=== PATIENT | female | born 1940 | race Caucasian/White ===

== ENCOUNTER 2019-02-26 11:08 | Inpatient (IN) | payer MEDICARE, OTHER ==
[~2019-02-26] VITALS: Ht 157.5 cm; Wt 94.1 kg
[2019-02-26] MEDS ORDERED: NS IV 1000 ML 1,000 ML IV SCH (11:16)
[2019-02-26] MEDS ORDERED: ACETAMINOPHEN 500 MG TAB (TYLENOL) PO PRN (11:30)
[2019-02-26] MEDS ORDERED: BISACODYL 10 MG SUPP (DULCOLAX) PR PRN (11:30)
[2019-02-26] MEDS ORDERED: CALCIUM CARBONATE 500 MG (TUMS) TAB.CHEW PO PRN (11:30)
[2019-02-26] MEDS ORDERED: ONDANSETRON 4 MG/2 ML (SDV) Z0FRAN IVP PRN (11:30)
[2019-02-26] MEDS ORDERED: DOCUSATE SODIUM 100 MG (COLACE) CAP PO PRN (11:30)
[2019-02-26] MEDS ORDERED: LOPERAMIDE 2 MG (IMODIUM) TABLET PO PRN (11:30)
[2019-02-26] MEDS ORDERED: diphenhydrAMINE 25 MG TAB (BENADRYL) PO PRN (11:30)
[2019-02-26] MEDS ORDERED: MELATONIN 3 MG TABLET PO PRN (11:30)
[2019-02-26 13:20] VITALS: BP 136/76
[2019-02-26 13:53] LABS: BILIRUBIN,URINE NEGATIVE (NEGATIVE); CLARITY,URINE CLEAR; COLOR,URINE YELLOW; GLUCOSE, URINE (UA) NEGATIVE (NEGATIVE); KETONES,URINE NEGATIVE (NEGATIVE); LEUKOCYTE ESTERASE ,URINE NEGATIVE (NEGATIVE); NITRITE,URINE NEGATIVE (NEGATIVE); PH,URINE 5.5 (5-9); PROTEIN,URINE NEGATIVE (NEGATIVE)
[2019-02-26] MEDS ORDERED: TRIA1TAB3 PO (13:53)
[2019-02-26] MEDS ORDERED: LOSA100T57 PO (13:53)
[2019-02-26] MEDS ORDERED: CLOP75TA28 PO (13:53)
[2019-02-26 13:54] VITALS: BP 136/76
[2019-02-26] MEDS ORDERED: RT-ALBUTEROL SULF 2.5 MG/3 ML PRE-MIX VIAL INH PRN (14:00)
[2019-02-26 14:03] LABS: ABG BASE EXCESS 0.5 MMOL/L (-2.5-2.5); ABG OXYGEN SATURATION 98 % (94-100); ABG PCO2 35 MMHG (35-45); ABG PH 7.45 (7.37-7.43); ABG PO2 82 MMHG (79-93); ABG TCO2 25.2 MMOL/L (21.0-31.0)
[2019-02-26 14:04] LABS: AMORPHOUS SEDIMENT,UR RARE AMOR URATES /LPF; BACTERIA,URINE NEGATIVE /HPF; SQUAMOUS EPITHELIAL CELL,UR RARE /HPF
[2019-02-26 14:04] LABS: ALLENS TEST YES-POS; INSPIRED O2 RA; PATIENT TEMP 36.7; VENTILATOR NO
[2019-02-26] MEDS ORDERED: AMLO5TAB9 PO (14:17)
[2019-02-26] MEDS ORDERED: FLEC150T15 PO (14:17)
[2019-02-26 14:20] LABS: BASOPHILS % (AUTO) 0 % (0-10); EOSINOPHILS % (AUTO) 0 % (0-10); HEMATOCRIT 23 % (35-52); HEMOGLOBIN 7.9 G/DL (11.5-16.0); LYMPHOCYTES # (AUTO) 0.9 X 10^3 (1.0-4.0); LYMPHOCYTES % (AUTO) 9 % (12-44); MEAN CORPUSCULAR HEMOGLOBIN 30 PG (25-34); MEAN CORPUSCULAR HGB CONC 34 G/DL (32-36); MEAN CORPUSCULAR VOLUME 89 FL (80-99); MEAN PLATELET VOLUME 10.1 FL (7.4-10.4); MONOCYTES # (AUTO) 0.9 X 10^3 (0.0-1.0); MONOCYTES % (AUTO) 9 % (0-12); NEUTROPHILS # (AUTO) 8.3 X 10^3 (1.8-7.8); NEUTROPHILS % (AUTO) 81 % (42-75); PLATELET COUNT 202 10^3/uL (130-400); RED CELL DISTRIBUTION WIDTH 14.1 % (10.0-14.5); WHITE BLOOD COUNT 10.2 10^3/uL (4.3-11.0)
[2019-02-26] MEDS ORDERED: BIOT50002 SL (14:31)
[2019-02-26] MEDS ORDERED: MULT1TAB69 PO (14:31)
[2019-02-26] MEDS ORDERED: CHOL200025 PO (14:31)
[2019-02-26] MEDS ORDERED: ALLO100T PO (14:32)
[2019-02-26] MEDS ORDERED: HYDR-3812 PO (14:33)
[2019-02-26] MEDS ORDERED: ALPR0.254 PO (14:33)
[2019-02-26 14:45] LABS: ALANINE AMINOTRANSFERASE 7 U/L (0-55); ALBUMIN 3.1 GM/DL (3.2-4.5); ALKALINE PHOSPHATASE 66 U/L (40-136); BILIRUBIN,TOTAL 0.3 MG/DL (0.1-1.0); BUN/CREATININE RATIO 18; CARBON DIOXIDE 23 MMOL/L (21-32); CHLORIDE 97 MMOL/L (98-107); GFR ESTIMATED 33; GLUCOSE 109 MG/DL (70-105); POTASSIUM 4.5 MMOL/L (3.6-5.0); SODIUM 128 MMOL/L (135-145); TOTAL PROTEIN 5.7 GM/DL (6.4-8.2)
[2019-02-26 14:47] LABS: INR 1.1 (0.8-1.4); PROTHROMBIN TIME PATIENT 14.2 SEC (12.2-14.7)
--- NOTE | 2019-02-26 14:48 | Diagnostic Imaging Report ---
INDICATION: Syncope. TIME OF EXAM: 02:35 p.m. COMPARISON: No prior studies are available for comparison. FINDINGS: The heart size is normal. The pulmonary vascularity is unremarkable. The lungs are clear. No infiltrate, effusion or pneumothorax is detected. IMPRESSION: No acute cardiopulmonary process is detected. Dictated by: Dictated on workstation # [id number]
--- NOTE | 2019-02-26 15:09 | Diagnostic Imaging Report ---
PROCEDURE: CT head without contrast. TECHNIQUE: Multiple contiguous axial images were obtained through the brain without the use of intravenous contrast. Auto Exposure Controls were utilized during the CT exam to meet ALARA standards for radiation dose reduction. INDICATION: Syncope. COMPARISON: No prior studies are available for comparison. FINDINGS: Ventricles and sulci are consistent with the patient's age. Moderate periventricular hypodensity is noted, consistent with senescent change. No sulcal effacement or midline shift is identified. No acute intra-axial or extra-axial hemorrhage is detected. Cisterns are patent. Visualized paranasal sinuses are clear. IMPRESSION: Senescent changes. No acute intracranial process is detected. Dictated by: Dictated on workstation # [id number]
[2019-02-26] MEDS: ALPRAZolam 0.25 MG (XANAX) TAB PO PRN ×2 (15:54→20:10)
[2019-02-26 16:00] VITALS: BP 169/87
--- NOTE | 2019-02-26 16:02 | Consultation-Cardiology ---
HPI-Cardiology Cardiology Consultation: Date of Consultation 02/26/19 Date of Admission Attending Physician Sharon Chaves DO Admitting Physician La,Local Physician Consulting Physician Ludy LYNN MD HPI: Time Seen by a Provider: 13:00 Chief Complaint: Syncope, atrial fibrillation This is a 79-year-old lady who follows with [facility] cardiology. She has history of atrial fibrillation. She has recent back surgery. However has had episodes of fainting, anemia. She denies any chest pain, shortness of breath, palpitations or lower extremity swelling. Review of Systems-Cardiology Review of Systems Constitutional: As described under HPI; No As described under HPI, No no symptoms reported, No chills, No fever, No lightheadedness Eyes: No As described under HPI, No no symptoms reported, No blindness, No blurred vision, No contact lenses, No drainage, No decreased acuity, No foreign body sensation, No pain, No vision change Ears/Nose/Throat: No As described under HPI, No no symptoms reported, No chronic hearing loss, No ear discharge, No ear pain, No nasal drainage, No ulcerations Respiratory: No no symptoms reported; As described under HPI; No As described under HPI, No cough, No orthopnea, No shortness of breath, No SOB with excertion Cardiovascular: No no symptoms reported; As described under HPI; No As de scribed under HPI, No chest pain, No edema, No irregular heart rate, No lightheadedness, No palpitations; syncope Gastrointestinal: No no symptoms reported, No As described under HPI, No abdomen distended, No abdominal pain, No blood streaked bowels, No constipation, No diarrhea, No nausea, No vomiting, No stool coloration changes Genitourinary: No As described under HPI, No burning, No dysuria, No discharge, No frequency, No flank pain, No hematuria, No urgency : Yes : No Skin: No rash, No skin related problems, No ulcerations Psychiatric/Neurological: No anxiety, No depression, No seizure, No focal weakness, No syncope Hematologic: No bleeding abnormalities VRW-Mzfvdi-Lwmyoy Hx Patient Social History Alcohol Use: Denies Use Recreational Drug Use: No Smoking Status: Former Smoker Type Used: Cigarettes Recent Foreign Travel: No Recent Infectious Disease Expo: No Hospitalization with Isolation: Unknown Physical Abuse Screen: No Sexual Abuse: No Immunizations Up To Date Date of Influenza Vaccine: Jan 02, 2019 Past Medical History PMH As described under Assessment. Family Medical History Family History: Patient reports no known family medical history. Allergies and Home Medications Allergies Coded Allergies: oxycodone (Verified Allergy, Unknown, Vomiting, 02/26/19) Home Medications Allopurinol 100 Mg Tablet, 100 MG PO DAILY, (Reported) LAST FILLED #90 11-05-18 Alprazolam 0.25 Mg Tablet, 0.125-0.25 MG PO DAILY PRN for ANXIETY, (Reported) TAKES 1/2 TO 1 (0.25MG) TABLET Amlodipine Besylate 5 Mg Tablet, 5 MG PO HS, (Reported) Flecainide Acetate 150 Mg Tablet, 150 MG PO BID, (Reported) Hydrocodone/Acetaminophen 1 Each Tablet, 1 TAB PO Q4H PRN for PAIN-MODERATE (5- 7), (Reported) Patient Home Medication List Home Medication List Reviewed: Yes Physical Exam-Cardiology Physical Exam Vital Signs/I&O 02/27/19 02/27/19 02/27/19 02/27/19 06:40 08:00 08:15 11:20 Temp 36.9 36.6 Pulse 74 79 71 Resp 20 18 B/P (MAP) 117/50 (72) 119/68 Pulse Ox 96 98 O2 Delivery Room Air Room Air Room Air 02/27/19 02/27/19 02/27/19 02/27/19 11:30 12:00 12:15 12:37 Temp 36.6 36.6 Pulse 67 66 65 Resp 18 22 B/P (MAP) 130/71 139/79 (99) Pulse Ox 98 99 O2 Delivery Room Air Room Air Room Air 02/27/19 02/27/19 14:35 16:00 Temp 36.6 36.5 Pulse 74 71 Resp 19 B/P (MAP) 150/76 138/69 (92) Pulse Ox 98 O2 Delivery Room Air 02/27/19 00:00 Intake Total 1050 ml Output Total 550 ml Balance 500 ml Capillary Refill : Constitutional: appears stated age; No apparent distress; well-developed, well- nourished HEENT: PERRL; No discharge; hearing is well preserved, oral hygience is good; No ulceration, No xanthelasmas are seen Neck: No carotid bruit; carotid pulses are 2 + bilaterally Respiratory: chest is bilaterally symmetric, lungs clear to auscultation Cardiovascular: regular rate-rhythm, S1 and S2 Gastrointestinal: soft, audible bowel sounds; No spleenomegaly Rectal: deferred Extremities: normal range of motion; No clubbing, No cyanosis; no lower extremity edema bilateral; No significant edema Neurologic/Psychiatric: no motor/sensory deficits, alert, normal mood/affect, oriented x 3, power is 5/5 both on sides Skin: normal color; No rash, No ulcerations Data Review Labs Laboratory Tests 02/27/19 03:20: White Blood Count 8.1, Red Blood Count 2.39L, Hemoglobin 7.1L, Hematocrit 21L, Mean Corpuscular Volume 90, Mean Corpuscular Hemoglobin 30, Mean Corpuscular Hemoglobin Concent 33, Red Cell Distribution Width 14.2, Platelet Count 200, Mean Platelet Volume 10.2, Neutrophils (%) (Auto) 63, Lymphocytes (%) (Auto) 24, Monocytes (%) (Auto) 10, Eosinophils (%) (Auto) 3, Basophils (%) (Auto) 0, Neutrophils # (Auto) 5.1, Lymphocytes # (Auto) 1.9, Monocytes # (Auto) 0.8, Eosinophils # (Auto) 0.2, Basophils # (Auto) 0.0, Sodium Level 130L, Potassium Level 3.9, Chloride Level 99, Carbon Dioxide Level 21, Anion Gap 10, Blood Urea Nitrogen 26H, Creatinine 1.32H, Estimat Glomerular Filtration Rate 39, BUN/Creatinine Ratio 20, Glucose Level 83, Calcium Level 8.7, Corrected Calcium 9.6, Total Bilirubin 0.4, Aspartate Amino Transf (AST/SGOT) 34, Alanine Aminotransferase (ALT/SGPT) 7, Alkaline Phosphatase 65, Total Protein 5.1L, Albumin 2.9L Microbiology 02/26/19 Blood Culture - Preliminary, Resulted No growth 02/26/19 Urine Culture - Final, Complete NO GROWTH 02/26/19 Influenza Types A,B Antigen (ANTHONY) - Final, Complete A/P-Cardiology Assessment/Admission Diagnosis Recent spine surgery, Paroxysmal atrial fibrillation, Chronic kidney disease, Anemia, Hyponatremia, Syncope. Plan Recent spine surgery, DVT prophylaxis. Paroxysmal atrial fibrillation, not on oral anticoagulation due to recent spine surgery. Flecainide as an outpatient. Chronic kidney disease, defer to the primary team. Anemia, transfusion. Hyponatremia, unclear etiology. Syncope. Telemetry, echocardiogram. Thank you for your consultation. Please call me if you have any questions. Malcom Lynn MD, FACP, FACC, [facility] [place], FHRS, CCDS Interventional Cardiology Cardiac Electrophysiology Vascular Medicine and Endovascular Interventions Clinical Quality Measures DVT/VTE Risk/Contraindication: Risk Factor Score Per Nursin RFS Level Per Nursing on Admit: 4+=Very High Contraindications-Pharm: Other *list below* Other: Recent spine surgery high risk for spinal hematoma and paralysis Ludy LYNN MD Feb 26, 2019 16:02
[2019-02-26] MEDS ORDERED: IRON SUCROSE 200 MG/10 ML (VENOFER) VIAL IV NR (17:00)
--- NOTE | 2019-02-26 17:09 | History & Physical ---
History of Present Illness HPI/Chief Complaint CC: Syncope HPI: This is a 79yoWF clinic patient of Dr Peraza in [place] and Dr Giovanny Cavazos Cardiology who has a h/o AF, gout and CRI with HTN who presents from [facility] to cardiac step down taking a detour from the planned IRF admit due to syncope at [facility] and decline of status. She has orthostasis episodes in the past but she had several episodes after she underwent spine surgery on Saturday by Dr Delong and require 1 unit of blood and BP remained labile limiting her PT and resulted in slow recovery. Bowels were very loose last night and had a significant episode of syncope prior to transferring to [facility] so she was instead admitted to acute care and Cardiology was consulted and underwent a sepsis w/u which was negative and placed on supportive care in the meantime. All results looked reassuring. Source: patient, family, RN/MD, old records Exam Limitations: no limitations Date Seen 02/26/19 Time Seen by a Provider: 17:00 Attending Physician Sharon James DO PCP No,Local Physician Referring Physician Date of Admission Feb 26, 2019 at 13:25 Home Medications & Allergies Home Medications Reviewed patient Home Medication Reconciliation performed by pharmacy medication reconciliations crime scene evidence technician and/or nursing. Patients Allergies have been reviewed. Allergies Allergies Coded Allergies oxycodone (Verified Allergy, Unknown, Vomiting, 02/26/19) Past Xpelnwa-Tsupxh-Ptnset Hx Past Med/Social Hx: Reviewed Nursing Past Med/Soc Hx, Reviewed and Corrections made Patient Social History Marrital Status: single Employed/Student: retired Alcohol Use: Denies Use Recreational Drug Use: No Smoking Status: Former Smoker Former Smoker, Quit: Mar 04, 1986 Type Used: Cigarettes Physical Abuse Screen: No Sexual Abuse: No Recent Foreign Travel: No Contact w/other who traveled: No Recent Hopitalizations: Yes Recent Infectious Disease Expo: No Immunizations Up To Date Date of Influenza Vaccine: Jan 02, 2019 Seasonal Allergies Seasonal Allergies: Yes Past Medical History Cardiac: Atrial Fibrillation, High Cholesterol, Hypertension Musculoskeletal: Osteoporosis, Arthritis, Chronic Back Pain, Gout Psychosocial: Anxiety History of Blood Disorders: No Family History Patient reports no known family medical history. Review of Systems Constitutional: see HPI, dizziness, malaise, weakness Gastrointestinal: diarrhea Musculoskeletal: back pain, joint pain Psychiatric/Neurological: Anxiety, Depressed All Other Systems Reviewed Negative Unless Noted: Yes Physical Exam Physical Exam Vital Signs Vital Signs - First Documented 02/26/19 02/26/19 02/26/19 13:05 13:20 13:54 Temp 36.7 Pulse 68 Resp 16 B/P (MAP) 136/76 (96) Pulse Ox 95 O2 Delivery Room Air FiO2 21 Capillary Refill : Height, Weight, BMI Height: '" Weight: lbs. oz. kg; 40.23 BMI Method: General Appearance: No Apparent Distress, WD/WN, Chronically ill, Obese Eyes: Bilateral Eye Normal Inspection, Bilateral Eye PERRL HEENT: PERRL/EOMI, Normal ENT Inspection, Pharynx Normal Neck: Full Range of Motion, Normal Inspection, Non Tender, Supple, Carotid Bruit Respiratory: Chest Non Tender, Lungs Clear, Normal Breath Sounds, No Accessory Muscle Use, No Respiratory Distress Cardiovascular: Regular Rate, Rhythm, No Edema, No Gallop, No JVD, No Murmur, Normal Peripheral Pulses Gastrointestinal: Normal Bowel Sounds, No Organomegaly, No Pulsatile Mass, Non Tender, Soft Back: Decreased Range of Motion, Muscle Spasm, Vertebral Tenderness Extremity: Normal Capillary Refill, Normal Inspection, Normal Range of Motion, Non Tender, No Calf Tenderness, No Pedal Edema Neurologic/Psychiatric: Alert, Oriented x3, rigging engineer II-XII Norm as Tested, Depressed Affect, Motor Weakness (generalized all extremities 4/5, fall risk) Skin: Normal Color, Warm/Dry Lymphatic: No Adenopathy Results Results/Procedures Labs Laboratory Tests 02/26/19 14:05 Patient resulted labs reviewed. Assessment/Plan Admission Diagnosis Assessment: Syncope Orthostasis episodes in the past HTN labile levels Renal insufficiency Hyponatremia Anemia s/p 1 unit of blood at [facility] Dehydration Chronic AF Plan: Home meds except Plavix due to recent spine surgery SCD's Cardiology evaluation Fluid restriction NS IVF 90cc/hr Venofer Admission Status: Inpatient Order (span 2 midnights) Reason for Inpatient Admission: Sycope with severe anemia following spine surgery Diagnosis/Problems Diagnosis/Problems (1) Syncope (2) Orthostasis (3) Hypertension (4) Status post lumbar spine surgery for decompression of spinal cord (5) Hyponatremia (6) Anemia (7) Iron deficiency (8) Renal insufficiency (9) Anxiety Clinical Quality Measures DVT/VTE Risk/Contraindication: Risk Factor Score Per Nursin RFS Level Per Nursing on Admit: 4+=Very High Contraindications-Pharm: Other *list below* Other: Recent spine surgery high risk for spinal hematoma and paralysis SHARON JAMES DO Feb 26, 2019 17:09
[2019-02-26] MEDS: NS IV 1000 ML 1,000 ML IV SCH (17:18)
[2019-02-26 20:00] VITALS: BP 124/67
[2019-02-26] MEDS: SENNA W/DOCUSATE (SENOKOT S) TABLET PO SCH (20:10)
[2019-02-26] MEDS: FLECAINIDE 100 MG (TAMBOCOR) TAB PO SCH (20:10)
[2019-02-26] MEDS: amLODIPine 5 MG (NORVASC) TAB PO SCH (20:10)
[2019-02-26] MEDS ORDERED: FLECAINIDE ACETATE 150 MG PO SCH (21:00)
[2019-02-26] MEDS: ACETAMINOPHEN 500 MG TAB (TYLENOL) PO PRN (22:25)
[2019-02-26] MEDS: HYDROcodone/APAP 5 MG/325 MG (LORTAB) TAB PO PRN (23:13)
[2019-02-27] VITALS (9 sets, daily range): BP systolic 117–160; BP diastolic 50–79
[2019-02-27] MEDS: NS IV 1000 ML 1,000 ML IV SCH (00:59)
[2019-02-27] MEDS: HYDROcodone/APAP 5 MG/325 MG (LORTAB) TAB PO PRN ×3 (03:24→13:28)
[2019-02-27 04:12] LABS: BASOPHILS % (AUTO) 0 % (0-10); EOSINOPHILS # (AUTO) 0.2 10^3/uL (0.0-0.3); EOSINOPHILS % (AUTO) 3 % (0-10); HEMATOCRIT 21 % (35-52); HEMOGLOBIN 7.1 G/DL (11.5-16.0); LYMPHOCYTES # (AUTO) 1.9 X 10^3 (1.0-4.0); LYMPHOCYTES % (AUTO) 24 % (12-44); MEAN CORPUSCULAR HEMOGLOBIN 30 PG (25-34); MEAN CORPUSCULAR HGB CONC 33 G/DL (32-36); MEAN CORPUSCULAR VOLUME 90 FL (80-99); MEAN PLATELET VOLUME 10.2 FL (7.4-10.4); MONOCYTES # (AUTO) 0.8 X 10^3 (0.0-1.0); MONOCYTES % (AUTO) 10 % (0-12); NEUTROPHILS # (AUTO) 5.1 X 10^3 (1.8-7.8); NEUTROPHILS % (AUTO) 63 % (42-75); PLATELET COUNT 200 10^3/uL (130-400); RED CELL DISTRIBUTION WIDTH 14.2 % (10.0-14.5); WHITE BLOOD COUNT 8.1 10^3/uL (4.3-11.0)
[2019-02-27] MEDS: fentaNYL INJECTION 100 MCG/2 ML AMP IVP PRN ×4 (04:36→21:41)
[2019-02-27 04:52] LABS: ALBUMIN 2.9 GM/DL (3.2-4.5); BILIRUBIN,TOTAL 0.4 MG/DL (0.1-1.0); CALCIUM 8.7 MG/DL (8.5-10.1); CREATININE SERUM 1.32 MG/DL (0.60-1.30); POTASSIUM 3.9 MMOL/L (3.6-5.0); TOTAL PROTEIN 5.1 GM/DL (6.4-8.2)
[2019-02-27] MEDS: FLECAINIDE 100 MG (TAMBOCOR) TAB PO SCH ×2 (08:19→20:25)
[2019-02-27] MEDS: ALLOPURINOL 100 MG (ZYLOPRIM) TAB PO SCH (08:20)
[2019-02-27] MEDS: SENNA W/DOCUSATE (SENOKOT S) TABLET PO SCH ×2 (08:20→20:27)
--- NOTE | 2019-02-27 08:38 | Occupational Therapy Eval ---
OT Evaluation-General/PLF Medical Diagnosis Admission Date Feb 26, 2019 at 13:25 Medical Diagnosis: syncope/weakness Onset Date: Feb 26, 2019 Therapy Diagnosis Therapy Diagnosis: impaired ADLs and functional mobility Precautions Precautions/Isolations: Fall Prevention, Standard Precautions, Pressure Ulcer Safety Interventions: None Referral Physician: Andie Referral Reason: Activity Tolerance, Self Care, Evaluation/Treatment, Strengthening/ROM Medical History Pertinent Medical History: Atrial Fib, Arthritis, HTN Additional Medical History Spinal surgery on Saturday02/23/19. Hx of AFib, gout, CRI with HTN, high cholesterol, osteoporosis, arthritis, chronic back pain, anxiety Current History Per H&P: "This is a 79yoWF clinic patient of Dr Peraza in [place] and Dr Giovanny Cavazos Cardiology who has a h/o AF, gout and CRI with HTN who presents from [facility] to cardiac step down taking a detour from the planned IRF admit due to syncope at [facility] and decline of status. She has orthostasis episodes in the past but she had several episodes after she underwent spine surgery on Saturday by Dr Delong and require 1 unit of blood and BP remained labile limiting her PT and resulted in slow recovery. Bowels were very loose last night and had a significant episode of syncope prior to transferring to [facility] IR[facility] so she was instead admitted to acute care and Cardiology was consulted and underwent a sepsis w/u which was negative and placed on supportive care in the meantime. All results looked reassuring." Reviewed History: Yes Social History Home: Single Level Current Living Status: Alone Entry Into Home: Stairs With Railing Steps Into Home: 2 (in garage) ADL-Prior Level of Function SCALE: Activities may be completed with or without assistive devices. 6-Wtcbjlgfrz-mmfhkez completes the activity by him/herself with no assistance from a helper. 5-Set-up or Clean-up Assistance-helper sets up or cleans up; patient completes activity. [place] assists only prior to or following the activity. 4-Supervision or Touching Assistance-helper provides verbal cues and/or touching/steadying and/or contact guard assistance as patient completes activity. Assistance may be provided throughout the activity or intermittently. 3-Partial/Moderate Assistance-helper does LESS THAN HALF the effort. Montgomery lifts, holds or supports trunk or limbs, but provides less than half the effort. 2-Substantial/Maximal Assistance-helper does MORE THAN HALF the effort. Montgomery lifts or holds trunk or limbs and provides more than half the effort. 2-Ukvkwvnbe-jzdwdr does ALL the effort. Patient does none of the effort to complete the activity. Or, the assistance of 2 or more helpers is required for the patient to complete the activity. If activity was not attempted, code reason: 7-Patient Refused. 9-Not Applicable-not attempted and the patient did not perform the activity before the current illness, exacerbation or injury. 10-Not Attempted due to Environmental Limitations-(lack of equipment, weather restraints, etc.). 88-Not Attempted due to Medical Conditions or Safety Concerns. ADL PLOF Comments Pt reports being independent with all ADLs prior to hospitalization/spinal surgery. She denies needing any assistance with ADL tasks. Self Care: Independent Functional Cognition: Independent DME/Equipment: Bath Chair, Shower (walk in shower with small step) DME/Equipment Comments Pt has a cane and walker at home that she had used prior to hospitalization. She uses the walker when she knows she is going to be on her feet a lot during the day. OT Current Status Subjective Pt seated EOB with daughter present. Agreeable to OT evaluation at this time. Pt reports pain of "10+/10". Nursing present to give pt pain meds during session. Pain Numeric Pain Scale: 10-Worst Possible Pain Mental Status/Objective Patient Orientation: Person, Place, Time, Situation Attachments: IV Current Glasses/Contacts: Yes Hearing Aids: No Dentures/Partials: No Hand Dominance: Right Upper Extremity ROM decreased, BUE shoulder flexion to approximately 90 degrees reporting increased pain with movement. Pt is able to bend arms and touch the back of her head. Upper Extremity Coordination WFL Upper Extremity Sensation Pt denies tingling/numbness in BUEs Upper Extremity Strength grossly 3/5 MMT ADL-Treatment Eating (QC): 6 (Per pt and daughter report, pt was able to eat breakfast this AM without assistance.) Other Treatments Pt seated EOB throughout session with arms resting on walker in front of her. No LOB noted during tx. Pt provided information about PLOF and home set up and she participated in ROM screening reporting increased pain with movements. Nurse present to give pt meds, she was able to bring pills and water to her mouth in order to swallow pills. Pt declines further ADLs at this time due to high pain level. Post OT session, pt seated EOB with daughter and nurse present, call light in reach and all needs met. Education OT Patient Education: Correct positioning, Energy conservation, Modified ADL techniques, Progress toward Goal/Update tx plan, Purpose of tx/functional activities Teaching Recipient: Patient, Family Teaching Methods: Discussion Response to Teaching: Verbalize Understanding OT Distribution Superintendent Goals Care Home Goals Time Frame: Mar 13, 2019 Oral Hygiene (QC): 6 Toileting Hygiene (QC): 4 Shower/Bathe Self (QC): 4 Upper Body Dressing (QC): 4 Lower Body Dressing (QC): 3 On/Off Footwear (QC): 3 Additional Goals: 1-Demonstrate ADL Tasks, 2-Verbalize Understanding, 3- ImproveStrength/Dirk 1=Demonstrate adherence to instructed precautions during ADL tasks. 2=Patient will verbalize/demonstrate understanding of assistive devic es/modifications for ADL. 3=Patient will improve strength/tolerance for activity to enable patient to perform ADL's. OT Education/Plan Problem List/Assessment Assessment: Decreased Activ Tolerance, Decreased UE Strength, Impaired I ADL's, Impaired Self-Care Skills Discharge Recommendations Plan/Recommendations: Continue POC Barriers to Progress pain Treatment Plan/Plan of Care Treatment,Training & Education: Yes Patient would benefit from OT for education, treatment and training to promote independence in ADL's, mobility, safety and/or upper extremity function for ADL's. Plan of Care: ADL Retraining, Functional Mobility, UE Funct Exercise/Act Treatment Duration: Mar 13, 2019 Frequency: 5 times per week Estimated Hrs Per Day: .25 hour per day Agreement: Yes Rehab Potential: Fair Time/GCodes Start Time: 08:15 Stop Time: 08:24 Total Time Billed (hr/min): 9 Billed Treatment Time 1, NELSON CAST OT Feb 27, 2019 08:38
[2019-02-27] MEDS ORDERED: NS IV 500 ML 500 ML IV SCH (09:35)
[2019-02-27] MEDS ORDERED: FUROSEMIDE 40 MG/4 ML INJ (LASIX) IVP NR (09:45)
--- NOTE | 2019-02-27 10:43 | Physical Therapy Evaluation ---
PT Evaluation-General Medical Diagnosis Admission Date Feb 26, 2019 at 13:25 Medical Diagnosis: syncope/weakness Onset Date: Feb 26, 2019 Therapy Diagnosis Therapy Diagnosis: impairment of gait Precautions Precautions/Isolations: Fall Prevention, Standard Precautions back brace on when out of bed Weight Bear Status Full Weight Bearing Full Weight Bearing Referral Physician: Andie Reason for Referral: Evaluation/Treatment Medical History Pertinent Medical History: Atrial Fib, Arthritis, HTN Additional Medical History chronic LBP, gout, osteoporosis, (B) knee replacements in 2002 Current History Pt has chronic low back pain. Surgery 12 yrs ago for spinal fusion. Over past month has had progressive back pain with radicular symptoms. Underwent spinal surgery 02/22/19 to remove old hardware and do new fusion L2-4. Pt admitted to this facility due to pain and syncopal episodes post surgery. Reviewed History: Yes Social History Home: Single Level Current Living Status: Alone Entry Into Home: Stairs With Railing PT Steps Into Home: 2 (in garage) Was out in the community including driving prior to February at which time back pain became too severe. Prior Prior Level of Function SCALE: Activities may be completed with or without assistive devices. 5-Qtnxshmsjw-zbiemep completes the activity by him/herself with no assistance from a helper. 5-Set-up or Clean-up Assistance-helper sets up or cleans up; patient completes activity. [place] assists only prior to or following the activity. 4-Supervision or Touching Assistance-helper provides verbal cues and/or touching/steadying and/or contact guard assistance as patient completes activity. Assistance may be provided throughout the activity or intermittently. 3-Partial/Moderate Assistance-helper does LESS THAN HALF the effort. [place] lifts, holds or supports trunk or limbs, but provides less than half the effort. 2-Substantial/Maximal Assistance-helper does MORE THAN HALF the effort. [place] lifts or holds trunk or limbs and provides more than half the effort. 5-Edegbfxqa-shpfsk does ALL the effort. Patient does none of the effort to complete the activity. Or, the assistance of 2 or more helpers is required for the patient to complete the activity. If activity was not attempted, code reason: 7-Patient Refused. 9-Not Applicable-not attempted and the patient did not perform the activity before the current illness, exacerbation or injury. 10-Not Attempted due to Environmental Limitations-(lack of equipment, weather restraints, etc.). 88-Not Attempted due to Medical Conditions or Safety Concerns. Bed Mobility: 6 Transfers (B,C,W/C): 6 Gait: 6 Stairs: 6 Wheelchair Mobility: 9 Indoor Mobility (Ambulation): Independent Stairs: Independent Prior Devices Use: Walker Prior Device Use: cane PT Evaluation-Current Subjective Pt reports she is currently limited by pain. Has a history of syncopal episodes due to blood pressure but has not had falls. She feels them coming on and sits down. Currently wants to begin therapy with goal of returning home. Objective Patient Orientation: Normal For Age Attachments: Barcenas Catheter, IV ROM/Strength ROM Lower Extremities hip flexion 90 degrees due to low back pain. Knees WFL (B) Ankles WFL (B) Strength Lower Extremities hip flex (L) 3/5 hip flex (R) 2/5 (B) knee flex/ext 4/5 (B) ankle DF 4+/5 Trunk 2/5 Sensory Vision: Functional Hand Dominance: Right Sensation Right Upper Extremit: Intact Sensation Left Upper Extremity: Intact Sensation Right Lower Extremit: Intact Sensation Left Lower Extremity: Intact Transfers Roll Left to Right (QC): 2 Sit to Lying (QC): 2 Lying to Sitting/Side of Bed(Q: 2 Sit to Stand (QC): 3 Chair/Mea-qh-Vbffx Xfer(QC): 3 Toilet Transfer: 3 Car Transfer (QC): 88 Gait Does the Patient Walk?: Yes Mode of Locomotion: Walk Anticipated Mode of Locomotion: Walk Walk 10 feet (QC): 3 Walk 50 ft with 2 Turns(QC): 88 Walk 150 ft (QC): 88 Walking 10ft/uneven surface-QC: 88 Distance: 25 Gait Assistive Device: FWW Wheelchair Training Does the Pt Use a Wheelchair?: No Stairs #of Steps: 88 1 Step (curb) (QC): 88 4 Steps (QC): 88 12 Steps (QC): 88 Balance Sitting Static: Poor Sitting Dynamic: Poor Standing Static: Poor Standing Dynamic: Poor Picking up an Object (QC): 88 Assessment/Needs Pt motivated and put forth good effort with rehab. She is a bit groggy from meds and pain. Pt has weakness in (B) LEs, unsteady balance, impaired bed mobility, and impaired gait. She will benefit from skilled therapy to improve m obility and promote return to home. Rehab Potential: Good Post Rehab Potential-Barriers: chronic back pain PT Vb Net Developer Goals Usp Goals PT Usp Goals Time Frame: Mar 02, 2019 Roll Left & Right (QC): 3 Sit to Lying (QC): 3 Lying-Sitting on Side/Bed(QC): 3 Sit to Stand (QC): 4 Chair/Xbn-qt-Wpepf Xfer(QC): 4 Toilet Transfer (QC): 4 Car Transfer (QC): 4 Does the Patient Walk: Yes Walk 10 feet (QC): 4 Walk 50ft with 2 Turns (QC): 4 Walk 150 ft (QC): 88 Walking 10ft on Uneven Surface: 88 1 Step (curb) (QC): 88 4 Steps (QC): 88 12 Steps (QC): 88 Picking up an Object (QC): 88 Does the Pt use WC or Scooter?: No Type: Manual Type: Manual PT Plan Problem List Problem List: Activity Tolerance, Functional Strength, Safety, Balance, Gait, Transfer, Bed Mobility, ROM Treatment/Plan Treatment Plan: Continue Plan of Care Treatment Plan: Bed Mobility, Functional Strength, Gait, Therapeutic Exercise, Transfers Treatment Duration: Mar 01, 2019 Frequency: 11 times per week Estimated Hrs Per Day: .25 hour per day Patient and/or Family Agrees t: Yes Pt will benefit from continued therapy. ARU candidate from a mobility standpoint when pain under control and medically stable Discharge Recommendations Target Placement ARU then home Time/GCodes Time In: 935 Time Out: 1010 Total Billed Treatment Time: 35 Total Billed Treatment visit, evaluation high complexity 35 min DAMON LARSEN PT Feb 27, 2019 10:43
[2019-02-27] MEDS ORDERED: POLYETHYLENE GLYCOL 17 GM (MIRALAX) PACK PO NR (10:45)
--- NOTE | 2019-02-27 10:45 | Progress Note ---
Subjective Date Seen by a Provider: Feb 27, 2019 Time Seen by a Provider: 10:20 Subjective/Events-last exam Patient had a rough night with pain so changed the plan given to me from the family and restarted hydrocodone 5/325 started a little bit of fentanyl 12.5 mcg and that seems to be doing very well No confusion from the pain medication noted Bowels haven't moved since 2 days ago loose incident with an accident but she is prone to constipation so we'll start meds Will receive 1 unit of blood since hemoglobin 7.1 and she does have cardiac risk factors and this will also help with her recovery Patient up in a chair and actually doing very well today Mat or other 2 daughters Receiving iron infusions first dose was last night Barcenas catheter will be removed after Lasix completed tonight Creatinine 1.3 still needs to see nephrology and we did discuss that Orthostasis is an issue and is a chronic issue Appreciate cardiology reviewing everything SCDs only since her coagulation contraindicated due to recent spinal surgery and high risk for spinal hematoma Checked meds and labs Conferred with senior software engineer analytics therapy notes Will go to inpatient rehabilitation tomorrow Saturday Review of Systems General: Fatigue Gastrointestinal: Constipation Musculoskeletal: back pain, leg pain Neurological: Weakness, Numbness, Incoordination Focused Exam Lactate Level 02/26/19 14:05: Lactic Acid Level 0.87 Objective Exam Last Set of Vital Signs Vital Signs Date Time Temp Pulse Resp B/P (MAP) Pulse Ox O2 Delivery O2 Flow Rate FiO2 02/27/19 08:15 Room Air 02/27/19 08:00 36.9 79 20 117/50 (72) 96 02/26/19 13:54 21 Capillary Refill : Less Than 3 Seconds I&O Intake and Output 02/27/19 00:00 Intake Total 1050 ml Output Total 550 ml Balance 500 ml Intake Oral 450 ml IV Total 600 ml Output Urine Total 550 ml Daily Weight Change No General: Alert, Oriented X3, Cooperative, No Acute Distress, Other (much improved today) Lungs: Clear to Auscultation, Normal Air Movement Heart: Regular Rate Neuro: Normal Speech, Strength at 5/5 X4 Ext, Other (slow ambulation with walker and therapy) Psych/Mental Status: Mental Status NL, Mood NL Results Lab Laboratory Tests 02/26/19 13:40: Urine Color YELLOW, Urine Clarity CLEAR, Urine pH 5.5, Urine Specific [place] 1.020, Urine Protein NEGATIVE, Urine Glucose (UA) NEGATIVE, Urine Ketones NEGATIVE, Urine Nitrite NEGATIVE, Urine Bilirubin NEGATIVE, Urine Urobilinogen 0.2, Urine Leukocyte Esterase NEGATIVE, Urine RBC (Auto) NEGATIVE, Urine RBC NONE, Urine WBC NONE, Urine Squamous Epithelial Cells RARE, Urine Crystals PRESENTH, Urine Amorphous Sediment RARE TYSON URATESH, Urine Bacteria NEGATIVE, Urine Casts NONE, Urine Mucus SMALLH, Urine Culture Indicated NO 02/26/19 13:50: Blood Gas Puncture Site RR, Blood Gas Patient Temperature 36.7, Arterial Blood pH 7.45H, Arterial Blood Partial Pressure CO2 35, Arterial Blood Partial Pressure O2 82, Arterial Blood HCO3 24, Arterial Blood Total CO2 25.2, Arterial Blood Oxygen Saturation 98, Arterial Blood Base Excess 0.5, [place] Test YES-POS, Blood Gas Ventilator Setting NO, Blood Gas Inspired Oxygen RA 02/26/19 14:05: White Blood Count 10.2, Red Blood Count 2.62L, Hemoglobin 7.9L, Hematocrit 23L, Mean Corpuscular Volume 89, Mean Corpuscular Hemoglobin 30, Mean Corpuscular Hem oglobin Concent 34, Red Cell Distribution Width 14.1, Platelet Count 202, Mean Platelet Volume 10.1, Neutrophils (%) (Auto) 81H, Lymphocytes (%) (Auto) 9L, Monocytes (%) (Auto) 9, Eosinophils (%) (Auto) 0, Basophils (%) (Auto) 0, Neutrophils # (Auto) 8.3H, Lymphocytes # (Auto) 0.9L, Monocytes # (Auto) 0.9, Eosinophils # (Auto) 0.0, Basophils # (Auto) 0.0, Prothrombin Time 14.2, INR Comment 1.1, Activated Partial Thromboplast Time 105H, Sodium Level 128L, Potassium Level 4.5, Chloride Level 97L, Carbon Dioxide Level 23, Anion Gap 8, Blood Urea Nitrogen 27H, Creatinine 1.50H, Estimat Glomerular Filtration Rate 33, BUN/Creatinine Ratio 18, Glucose Level 109H, Lactic Acid Level 0.87, Calcium Level 9.0, Corrected Calcium 9.7, Iron Level 13L, Total Bilirubin 0.3, Aspartate Amino Transf (AST/SGOT) 42H, Alanine Aminotransferase (ALT/SGPT) 7, Alkaline Phosphatase 66, Troponin I < 0.028, B-Type Natriuretic Peptide 134.6H, Total Protein 5.7L, Albumin 3.1L 02/27/19 03:20: White Blood Count 8.1, Red Blood Count 2.39L, Hemoglobin 7.1L, Hematocrit 21L, Mean Corpuscular Volume 90, Mean Corpuscular Hemoglobin 30, Mean Corpuscular Hemoglobin Concent 33, Red Cell Distribution Width 14.2, Platelet Count 200, Mean Platelet Volume 10.2, Neutrophils (%) (Auto) 63, Lymphocytes (%) (Auto) 24, Monocytes (%) (Auto) 10, Eosinophils (%) (Auto) 3, Basophils (%) (Auto) 0, Neutrophils # (Auto) 5.1, Lymphocytes # (Auto) 1.9, Monocytes # (Auto) 0.8, Eosinophils # (Auto) 0.2, Basophils # (Auto) 0.0, Sodium Level 130L, Potassium L evel 3.9, Chloride Level 99, Carbon Dioxide Level 21, Anion Gap 10, Blood Urea Nitrogen 26H, Creatinine 1.32H, Estimat Glomerular Filtration Rate 39, BUN/Creatinine Ratio 20, Glucose Level 83, Calcium Level 8.7, Corrected Calcium 9.6, Total Bilirubin 0.4, Aspartate Amino Transf (AST/SGOT) 34, Alanine Aminotransferase (ALT/SGPT) 7, Alkaline Phosphatase 65, Total Protein 5.1L, Albumin 2.9L Microbiology 02/26/19 Urine Culture - Final, Complete NO GROWTH 02/26/19 Influenza Types A,B Antigen (ANTHONY) - Final, Complete Assessment/Plan Assessment/Plan Assess & Plan/Chief Complaint Assessment: Syncope Orthostasis episodes in the past HTN labile levels Renal insufficiency improved 1.3 today after fluids Hyponatremia improved with fluid restriction and normal saline IV fluids 130 today Anemia s/p 1 unit of blood at [facility] and will receive 1 unit today since hemo globin 7.1 and has cardiac risk factors Dehydration resolved with IV fluids we'll Hep-Lock fluids now Chronic AF Plan: Home meds except Plavix due to recent spine surgery SCD's Cardiology evaluation Fluid restriction NS IVF 90cc/hr will be hep-locked Venofer 1 unit of blood today with Lasix afterwards Inpatient rehabilitation tomorrow to continue recovery Diagnosis/Problems Diagnosis/Problems (1) Syncope (2) Orthostasis (3) Hypertension (4) Status post lumbar spine surgery for decompression of spinal cord (5) Hyponatremia (6) Anemia (7) Iron deficiency (8) Renal insufficiency (9) Anxiety (10) Transfusion of blood during current hospitalisation (11) Constipation Clinical Quality Measures DVT/VTE Risk/Contraindication: Risk Factor Score Per Nursin RFS Level Per Nursing on Admit: 4+=Very High Contraindications-Pharm: Other *list below* Other: Recent spine surgery high risk for spinal hematoma and paralysis PIERCE JAMES DO Feb 27, 2019 10:45
[2019-02-27] MEDS: ACETAMINOPHEN 500 MG TAB (TYLENOL) PO PRN (10:56)
[2019-02-27] MEDS: DOCUSATE SODIUM 100 MG (COLACE) CAP PO SCH ×2 (11:26→21:00)
[2019-02-27] MEDS: DICLOFENAC 1% GEL 100 GM (VOLTAREN) TUBE TOP SCH ×3 (13:25→21:00)
[2019-02-27] MEDS ORDERED: FUROSEMIDE 40 MG/4 ML INJ (LASIX) ONE (14:21)
--- NOTE | 2019-02-27 15:11 | Physical Therapy Daily Note ---
PT Daily Note-Current Subjective Pt just finished receiving blood. She feels stronger this pm. Mental Status Patient Orientation: Normal For Age Transfers SCALE: Activities may be completed with or without assistive devices. 3-Zmdnjsnnjd-hgthvhr completes the activity by him/herself with no assistance from a helper. 5-Set-up or Clean-up Assistance-helper sets up or cleans up; patient completes activity. [place] assists only prior to or following the activity. 4-Supervision or Touching Assistance-helper provides verbal cues and/or touching/steadying and/or contact guard assistance as patient completes activity. Assistance may be provided throughout the activity or intermittently. 3-Partial/Moderate Assistance-helper does LESS THAN HALF the effort. [place] lifts, holds or supports trunk or limbs, but provides less than half the effort. 2-Substantial/Maximal Assistance-helper does MORE THAN HALF the effort. [place] lifts or holds trunk or limbs and provides more than half the effort. 4-Vjghkzgjr-ydhmbp does ALL the effort. Patient does none of the effort to complete the activity. Or, the assistance of 2 or more helpers is required for the patient to complete the activity. If activity was not attempted, code reason: 7-Patient Refused. 9-Not Applicable-not attempted and the patient did not perform the activity before the current illness, exacerbation or injury. 10-Not Attempted due to Environmental Limitations-(lack of equipment, weather restraints, etc.). 88-Not Attempted due to Medical Conditions or Safety Concerns. Patient transferred supine to sit at EOB with Moderate assist. Slow with intermittent assist between LEs and trunk. Sit to stand at walker with Min A. Weight Bearing Full Weight Bearing Full Weight Bearing Gait Training Ambulate 100 ft with FWW and Min A. Family nearby to provide chair if needed. Educated to stay close to walker and stand upright. Pt wears lumbar brace when out of bed. Up to bedside chair post treatment. PT Alf Goals Overlocker Goals PT Overlocker Goals Time Frame: Mar 02, 2019 Roll Left & Right (QC): 3 Sit to Lying (QC): 3 Lying-Sitting on Side/Bed(QC): 3 Sit to Stand (QC): 4 Chair/Adi-ql-Xoixt Xfer(QC): 4 Toilet Transfer (QC): 4 Car Transfer (QC): 4 Does the Patient Walk: Yes Walk 10 feet (QC): 4 Walk 50ft with 2 Turns (QC): 4 Walk 150 ft (QC): 88 Walking 10ft on Uneven Surface: 88 1 Step (curb) (QC): 88 4 Steps (QC): 88 12 Steps (QC): 88 Picking up an Object (QC): 88 Does the Pt use WC or Scooter?: No Type: Manual Type: Manual PT Plan Treatment/Plan Treatment Plan: Continue Plan of Care Treatment Plan: Bed Mobility, Functional Strength, Gait, Therapeutic Exercise, Transfers Treatment Duration: Mar 01, 2019 Frequency: 11 times per week Estimated Hrs Per Day: .25 hour per day Patient and/or Family Agrees t: Yes Time/GCodes Time In: 1450 Time Out: 1510 Total Billed Treatment Time: 20 Total Billed Treatment visit, gait 15min, FA 5 min DAMON LARSEN PT Feb 27, 2019 15:11
--- NOTE | 2019-02-27 16:46 | Cardiology Progress Note ---
Cardiology SOAP Progress Note Subjective: No cardiac complaints. Objective: I&O/Vital Signs 02/27/19 02/27/19 02/27/19 02/27/19 06:40 08:00 08:15 11:20 Temp 36.9 36.6 Pulse 74 79 71 Resp 20 18 B/P (MAP) 117/50 (72) 119/68 Pulse Ox 96 98 O2 Delivery Room Air Room Air Room Air 02/27/19 02/27/19 02/27/19 02/27/19 11:30 12:00 12:15 12:37 Temp 36.6 36.6 Pulse 67 66 65 Resp 18 22 B/P (MAP) 130/71 139/79 (99) Pulse Ox 98 99 O2 Delivery Room Air Room Air Room Air 02/27/19 02/27/19 14:35 16:00 Temp 36.6 36.5 Pulse 74 71 Resp 19 B/P (MAP) 150/76 138/69 (92) Pulse Ox 98 O2 Delivery Room Air 02/27/19 00:00 Intake Total 1050 ml Output Total 550 ml Balance 500 ml Constitutional: appears stated age; No apparent distress; well-developed, well- nourished Respiratory: chest is bilaterally symmetric, lungs clear to auscultation Cardiovascular: regular rate-rhythm, S1 and S2 Gastrointestional: soft, audible bowel sounds; No spleenomegaly Extremities: normal range of motion; No clubbing, No cyanosis; no lower extremity edema bilateral; No significant edema Neurologic/Psychiatric: no motor/sensory deficits, alert, normal mood/affect, oriented x 3, power is 5/5 both on sides Skin: normal color; No rash, No ulcerations Results/Procedures: Labs Laboratory Tests 02/27/19 03:20: White Blood Count 8.1, Red Blood Count 2.39L, Hemoglobin 7.1L, Hematocrit 21L, Mean Corpuscular Volume 90, Mean Corpuscular Hemoglobin 30, Mean Corpuscular Hemoglobin Concent 33, Red Cell Distribution Width 14.2, Platelet Count 200, Mean Platelet Volume 10.2, Neutrophils (%) (Auto) 63, Lymphocytes (%) (Auto) 24, Monocytes (%) (Auto) 10, Eosinophils (%) (Auto) 3, Basophils (%) (Auto) 0, Neutrophils # (Auto) 5.1, Lymphocytes # (Auto) 1.9, Monocytes # (Auto) 0.8, Eosi nophils # (Auto) 0.2, Basophils # (Auto) 0.0, Sodium Level 130L, Potassium Level 3.9, Chloride Level 99, Carbon Dioxide Level 21, Anion Gap 10, Blood Urea Nitrogen 26H, Creatinine 1.32H, Estimat Glomerular Filtration Rate 39, BUN/Creatinine Ratio 20, Glucose Level 83, Calcium Level 8.7, Corrected Calcium 9.6, Total Bilirubin 0.4, Aspartate Amino Transf (AST/SGOT) 34, Alanine Aminotransferase (ALT/SGPT) 7, Alkaline Phosphatase 65, Total Protein 5.1L, Albumin 2.9L Microbiology 02/26/19 Blood Culture - Preliminary, Resulted No growth 02/26/19 Urine Culture - Final, Complete NO GROWTH 02/26/19 Influenza Types A,B Antigen (ANTHONY) - Final, Complete A/P: Assessment/Dx: Recent spine surgery, Paroxysmal atrial fibrillation, Chronic kidney disease, Anemia, Hyponatremia, Syncope. Plan: Recent spine surgery, DVT prophylaxis. Paroxysmal atrial fibrillation, not on oral anticoagulation due to recent spine surgery. Flecainide as an outpatient. Chronic kidney disease, defer to the primary team. Anemia, transfusion. Hyponatremia, unclear etiology. Syncope. Telemetry, echocardiogram. Telemetry shows no arrhythmias. Echocardiogram done 02/26/2019 shows hyperdynamic LV function with moderate diastolic dysfunction. Dehydration is likely. Generous IV fluid is recommended. Follow-up with Dr. Baltazar for cardiology after discharge. Thank you for your consultation. Please call me if you have any questions. Malcom Lynn MD, FACP, FACC, FSCAI, FHRS, CCDS Interventional Cardiology Cardiac Electrophysiology Vascular Medicine and Endovascular Interventions Focused Exam Lactate Level 02/26/19 14:05: Lactic Acid Level 0.87 Ludy LYNN MD Feb 27, 2019 16:46
[2019-02-27] MEDS: amLODIPine 5 MG (NORVASC) TAB PO SCH (20:25)
[2019-02-27] MEDS ORDERED: POLYETHYLENE GLYCOL 17 GM (MIRALAX) PACK PO SCH (21:00)
[2019-02-27] MEDS: ALPRAZolam 0.25 MG (XANAX) TAB PO PRN (22:42)
[2019-02-28] VITALS: BP 173/76
[2019-02-28] MEDS: HYDROcodone/APAP 5 MG/325 MG (LORTAB) TAB PO PRN ×3 (00:04→08:16)
[2019-02-28 04:00] VITALS: BP 190/78
[2019-02-28 04:09] LABS: BASOPHILS % (AUTO) 1 % (0-10); EOSINOPHILS # (AUTO) 0.3 10^3/uL (0.0-0.3); EOSINOPHILS % (AUTO) 4 % (0-10); HEMATOCRIT 28 % (35-52); HEMOGLOBIN 9.3 G/DL (11.5-16.0); LYMPHOCYTES # (AUTO) 1.7 X 10^3 (1.0-4.0); LYMPHOCYTES % (AUTO) 20 % (12-44); MEAN CORPUSCULAR HEMOGLOBIN 30 PG (25-34); MEAN CORPUSCULAR HGB CONC 34 G/DL (32-36); MEAN CORPUSCULAR VOLUME 89 FL (80-99); MEAN PLATELET VOLUME 9.4 FL (7.4-10.4); MONOCYTES % (AUTO) 11 % (0-12); NEUTROPHILS # (AUTO) 5.6 X 10^3 (1.8-7.8); NEUTROPHILS % (AUTO) 65 % (42-75); PLATELET COUNT 263 10^3/uL (130-400); RED CELL DISTRIBUTION WIDTH 14.2 % (10.0-14.5); WHITE BLOOD COUNT 8.6 10^3/uL (4.3-11.0)
[2019-02-28 04:32] LABS: ALBUMIN 3.3 GM/DL (3.2-4.5); BILIRUBIN,TOTAL 0.5 MG/DL (0.1-1.0); CALCIUM 9.6 MG/DL (8.5-10.1); CREATININE SERUM 1.26 MG/DL (0.60-1.30)
[2019-02-28 05:30] VITALS: BP 142/85
[2019-02-28 08:00] VITALS: BP 165/70
[2019-02-28] MEDS: SENNA W/DOCUSATE (SENOKOT S) TABLET PO SCH (08:07)
[2019-02-28] MEDS: ALLOPURINOL 100 MG (ZYLOPRIM) TAB PO SCH (08:16)
[2019-02-28] MEDS: DOCUSATE SODIUM 100 MG (COLACE) CAP PO SCH (08:17)
[2019-02-28] MEDS: FLECAINIDE 100 MG (TAMBOCOR) TAB PO SCH (08:17)
[2019-02-28] MEDS ORDERED: IRON SUCROSE 200 MG/10 ML (VENOFER) VIAL IV SCH (09:00)
--- NOTE | 2019-02-28 12:43 | Discharge Summary ---
Diagnosis/Chief Complaint Date of Admission Feb 26, 2019 at 13:25 Date of Discharge Feb 28, 2019 at 09:15 Discharge Date: Feb 28, 2019 Discharge Diagnosis Assessment: Syncope Orthostasis episodes in the past HTN labile levels Renal insufficiency improved 1.3 today after fluids Hyponatremia improved with fluid restriction and normal saline IV fluids 130 today Anemia s/p 1 unit of blood at [facility] and will receive 1 unit today since hemoglobin 7.1 and has cardiac risk factors Dehydration resolved with IV fluids we'll Hep-Lock fluids now Chronic AF Plan: Home meds except Plavix due to recent spine surgery SCD's Cardiology evaluation Fluid restriction NS IVF 90cc/hr will be hep-locked Venofer 1 unit of blood today with Lasix afterwards Inpatient rehabilitation tomorrow to continue recovery Discharge Summary Discharge Physical Examination Allergies: Coded Allergies: oxycodone (Verified Allergy, Unknown, Vomiting, 02/26/19) Vitals & I&Os Vital Signs Date Time Temp Pulse Resp B/P (MAP) Pulse Ox O2 Delivery O2 Flow Rate FiO2 02/28/19 08:00 Room Air 97 02/28/19 08:00 36.4 85 18 165/70 (101) 98 General Appearance: Alert, Oriented X3, Cooperative Respiratory: Clear to Auscultation, Normal Air Movement Neuro: Normal Gait, Normal Speech, Strength at 5/5 X4 Ext Psych/Mental Status: Mental Status NL, Mood NL Hospital Course Was the Problem List Reviewed?: Yes Hospital course: Patient had a brief hospital course she she was transferred to higher level care for cardiology evaluation to cardiac stepdown via [facility] from [facility] after an extensive lumbar spine surgery complicated with early ileus, syncopal episodes, severe acute blood loss anemia requiring transfusion, acute on chronic renal failure and overall decline status. She was given IV fluids echocardiogram was reviewed patient was given 1 unit of blood due to hemoglobin is 7.1 in addition to 1 dose of IV iron infusion and IV fluids helped the renal insufficiency to return back to near normal. Dyazide was held due to hyponatremia fluid restriction maintained for that and sodium level was 133 at time of discharge. Patient was deemed stable for inpatient rehabilitation transfer. Labs (last 24 hrs) Laboratory Tests 02/26/19 13:40: Urine Color YELLOW, Urine Clarity CLEAR, Urine pH 5.5, Urine Specific Crawford 1.020, Urine Protein NEGATIVE, Urine Glucose (UA) NEGATIVE, Urine Ketones NEGATIVE, Urine Nitrite NEGATIVE, Urine Bilirubin NEGATIVE, Urine Urobilinogen 0.2, Urine Leukocyte Esterase NEGATIVE, Urine RBC (Auto) NEGATIVE, Urine RBC NONE, Urine WBC NONE, Urine Squamous Epithelial Cells RARE, Urine Crystals PRESENTH, Urine Amorphous Sediment RARE TYSON URATESH, Urine Bacteria NEGATIVE, Urine Casts NONE, Urine Mucus SMALLH, Urine Culture Indicated NO 02/26/19 13:50: Blood Gas Puncture Site RR, Blood Gas Patient Temperature 36.7, Arterial Blood pH 7.45H, Arterial Blood Partial Pressure CO2 35, Arterial Blood Partial Pressure O2 82, Arterial Blood HCO3 24, Arterial Blood Total CO2 25.2, Arterial Blood Oxygen Saturation 98, Arterial Blood Base Excess 0.5, Eliceo Test YES-POS, Blood Gas Ventilator Setting NO, Blood Gas Inspired Oxygen RA 02/26/19 14:05: White Blood Count 10.2, Red Blood Count 2.62L, Hemoglobin 7.9L, Hematocrit 23L, Mean Corpuscular Volume 89, Mean Corpuscular Hemoglobin 30, Mean Corpuscular Hemoglobin Concent 34, Red Cell Distribution Width 14.1, Platelet Count 202, Mean Platelet Volume 10.1, Neutrophils (%) (Auto) 81H, Lymphocytes (%) (Auto) 9L , Monocytes (%) (Auto) 9, Eosinophils (%) (Auto) 0, Basophils (%) (Auto) 0, Neutrophils # (Auto) 8.3H, Lymphocytes # (Auto) 0.9L, Monocytes # (Auto) 0.9, Eosinophils # (Auto) 0.0, Basophils # (Auto) 0.0, Prothrombin Time 14.2, INR Comment 1.1, Activated Partial Thromboplast Time 105H, Sodium Level 128L, Potassium Level 4.5, Chloride Level 97L, Carbon Dioxide Level 23, Anion Gap 8, Blood Urea Nitrogen 27H, Creatinine 1.50H, Estimat Glomerular Filtration Rate 33, BUN/Creatinine Ratio 18, Glucose Level 109H, Lactic Acid Level 0.87, Calcium Level 9.0, Corrected Calcium 9.7, Iron Level 13L, Total Bilirubin 0.3, Aspartate Amino Transf (AST/SGOT) 42H, Alanine Aminotransferase (ALT/SGPT) 7, Alkaline Phosphatase 66, Troponin I < 0.028, B-Type Natriuretic Peptide 134.6H, Total Protein 5.7L, Albumin 3.1L 02/27/19 03:20: White Blood Count 8.1, Red Blood Count 2.39L, Hemoglobin 7.1L, Hematocrit 21L, Mean Corpuscular Volume 90, Mean Corpuscular Hemoglobin 30, Mean Corpuscular Hemoglobin Concent 33, Red Cell Distribution Width 14.2, Platelet Count 200, Mean Platelet Volume 10.2, Neutrophils (%) (Auto) 63, Lymphocytes (%) (Auto) 24, Monocytes (%) (Auto) 10, Eosinophils (%) (Auto) 3, Basophils (%) (Auto) 0, Neutrophils # (Auto) 5.1, Lymphocytes # (Auto) 1.9, Monocytes # (Auto) 0.8, Eosinophils # (Auto) 0.2, Basophils # (Auto) 0.0, Sodium Level 130L, Potassium Level 3.9, Chloride Level 99, Carbon Dioxide Level 21, Anion Gap 10, Blood Urea Nitrogen 26H, Creatinine 1.32H, Estimat Glomerular Filtration Rate 39, BUN/Creatinine Ratio 20, Glucose Level 83, Calcium Level 8.7, Corrected Calcium 9.6, Total Bilirubin 0.4, Aspartate Amino Transf (AST/SGOT) 34, Alanine Aminotransferase (ALT/SGPT) 7, Alkaline Phosphatase 65, Total Protein 5.1L, Albumin 2.9L 02/28/19 03:57: White Blood Count 8.6, Red Blood Count 3.11L, Hemoglobin 9.3#L, Hematocrit 28L, Mean Corpuscular Volume 89, Mean Corpuscular Hemoglobin 30, Mean Corpuscular Hemoglobin Concent 34, Red Cell Distribution Width 14.2, Platelet Count 263, Mean Platelet Volume 9.4, Neutrophils (%) (Auto) 65, Lymphocytes (%) (Auto) 20, Monocytes (%) (Auto) 11, Eosinophils (%) (Auto) 4, Basophils (%) (Auto) 1, Neutrophils # (Auto) 5.6, Lymphocytes # (Auto) 1.7, Monocytes # (Auto) 1.0, Eosinophils # (Auto) 0.3, Basophils # (Auto) 0.0, Sodium Level 133L, Potassium Level 4.0, Chloride Level 99, Carbon Dioxide Level 23, Anion Gap 11, Blood Urea Nitrogen 24H, Creatinine 1.26, Estimat Glomerular Filtration Rate 41, BUN/Creatinine Ratio 19, Glucose Level 94, Calcium Level 9.6, Corrected Calcium 10.2H, Total Bilirubin 0.5, Aspartate Amino Transf (AST/SGOT) 29, Alanine Aminotransferase (ALT/SGPT) 8, Alkaline Phosphatase 72, Total Protein 6.0L, Albumin 3.3 Microbiology 02/26/19 Blood Culture - Preliminary, Resulted No growth 02/26/19 Urine Culture - Final, Complete NO GROWTH 02/26/19 MRSA Screen - Final, Complete MRSA not isolated Pending Labs Microbiology Date/Time Source Procedure Growth Status 02/26/19 14:10 Peripheral Lt Hand Blood Culture - Preliminary No growth Resulted 02/26/19 14:05 Peripheral Lt Ac Blood Culture - Preliminary No growth Resulted 02/26/19 13:40 Urine Barcenas Cath Urine Culture - Final NO GROWTH Complete 02/26/19 13:40 Nasal MRSA Screen - Final MRSA not isolated Complete 02/26/19 13:40 Nasopharynx Influenza Types A,B Antigen (ANTHONY) - Final Complete Laboratory Tests 02/26/19 13:40: Urine Color YELLOW, Urine Clarity CLEAR, Urine pH 5.5, Urine Specific Crawford 1.020, Urine Protein NEGATIVE, Urine Glucose (UA) NEGATIVE, Urine Ketones NEGATIVE, Urine Nitrite NEGATIVE, Urine Bilirubin NEGATIVE, Urine Urobilinogen 0.2, Urine Leukocyte Esterase NEGATIVE, Urine RBC (Auto) NEGATIVE, Urine RBC NONE, Urine WBC NONE, Urine Squamous Epithelial Cells RARE, Urine Crystals PRESENT, Urine Amorphous Sediment RARE TYSON URATES, Urine Bacteria NEGATIVE, Urine Casts NONE, Urine Mucus SMALL, Urine Culture Indicated NO 02/26/19 13:50: Blood Gas Puncture Site RR, Blood Gas Patient Temperature 36.7, Arterial Blood pH 7.45, Arterial Blood Partial Pressure CO2 35, Arterial Blood Partial Pressure O2 82, Arterial Blood HCO3 24, Arterial Blood Total CO2 25.2, Arterial Blood Oxygen Saturation 98, Arterial Blood Base Excess 0.5, Eliceo Test YES-POS, Blood Gas Ventilator Setting NO, Blood Gas Inspired Oxygen RA 02/26/19 14:05: White Blood Count 10.2, Red Blood Count 2.62, Hemoglobin 7.9, Hematocrit 23, Mean Corpuscular Volume 89, Mean Corpuscular Hemoglobin 30, Mean Corpuscular Hemoglobin Concent 34, Red Cell Distribution Width 14.1, Platelet Count 202, Mean Platelet Volume 10.1, Neutrophils (%) (Auto) 81, Lymphocytes (%) (Auto) 9, Monocytes (%) (Auto) 9, Eosinophils (%) (Auto) 0, Basophils (%) (Auto) 0, Neutrophils # (Auto) 8.3, Lymphocytes # (Auto) 0.9, Monocytes # (Auto) 0.9, Eosinophils # (Auto) 0.0, Basophils # (Auto) 0.0, Prothrombin Time 14.2, INR Comment 1.1, Activated Partial Thromboplast Time 105, Sodium Level 128, Potassium Level 4.5, Chloride Level 97, Carbon Dioxide Level 23, Anion Gap 8, Blood Urea Nitrogen 27, Creatinine 1.50, Estimat Glomerular Filtration Rate 33, BUN/Creatinine Ratio 18, Glucose Level 109, Lactic Acid Level 0.87, Calcium Level 9.0, Corrected Calcium 9.7, Iron Level 13, Total Bilirubin 0.3, Aspartate Amino Transf (AST/SGOT) 42, Alanine Aminotransferase (ALT/SGPT) 7, Alkaline Phosphatase 66, Troponin I < 0.028, B-Type Natriuretic Peptide 134.6, Total Protein 5.7, Albumin 3.1 02/27/19 03:20: White Blood Count 8.1, Red Blood Count 2.39, Hemoglobin 7.1, Hematocrit 21, Mean Corpuscular Volume 90, Mean Corpuscular Hemoglobin 30, Mean Corpuscular Hemoglobin Concent 33, Red Cell Distribution Width 14.2, Platelet Count 200, Mean Platelet Volume 10.2, Neutrophils (%) (Auto) 63, Lymphocytes (%) (Auto) 24, Monocytes (%) (Auto) 10, Eosinophils (%) (Auto) 3, Basophils (%) (Auto) 0, Neutrophils # (Auto) 5.1, Lymphocytes # (Auto) 1.9, Monocytes # (Auto) 0.8, Eosinophils # (Auto) 0.2, Basophils # (Auto) 0.0, Sodium Level 130, Potassium Level 3.9, Chloride Level 99, Carbon Dioxide Level 21, Anion Gap 10, Blood Urea Nitrogen 26, Creatinine 1.32, Estimat Glomerular Filtration Rate 39, BUN/Creatinine Ratio 20, Glucose Level 83, Calcium Level 8.7, Corrected Calcium 9.6, Total Bilirubin 0.4, Aspartate Amino Transf (AST/SGOT) 34, Alanine Aminotransferase (ALT/SGPT) 7, Alkaline Phosphatase 65, Total Protein 5.1, Albumin 2.9 02/28/19 03:57: White Blood Count 8.6, Red Blood Count 3.11, Hemoglobin 9.3, Hematocrit 28, Mean Corpuscular Volume 89, Mean Corpuscular Hemoglobin 30, Mean Corpuscular Hemogl obin Concent 34, Red Cell Distribution Width 14.2, Platelet Count 263, Mean Platelet Volume 9.4, Neutrophils (%) (Auto) 65, Lymphocytes (%) (Auto) 20, Monocytes (%) (Auto) 11, Eosinophils (%) (Auto) 4, Basophils (%) (Auto) 1, Neutrophils # (Auto) 5.6, Lymphocytes # (Auto) 1.7, Monocytes # (Auto) 1.0, Eosinophils # (Auto) 0.3, Basophils # (Auto) 0.0, Sodium Level 133, Potassium Level 4.0, Chloride Level 99, Carbon Dioxide Level 23, Anion Gap 11, Blood Urea Nitrogen 24, Creatinine 1.26, Estimat Glomerular Filtration Rate 41, BUN/Creatinine Ratio 19, Glucose Level 94, Calcium Level 9.6, Corrected Calcium 10.2, Total Bilirubin 0.5, Aspartate Amino Transf (AST/SGOT) 29, Alanine Aminotransferase (ALT/SGPT) 8, Alkaline Phosphatase 72, Total Protein 6.0, Albumin 3.3 Discharge Home Medications: Active Scripts Active Reported Hydrocodone-Acetamin 5-325 mg (Hydrocodone/Acetaminophen) 1 Each Tablet 1 Tab PO Q4H PRN Alprazolam 0.25 Mg Tablet 0.125-0.25 Mg PO DAILY PRN TAKES 1/2 TO 1 (0.25MG) TABLET Allopurinol 100 Mg Tablet 100 Mg PO DAILY LAST FILLED #90 11-05-18 Amlodipine Besylate 5 Mg Tablet 5 Mg PO HS Flecainide Acetate 150 Mg Tablet 150 Mg PO BID Instructions to patient/family Please see electronic discharge instructions given to patient. Diagnosis/Problems Diagnosis/Problems (1) Syncope (2) Orthostasis (3) Hypertension (4) Status post lumbar spine surgery for decompression of spinal cord (5) Hyponatremia (6) Anemia (7) Iron deficiency (8) Renal insufficiency (9) Anxiety (10) Transfusion of blood during current hospitalisation (11) Constipation Clinical Quality Measures DVT/VTE Risk/Contraindication: Risk Factor Score Per Nursin RFS Level Per Nursing on Admit: 4+=Very High Contraindications-Pharm: Other *list below* Other: Recent spine surgery high risk for spinal hematoma and paralysis PIERCE JAMES DO Feb 28, 2019 12:43
--- NOTE | 2019-02-28 14:13 | Cardiology Progress Note ---
Cardiology SOAP Progress Note Subjective: Complains of back pain. Objective: I&O/Vital Signs 02/28/19 02/28/19 02/28/19 02/28/19 04:00 04:00 05:30 07:00 Temp 36.1 Pulse 88 88 Resp 18 B/P (MAP) 190/78 (115) 142/85 (104) Pulse Ox 94 O2 Delivery Room Air Room Air FiO2 97 02/28/19 02/28/19 08:00 08:00 Temp 36.4 Pulse 85 Resp 18 B/P (MAP) 165/70 (101) Pulse Ox 98 O2 Delivery Room Air Room Air FiO2 97 02/28/19 00:00 Intake Total 1250 ml Output Total 1350 ml Balance -100 ml Constitutional: appears stated age; No apparent distress; well-developed, well- nourished Respiratory: chest is bilaterally symmetric, lungs clear to auscultation Cardiovascular: regular rate-rhythm, S1 and S2 Gastrointestional: soft, audible bowel sounds; No spleenomegaly Extremities: normal range of motion; No clubbing, No cyanosis; no lower extremity edema bilateral; No significant edema Neurologic/Psychiatric: no motor/sensory deficits, alert, normal mood/affect, oriented x 3, power is 5/5 both on sides Skin: normal color; No rash, No ulcerations Results/Procedures: Labs Laboratory Tests 02/28/19 03:57: White Blood Count 8.6, Red Blood Count 3.11L, Hemoglobin 9.3#L, Hematocrit 28L, Mean Corpuscular Volume 89, Mean Corpuscular Hemoglobin 30, Mean Corpuscular He moglobin Concent 34, Red Cell Distribution Width 14.2, Platelet Count 263, Mean Platelet Volume 9.4, Neutrophils (%) (Auto) 65, Lymphocytes (%) (Auto) 20, Monocytes (%) (Auto) 11, Eosinophils (%) (Auto) 4, Basophils (%) (Auto) 1, Neutrophils # (Auto) 5.6, Lymphocytes # (Auto) 1.7, Monocytes # (Auto) 1.0, Eosinophils # (Auto) 0.3, Basophils # (Auto) 0.0, Sodium Level 133L, Potassium Level 4.0, Chloride Level 99, Carbon Dioxide Level 23, Anion Gap 11, Blood Urea Nitrogen 24H, Creatinine 1.26, Estimat Glomerular Filtration Rate 41, BUN/Creatinine Ratio 19, Glucose Level 94, Calcium Level 9.6, Corrected Calcium 10.2H, Total Bilirubin 0.5, Aspartate Amino Transf (AST/SGOT) 29, Alanine Aminotransferase (ALT/SGPT) 8, Alkaline Phosphatase 72, Total Protein 6.0L, Albumin 3.3 Microbiology 02/26/19 Blood Culture - Preliminary, Resulted No growth 02/26/19 Urine Culture - Final, Complete NO GROWTH 02/26/19 MRSA Screen - Final, Complete MRSA not isolated A/P: Assessment/Dx: Recent spine surgery, Paroxysmal atrial fibrillation, Chronic kidney disease, Anemia, Hyponatremia, Syncope. Plan: Recent spine surgery, DVT prophylaxis. Paroxysmal atrial fibrillation, not on oral anticoagulation due to recent spine surgery. Flecainide as an outpatient. Chronic kidney disease, defer to the primary team. Anemia, transfusion. Hyponatremia, unclear etiology. Syncope. Telemetry, echocardiogram. Telemetry shows no arrhythmias. Echocardiogram done 02/26/2019 shows hyperdynamic LV function with moderate diastolic dysfunction. Dehydration is likely. Generous IV fluid is recommended. Follow-up with Dr. Baltazar for cardiology after discharge. Thank you for your consultation. Please call me if you have any questions. Malcom Lynn MD, FACP, FACC, FSCAI, FHRS, CCDS Interventional Cardiology Cardiac Electrophysiology Vascular Medicine and Endovascular Interventions Focused Exam Lactate Level 02/26/19 14:05: Lactic Acid Level 0.87 Ludy LYNN MD Feb 28, 2019 14:13
== END 2019-02-28 09:15 | DRG 812 ==
LOC: CSD 13:25
PROVIDERS: ADMIT Internal Medicine; ATTEND Internal Medicine
DX: D64.9 Anemia, unspecified (principal); Z68.41 Body mass index [BMI] 40.0-44.9, adult; E87.1 Hypo-osmolality and hyponatremia; I48.20 Chronic atrial fibrillation, unspecified; N28.9 Disorder of kidney and ureter, unspecified; I48.0 Paroxysmal atrial fibrillation; M10.9 Gout, unspecified; I12.9 Hypertensive chronic kidney disease with stage 1 through stage 4 chronic kidney disease, or unspecified chronic kidney disease; N18.9 Chronic kidney disease, unspecified; E78.00 Pure hypercholesterolemia, unspecified; M81.0 Age-related osteoporosis without current pathological fracture; M19.90 Unspecified osteoarthritis, unspecified site; M54.9 Dorsalgia, unspecified; G89.29 Other chronic pain; F41.9 Anxiety disorder, unspecified; E66.9 Obesity, unspecified; E86.0 Dehydration; Z87.891 Personal history of nicotine dependence
CPT/HCPCS: 36415; 36600; 70450; 71045; 80053; 81000; 82805; 83540; 83605; 83880; 84484; 85025; 85610; 85730; 86850; 86900; 86901; 86920; 87040; 87081; 87088; 87804; 93306; 94760

== ENCOUNTER 2019-02-28 09:15 | Inpatient (IN) | payer MEDICARE, OTHER ==
[~2019-02-28] VITALS: Ht 157.5 cm; Wt 92.9 kg
[2019-02-28] MEDS: POLYETHYLENE GLYCOL 17 GM (MIRALAX) PACK PO SCH ×2 (09:00→20:44)
[2019-02-28] MEDS: DOCUSATE SODIUM 100 MG (COLACE) CAP PO SCH ×2 (09:00→20:38)
[2019-02-28] MEDS: SENNA W/DOCUSATE (SENOKOT S) TABLET PO SCH ×2 (09:00→20:44)
[2019-02-28 09:15] VITALS: BP 164/84
[~2019-02-28 09:15] MED LIST: ALLO100T PO; ALPR0.254 PO; AMLO5TAB9 PO; BIOT50002 SL; CALCIUM CARBONATE 500 MG (TUMS) TAB.CHEW PO PRN; CHOL200025 PO; CLOP75TA28 PO; DOCUSATE SODIUM 100 MG (COLACE) CAP PO PRN; FLEC150T15 PO; FLEET ENEMA ADULT 1 EA BTL PR PRN; HYDR-3812 PO; LACTULOSE SYRUP 10GM/15ML (ENULOSE) 30ML UDC PO PRN; LOPERAMIDE 2 MG (IMODIUM) TABLET PO PRN; LOSA100T57 PO; MELATONIN 3 MG TABLET PO PRN; MULT1TAB69 PO; ONDANSETRON 4 MG (ZOFRAN) ORAL DISSOLVE TAB PO PRN; ONDANSETRON 4 MG/2 ML (SDV) Z0FRAN IV PRN; TRIA1TAB3 PO; diphenhydrAMINE 25 MG TAB (BENADRYL) PO PRN; guaiFENesin/CODEINE (ROBITUSSIN AC) 10ML UDC PO PRN
--- NOTE | 2019-02-28 09:15 | NUR ---
f pt name] admitted to room 224-1, with an admitting diagnosis of LUMBAR SPINAL STENOSIS, on 02/28/19 from [facility] [place] [facility] via WHEELCHAIR, accompanied by DAUGHTER AND STAFF.ESMER FLETCHER introduced to surroundings, call light, bed controls, phone, TV, temperature control, lights, meal times, smoking policy, visitor policy, side rail policy, bathrooms and showers. Patient Rights given to patient in the handbook.ESMER FLETCHER verbalizes understanding that [facility] is not responsible for the loss or damage to any personal effects or valuables that are kept in the patients posession during their hospitalization. The following Patient Care Plans were discussed with the PT: Discharge Planning, IMPAIRED MOBILITY AND LAMINECTOMY. ESMER FLETCHER verbalizes understanding of Interdisciplinary Patient Education. Patient received Patient Rights Booklet, which includes Privacy Act Statement and Data Collection Information Summary. RATES BACK PAIN A "8" PRESENTLY, RECENTLY MEDICATED WITH HYDROCODONE. Addendum: 02/28/19 at 1532 by HEIDE PARKS RN ESMER FLETCHER ADMITTED TO ROOM 224.
--- NOTE | 2019-02-28 10:05 | Physical Therapy Evaluation ---
PT Evaluation-General Medical Diagnosis Admission Date Feb 28, 2019 at 09:15 Medical Diagnosis: syncope, weakness, s/p lumbar fusion Onset Date: Feb 26, 2019 Therapy Diagnosis Therapy Diagnosis: weakness, decreased functional mobility Precautions Precautions/Isolations: Fall Prevention, Standard Precautions Weight Bear Status Right Lower Extremity: Right Full Weight Bearing Left Lower Extremity: Left Full Weight Bearing Referral Physician: Andie Reason for Referral: Evaluation/Treatment Medical History Pertinent Medical History: Atrial Fib, Arthritis, HTN Additional Medical History chronic LBP, gout, osteoporosis, (B) TKR, spinal fusion (12 years ago) Current History Pt has long history of LBP with lumbar fusion 12 years ago. Steadily increasing pain, within the last month, significant increase in pain with additional radicular symptoms in (R) LE as well as (L). On 02/22/19 underwent surgery for hardware removal and fusion at L2-4. Admitted due to syncopal episode and severe pain post-op. Pt and daughter do report that Pt experienced syncopal episodes at PLOF, "Usually in the mornings but she can tell they are coming on and sit down" Reviewed History: Yes Social History Home: Single Level Current Living Status: Alone Entry Into Home: Stairs With Railing PT Steps Into Home: 2 Prior Prior Level of Function SCALE: Activities may be completed with or without assistive devices. 7-Kjotpodqei-eemajcz completes the activity by him/herself with no assistance from a helper. 5-Set-up or Clean-up Assistance-helper sets up or cleans up; patient completes activity. Harvey assists only prior to or following the activity. 4-Supervision or Touching Assistance-helper provides verbal cues and/or touching/steadying and/or contact guard assistance as patient completes activit y. Assistance may be provided throughout the activity or intermittently. 3-Partial/Moderate Assistance-helper does LESS THAN HALF the effort. Harvey lifts, holds or supports trunk or limbs, but provides less than half the effort. 2-Substantial/Maximal Assistance-helper does MORE THAN HALF the effort. Harvey lifts or holds trunk or limbs and provides more than half the effort. 5-Fbmbykboe-pasqjw does ALL the effort. Patient does none of the effort to complete the activity. Or, the assistance of 2 or more helpers is required for the patient to complete the activity. If activity was not attempted, code reason: 7-Patient Refused. 9-Not Applicable-not attempted and the patient did not perform the activity before the current illness, exacerbation or injury. 10-Not Attempted due to Environmental Limitations-(lack of equipment, weather restraints, etc.). 88-Not Attempted due to Medical Conditions or Safety Concerns. Bed Mobility: 6 Transfers (B,C,W/C): 6 Gait: 6 Stairs: 6 Wheelchair Mobility: 9 Indoor Mobility (Ambulation): Independent Stairs: Independent Prior Devices Use: Walker, Other-see list below Prior Device Use: Pt reports prior to the last month she was using SPC when outside. Over the last month, Pt has been performing very limited mobility with FWW. PT Evaluation-Current Subjective Pt agreeable, anxious to begin rehab to discharge home. Reports pain at 8/10 in (B) hips and anterior thighs to knees. Pain Numeric Pain Scale: 8 Location: Right, Left Location Body Site: Thigh Pain Description: Ache Pt/Family Goals Home to daughter's Objective Patient Orientation: Person, Place, Time, Situation Attachments: SCD's ROM/Strength ROM Upper Extremities See OT ROM Lower Extremities Grossly WFL for mobility Strength Upper Extremities See OT Strength Lower Extremities No resistance given due to recent surgery. (R) hip flexion grossly 2+/5, (R) knee extension: 3-/5, (R) ankle DF: grossly 3+/5 (L) hip flexion grossly 3/5, (L) knee extension: 3/5, (L) ankle DF: grossly 3+/5 Integumentary/Posture Integumentary See nurses' notes Posture Kyphotic Sensory Vision: Functional Hearing: Functional Transfers Roll Left to Right (QC): 3 Sit to Lying (QC): 3 Lying to Sitting/Side of Bed(Q: 3 Sit to Stand (QC): 4 Chair/Hwq-ce-Btswa Xfer(QC): 4 Toilet Transfer: 2 Car Transfer (QC): 2 Gait Does the Patient Walk?: Yes Mode of Locomotion: Walk Anticipated Mode of Locomotion: Walk Walk 10 feet (QC): 4 Walk 50 ft with 2 Turns(QC): 4 Walk 150 ft (QC): 4 Walking 10ft/uneven surface-QC: 3 Distance: 150 Gait Assistive Device: FWW Comments/Gait Description Slow but safe gait with FWW. Wheelchair Training Does the Pt Use a Wheelchair?: No Stairs #of Steps: 1 1 Step (curb) (QC): 3 4 Steps (QC): 88 12 Steps (QC): 88 Walking Assistive Device: Walker Pt agreeable to attempt curb step this date. Pt declined to attempt 4-12 steps due to 8/10 back and LE pain. Weakness (B) LE with curb step Balance Sitting Static: Good Sitting Dynamic: Good Standing Static: Good Standing Dynamic: Fair Picking up an Object (QC): 88 Treatment Eval. Transfer training with education on back precautions, log-rolling. In bed with all needs met. Assessment/Needs Pt would benefit from skilled PT to improve (I) with functional mobility to allow safe return home with family assist with decreased caregiver burden. Rehab Potential: Good PT Short Term Goals Short Term Goals Time Frame: Mar 07, 2019 Roll Left & Right: 6 Sit to lyin Lying to sitting on side of be: 6 Sit to stand: 6 PT Manager Biostatistics Goals Manager Biostatistics Goals PT Manager Biostatistics Goals Time Frame: Mar 14, 2019 Roll Left & Right (QC): 6 Sit to Lying (QC): 6 Lying-Sitting on Side/Bed(QC): 6 Sit to Stand (QC): 6 Chair/Zlq-al-Htuub Xfer(QC): 6 Toilet Transfer (QC): 6 Car Transfer (QC): 6 Does the Patient Walk: Yes Walk 10 feet (QC): 6 Walk 50ft with 2 Turns (QC): 6 Walk 150 ft (QC): 6 Walking 10ft on Uneven Surface: 6 1 Step (curb) (QC): 6 4 Steps (QC): 4 12 Steps (QC): 4 Picking up an Object (QC): 88 Does the Pt use WC or Scooter?: No Wheel 50 feet with 2 turns (QC: 9 Wheel 150 feet: 9 PT LTGs established to allow safe return home. PT Plan Problem List Problem List: Activity Tolerance, Functional Strength, Safety, Balance, Gait, Transfer, Bed Mobility Treatment/Plan Treatment Plan: Continue Plan of Care Treatment Plan: Bed Mobility, Education, Functional Activity Dirk, Functional Strength, Group Therapy, Gait, Safety, Therapeutic Exercise, Transfers Treatment Duration: Mar 14, 2019 Frequency: Modified Program (IRF) Estimated Hrs Per Day: 1.5 hours per day Patient and/or Family Agrees t: Yes Safety Risks/Education Patient Education: Transfer Techniques, Reviewed Precautions Teaching Recipient: Patient Teaching Methods: Demonstration, Discussion Response to Teaching: Verbalize Understanding, Reinforcement Needed Discharge Recommendations Therapy Discharge Recommendati: Home & Family Barriers to Progress Pain, syncopal episodes Time/GCodes Time In: 0915 Time Out: 1000 Total Billed Treatment Time: 45 Total Billed Treatment 1, EVMODC x 30', FA x 15' REBA ZAZUETA DPT Feb 28, 2019 10:05
--- NOTE | 2019-02-28 12:11 | Occupational Therapy Eval ---
OT Evaluation-General/PLF Medical Diagnosis Admission Date Feb 28, 2019 at 09:15 Medical Diagnosis: syncope, weakness, s/p lumbar fusion Onset Date: Feb 26, 2019 Therapy Diagnosis Therapy Diagnosis: Decreased ADL abilities Precautions Precautions/Isolations: Fall Prevention, Standard Precautions Weight Bear Status Weight Bearing Restriction: Weight Bearing/Tolerated back brace when up. spinal precautions. Referral Physician: Andie Referral Reason: Activity Tolerance, Self Care, Evaluation/Treatment, Strengthening/ROM Medical History Pertinent Medical History: Atrial Fib, Arthritis, HTN Additional Medical History a fib, arthritis, HRN, OA, BTKR spinal fusion, chronic LBP Current History syncope, weakness, s/p lumbar fusion Reviewed History: Yes Social History Home: Single Level Current Living Status: Alone Entry Into Home: Stairs With Railing Steps Into Home: 2 ADL-Prior Level of Function SCALE: Activities may be completed with or without assistive devices. 4-Nklmplmpzl-lguulrg completes the activity by him/herself with no assistance from a helper. 5-Set-up or Clean-up Assistance-helper sets up or cleans up; patient completes activity. [place] assists only prior to or following the activity. 4-Supervision or Touching Assistance-helper provides verbal cues and/or touching/steadying and/or contact guard assistance as patient completes activity. Assistance may be provided throughout the activity or intermittently. 3-Partial/Moderate Assistance-helper does LESS THAN HALF the effort. [place] lifts, holds or supports trunk or limbs, but provides less than half the effort. 2-Substantial/Maximal Assistance-helper does MORE THAN HALF the effort. [place] lifts or holds trunk or limbs and provides more than half the effort. 7-Dnbjnyylb-nplfnb does ALL the effort. Patient does none of the effort to complete the activity. Or, the assistance of 2 or more helpers is required for the patient to complete the activity. If activity was not attempted, code reason: 7-Patient Refused. 9-Not Applicable-not attempted and the patient did not perform the activity before the current illness, exacerbation or injury. 10-Not Attempted due to Environmental Limitations-(lack of equipment, weather restraints, etc.). 88-Not Attempted due to Medical Conditions or Safety Concerns. ADL PLOF Comments Pt was IND within ADLs with use of SPC and FWW Self Care: Independent Functional Cognition: Independent Occupation: retired Drive Self: Yes OT Current Status Subjective Pt seen in bed, supine. Pt states moderate pain in B hips, "nerve pain." Pt states pain hasn't gotten worse or better since surgery. Pt agreeable to OT eval/ treat. Mental Status/Objective Patient Orientation: Person, Place, Situation, Normal For Age Current Glasses/Contacts: Yes Hearing Aids: No Dentures/Partials: No Hand Dominance: Right Upper Extremity ROM WFL BUE Upper Extremity Coordination WFL BUE Upper Extremity Sensation WFL Upper Extremity Strength DNT per precautions ADL-Treatment Eating (QC): 6 Oral Hygiene (QC): 5 Shower/Bathe Self (QC): 3 (assist with back, bottom, LE's) Upper Body Dressing (QC): 3 (s/u shirtmax A back brace) Lower Body Dressing (QC): 3 (assist with threading BLE, education of AE) On/Off Footwear (QC): 1 Toileting Hygiene (QC): 3 Other Treatments Pt agreeable to OT eval. States 3 falls in past year due to medications decreasing leg sensation/ strength. Pt and daughter suggest cleaning up, bed mob with increased time and mod A to EOB. Completes oral hygiene in bed. Completes LB washing and states need for bathroom. Pt sit to stand with back brace. Commode placed on toilet, completes toilet transfer with CGA, toilet hygiene with mod A. Completes UB dress in chair. Education of all AE to be utilized next tx session. Pt left in chair with call light in reach, all needs met. Pt good historian and safety awareness. Education OT Patient Education: Correct positioning, Modified ADL techniques, Purpose of tx/functional activities, Rehab process, Safety issues, Transfer techniques, Use of adapted equipment Teaching Recipient: Patient Teaching Methods: Demonstration, Discussion Response to Teaching: Verbalize Understanding, Return Demonstration OT Half-Way Goals Half-Way Goals Time Frame: Mar 14, 2019 Eating (QC): 6 Oral Hygiene (QC): 6 Toileting Hygiene (QC): 6 Shower/Bathe Self (QC): 6 Upper Body Dressing (QC): 6 Lower Body Dressing (QC): 6 On/Off Footwear (QC): 6 Additional Goals: 1-Demonstrate ADL Tasks, 2-Verbalize Understanding, 3- ImproveStrength/Dirk 1=Demonstrate adherence to instructed precautions during ADL tasks. 2=Patient will verbalize/demonstrate understanding of assistive devices/modifications for ADL. 3=Patient will improve strength/tolerance for activity to enable patient to perform ADL's. OT Education/Plan Problem List/Assessment Assessment: Decreased Activ Tolerance, Decreased UE Strength, Dependent Trans fers, Impaired Bed Mobility, Impaired Funct Balance, Impaired I ADL's, Impaired Self-Care Skills Discharge Recommendations Plan/Recommendations: Continue POC Equpiment Recommendations-D/C: Rails on Tub/Shower, Hip Kit Treatment Plan/Plan of Care Treatment,Training & Education: Yes Patient would benefit from OT for education, treatment and training to promote independence in ADL's, mobility, safety and/or upper extremity function for ADL's. Plan of Care: ADL Retraining, Caregiver Training, Functional Mobility, Group Exercise/Act as Ind, UE Funct Exercise/Act Treatment Duration: Mar 14, 2019 Frequency: At least 5 of 7 days/Wk (IRF) Estimated Hrs Per Day: 1.5 hours per day Agreement: Yes Rehab Potential: Good Time/GCodes Start Time: 11:20 Stop Time: 11:55 Total Time Billed (hr/min): 35 Billed Treatment Time 1, EVM (10), ADL 2 (25) DEBBIE JONES OTR Feb 28, 2019 12:11
[2019-02-28] MEDS ORDERED: RT-ALBUTEROL SULF 2.5 MG/3 ML PRE-MIX VIAL INH PRN (12:30)
[2019-02-28] MEDS ORDERED: LOPERAMIDE 2 MG (IMODIUM) TABLET PO PRN (12:30)
[2019-02-28] MEDS ORDERED: diphenhydrAMINE 25 MG TAB (BENADRYL) PO PRN (12:30)
[2019-02-28] MEDS ORDERED: CALCIUM CARBONATE 500 MG (TUMS) TAB.CHEW PO PRN (12:30)
[2019-02-28] MEDS ORDERED: MELATONIN 3 MG TABLET PO PRN (12:30)
[2019-02-28] MEDS ORDERED: BISACODYL 10 MG SUPP (DULCOLAX) PR PRN (12:30)
[2019-02-28] MEDS ORDERED: ALPRAZolam 0.25 MG (XANAX) TAB PO PRN (12:30)
[2019-02-28] MEDS ORDERED: ACETAMINOPHEN 500 MG TAB (TYLENOL) PO PRN (12:30)
[2019-02-28] MEDS ORDERED: HYDROcodone/APAP 5 MG/325 MG (LORTAB) TAB PO ONE (12:30)
--- NOTE | 2019-02-28 12:47 | PM&R Post Admission Assessment ---
PM&R HP Date of Visit: Feb 28, 2019 Time of Visit: 13:00 History of Present Illness CC: Lumbar spine decompression with severe debility History of present illness: This is a 79-year-old white female patient of Dr. Peraza and Dr. 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 Delong on 02/23/19 complicated afterwards with severe hyponatremia, acute on chronic renal failure, severe anemia from acute blood loss anemia requiring 1 unit of blood given at [facility] and early ileus with orthostatic hypotension with syncopal episodes. She required a medical evaluation by cardiology at higher level of care so she was transferred overstated directly to inpatient rehabilitation which was originally planned. She is placed on telemetry and echocardiogram was obtained cardiology evaluated her to have had a syncopal episode due to dehydration and volume depletion patient was given IV fluids which resulted in an improvement in renal failure and overall status. She did require 1 unit of blood due to hemoglobin is 7.1 and considering cardiac risk factors she required the blood since it was less than 8.0 hemoglobin. Severe hyponatremia required fluid restriction of 1000 mL of normal saline IV fluids wh ich improved enough considering we discontinued the Dyazide which is helped a tremendous amount. Constipation will be addressed her last bowel movement was 02/24/19 and patient will be monitor closely while providing pain medication and try to regain enough ability to return home to live independently. 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) Alcohol Use: Denies Use Smoking Status: Never a Smoker Former Smoker, Quit: Mar 04, 1986 Type Used: Cigarettes Recent Foreign Travel: No Contact w/other who traveled: No Recent Hopitalizations: Yes Recent Infectious Disease Expo: No Immunizations Up To Date Date of Influenza Vaccine: Jan 02, 2019 Seasonal Allergies Seasonal Allergies: Yes Past Medical History Surgeries: Orthopedic Cardiac: Atrial Fibrillation, High Cholesterol, Hypertension, Hypotension Neurological: Vertigo Gastrointestinal: Chronic Constipation Musculoskeletal: Osteoporosis, Arthritis, Chronic Back Pain, Gout Psychosocial: Anxiety History of Blood Disorders: No Family History Patient reports no known family medical history. Prior Level of Function Bed Mobility: 6 Transfers: 6 Gait: 6 Stairs: 6 Wheelchair Mobility: 9 Indoor Mobility (Ambulation): Independent Stairs: Independent Prior Devices Use: Walker, Other-see list below Pt reports prior to the last month she was using SPC when outside. Self Care: Independent Functional Cognition: Independent Occupation: retired Drive Self: Yes Current Level of Fuctioning Roll Left to Right: 3 Sit to Lyin Lying to Sitting/Side of Bed: 3 Sit to Stand: 4 Chair/Omg-wj-Phxkz Xfer: 4 Car Transfer: 2 Does the Patient Walk: Yes Mode of Locomotion: Walk Anticipated Mode of Locomotion: Walk Walk 10 feet: 4 Walk 50 ft with 2 Turns: 4 Walk 150 ft: 4 Walking 10ft on uneven surface: 3 Gait Assistive Device: FWW Does the Pt Use a Wheelchair: No #of Steps: 1 1 Step (curb): 3 4 Steps: 88 Walking Assistive Device: Walker 12 Steps: 88 Picking up an Object: 88 Eatin Oral Hygiene: 5 Shower/Bathe Self: 3 (assist with back, bottom, LE's) Upper Body Dressin (s/u shirtmax A back brace) Lower Body Dressin (assist with threading BLE, education of AE) On/Off Footwear: 1 Toileting Hygiene: 3 PM&R Allergy/Meds/Data Review Allergies Coded Allergies: oxycodone (Verified Allergy, Unknown, Vomiting, 02/26/19) Home Medications Scheduled Allopurinol (Allopurinol), 100 MG PO DAILY, (Reported) Amlodipine Besylate (Amlodipine Besylate), 5 MG PO HS, (Reported) Flecainide Acetate (Flecainide Acetate), 150 MG PO BID, (Reported) Scheduled PRN Alprazolam (Alprazolam), 0.125-0.25 MG PO DAILY PRN for ANXIETY, (Reported) Hydrocodone/Acetaminophen (Hydrocodone-Acetamin 5-325 mg), 1 TAB PO Q4H PRN for PAIN-MODERATE (5-7), (Reported) Discontinued Medications Biotin (Biotin), 5,000 MCG SL HS, (Reported) Cholecalciferol (Vitamin D3) (Vitamin D3), 2,000 UNIT PO DAILY, (Reported) Clopidogrel Bisulfate (Clopidogrel), 75 MG PO DAILY, (Reported) Losartan Potassium (Losartan Potassium), 100 MG PO DAILY, (Reported) Multivitamin (Multivitamins), 1 TAB PO DAILY, (Reported) Triamterene/Hydrochlorothiazid (Triamterene-Hctz 37.5-25 mg Tb), 1 TAB PO DAILY, (Reported) Current Medications Current Medications Reviewed Review of Systems Constitutional: see HPI, dizziness, malaise, weakness EENTM: no symptoms reported Respiratory: no symptoms reported Cardiovascular: no symptoms reported Gastrointestinal: constipation Genitourinary: frequency Musculoskeletal: back pain, joint pain Skin: no symptoms reported Psychiatric/Neurological: Anxiety All Other Systems Reviewed Negative Unless Noted: Yes Physical Exam Physical Exam Vital Signs Vital Signs - First Documented 02/28/19 09:15 Temp 36.8 Pulse 80 Resp 20 B/P (MAP) 164/84 (110) Pulse Ox 97 O2 Delivery Room Air Capillary Refill : Height, Weight, BMI Height: '" Weight: lbs. oz. kg; 37.73 BMI Method: General Appearance: No Apparent Distress, WD/WN, Chronically ill, Obese Eyes: Bilateral Eye Normal Inspection, Bilateral Eye PERRL HEENT: PERRL/EOMI, Normal ENT Inspection, Pharynx Normal Neck: Full Range of Motion, Normal Inspection, Non Tender, Supple, Carotid Bruit Respiratory: Chest Non Tender, Lungs Clear, Normal Breath Sounds, No Accessory Muscle Use, No Respiratory Distress Cardiovascular: Regular Rate, Rhythm, No Edema, No Gallop, No JVD, No Murmur, Normal Peripheral Pulses Gastrointestinal: Normal Bowel Sounds, No Organomegaly, No Pulsatile Mass, Non Tender, Soft Back: Decreased Range of Motion Extremity: Normal Capillary Refill, Normal Inspection, Normal Range of Motion (limited from back pain), Non Tender, No Calf Tenderness, No Pedal Edema Neurologic/Psychiatric: Alert, Oriented x3, No Motor/Sensory Deficits, instructional material director II- XII Norm as Tested, Depressed Affect, Motor Weakness (motor weakness of lower legs from spinal surgery /) Skin: Normal Color, Warm/Dry Lymphatic: No Adenopathy PM&R Medical Assessment & Plan REHAB/MEDICAL ASSESSMENT AND PLAN: REHAB IMPAIRMENT GROUP: Lumbar spinal decompression ETIOLOGIC DIAGNOSIS: Lumbar spinal decompression The comorbidities that impact the patients function and/or functional outcome by: Severe hyponatremia, chronic orthostasis, acute on chronic renal failure, hypertension labile REHAB PLAN: The patient is being admitted to our comprehensive inpatient rehabilitation facility and can tolerate the intensity of service consisting of at least: 180 minutes of therapy a day, 5 out of 7 days a week Rehab treatment will consist of: PT and OT we'll focus on regaining enough ambulation in order to return home The patient/family has a good understanding of our discharge process and will benefit from an interdisciplinary inpatient rehabilitation program. The patient has potential to make improvement and is in need of at least two of the following multidisciplinary therapies including but not limited to physical, occupational, speech, and prosthetics and orthotics. Additionally the patient will need services from respiratory, nutritional services, wound care, psychology, etc. (Customize this to each patient). Given the patients complex condition and risk of further medical complications, rehabilitation services cannot be safely or effectively provided at a lower level of care such as a jail facility. BARRIERS TO DISCHARGE: Home alone with family involved ESTIMATED LOS: 10 days DISPOSITION: Home with home care RELEVANT CHANGES SINCE PREADMISSION SCREENING: I have compared the patients medical and functional status at the time of the preadmission screening and there are: no changes PROGNOSIS: Good REHABILITATION GOALS: 1. PT and OT we'll focus on regaining enough ambulatory skills and regaining enough and dependent ADLs in order to return home to live independently All the above goals were reviewed with the patient and he/she is in agreement. By signing this document, I acknowledge that I have personally performed a full physical examination on this patient within 24 hours of admission to this inpatient rehabilitation facility and have determined the patient to be able to tolerate the above course of treatment at an intensive level for a reasonable period of time. I will be completing a detailed individualized Plan of Care for this patient by day #4 of the patients stay based upon the Preadmission Screen, the Post-Admission Evaluation, and the therapy evaluations. Admission Dx/Comorbidities: (1) Status post lumbar spine surgery for decompression of spinal cord ICD Codes: Z98.890 - Other specified postprocedural states (2) Iron deficiency ICD Codes: E61.1 - Iron deficiency (3) Anemia ICD Codes: D64.9 - Anemia, unspecified (4) Anxiety ICD Codes: F41.9 - Anxiety disorder, unspecified (5) Hyponatremia ICD Codes: E87.1 - Hypo-osmolality and hyponatremia (6) Renal insufficiency ICD Codes: N28.9 - Disorder of kidney and ureter, unspecified (7) Syncope ICD Codes: R55 - Syncope and collapse (8) Hypertension ICD Codes: I10 - Essential (primary) hypertension (9) Orthostasis ICD Codes: I95.1 - Orthostatic hypotension (10) Constipation ICD Codes: K59.00 - Constipation, unspecified (11) Transfusion of blood during current hospitalisation Assessment/Plan Assessment and Plan Assess & Plan/Chief Complaint Assessment: Status post lumbar spine decompression surgery POD # [address] Delong at [facility] in [place] Syncope Orthostasis episodes in the past chronic HTN labile levels Renal insufficiency improved today after fluids Hyponatremia improved with fluid restriction and s/p normal saline IV fluids 133 today Anemia s/p 1 unit of blood at [place] and received 1 unit yesterday since hemoglobin 7.1 and has cardiac risk factors now 9.3 Dehydration resolved with IV fluids Chronic AF Plan: Home meds except Plavix due to recent spine surgery SCD's Cardiology evaluation Fluid restriction 1500 today increased from 1000 Venofer DC after 1 dose since IV infiltrated 1 unit of blood yesterday with Lasix afterwards Inpatient rehabilitation today to continue recovery PIERCE JAMES DO Feb 28, 2019 12:47
[2019-02-28 12:48] VITALS: BP 164/84
--- NOTE | 2019-02-28 13:00 | NUR ---
DAUGHTER STATES PATIENT ALWAYS RATES BACK PAIN AN "8-10" AND WILL START ON BACLOFEN. SODIUM LEVEL UP TO 133 AND FLUID RESTRICTION CHANGED TO 1500 CC/DAY. NO BM X 3 DAYS AND HAS HAD SOFTENERS AND PRUNE JUICE. AGREEABLE TO TRYING DULCOLAX SUPPOSITORY BUT WANTS TO WAIT UNTIL AFTER FAMILY LEAVES LATER.
[2019-02-28] MEDS: DICLOFENAC 1% GEL 100 GM (VOLTAREN) TUBE TOP SCH ×3 (13:10→20:42)
[2019-02-28] MEDS: BACLOFEN 10 MG (LIORESAL) TAB PO PRN ×2 (14:57→23:11)
[2019-02-28] MEDS: HYDROcodone/APAP 5 MG/325 MG (LORTAB) TAB PO PRN ×2 (16:51→20:38)
[2019-02-28] MEDS: BISACODYL 10 MG SUPP (DULCOLAX) PR PRN (16:51)
[2019-02-28 18:49] VITALS: BP 142/52
--- NOTE | 2019-02-28 19:25 | NUR ---
bedside report received from ADDIE BERG, assume care of pt
[2019-02-28 20:38] VITALS: BP 184/101
[2019-02-28] MEDS: amLODIPine 5 MG (NORVASC) TAB PO SCH (20:38)
[2019-02-28] MEDS: FLECAINIDE 100 MG (TAMBOCOR) TAB PO SCH (20:38)
--- NOTE | 2019-02-28 20:38 | NUR ---
pt refused miralax & Senokot, b/p 184/101, scheduled Norvasc given, c/o back pain level 10/10 on numeric scale, Lortab 5 1 tab given
[2019-02-28] MEDS ORDERED: DOCUSATE SODIUM 100 MG (COLACE) CAP PO SCH (21:00)
--- NOTE | 2019-02-28 21:25 | NUR ---
rates back pain at 7/10 on numeric scale
--- NOTE | 2019-02-28 21:45 | NUR ---
b/p 178/78
[2019-02-28 22:00] VITALS: BP 178/78
--- NOTE | 2019-02-28 22:00 | NUR ---
was going to give Apresoline for elevated b/p but pt states too sick to stomach, Zofran 4mg given
[2019-02-28 23:08] VITALS: BP 154/70
--- NOTE | 2019-02-28 23:08 | NUR ---
states stomach much better now, b/p 154/70,
--- NOTE | 2019-02-28 23:11 | NUR ---
Lioresal 5mg given for muscle cramping
[2019-03-01] MEDS: HYDROcodone/APAP 5 MG/325 MG (LORTAB) TAB PO PRN ×5 (00:09→20:38)
--- NOTE | 2019-03-01 00:09 | NUR ---
c/o back pain level 9/10 on numeric scale, lortab 5 1 tab given
--- NOTE | 2019-03-01 00:45 | NUR ---
resting quietly in bed, pain level 0/10 on flacc scale
--- NOTE | 2019-03-01 02:42 | NUR ---
c/o back pain level 8/10 on numeric scale, Ultram 50mg given
[2019-03-01] MEDS: ALPRAZolam 0.25 MG (XANAX) TAB PO PRN ×2 (02:59→20:46)
--- NOTE | 2019-03-01 02:59 | NUR ---
c/o anxiety xanax 0.25mg given
--- NOTE | 2019-03-01 03:15 | NUR ---
rates pain level 7/10 on numeric scale
--- NOTE | 2019-03-01 04:04 | NUR ---
c/o back pain level 10/10 on numeric scale, Lortab 5 1 tab given
--- NOTE | 2019-03-01 04:45 | NUR ---
resting quietly in bed, pain level0/10 on flacc scale
[2019-03-01] MEDS: BACLOFEN 10 MG (LIORESAL) TAB PO PRN ×3 (06:09→20:37)
--- NOTE | 2019-03-01 06:09 | NUR ---
b/p 183/77 Apresoline 10mg & requests muscle relaxer, Lioresal 5mg given
[2019-03-01 06:11] VITALS: BP 183/77
[2019-03-01 08:00] VITALS: BP 169/82
--- NOTE | 2019-03-01 08:00 | NUR ---
COMPLAIN "ANOTHER BAD NIGHT". STATES PAIN IS WORSE AT NIGHT TIME. RATES PAIN A "5" PRESENTLY WHICH IS AN IMPROVEMENT. STILL HYPERTENSIVE, BUT IMPROVED - SEE VITAL SIGN INTERVENTION.
[2019-03-01] MEDS: DICLOFENAC 1% GEL 100 GM (VOLTAREN) TUBE TOP SCH ×4 (09:15→20:42)
[2019-03-01] MEDS: DOCUSATE SODIUM 100 MG (COLACE) CAP PO SCH ×2 (09:17→20:38)
[2019-03-01] MEDS: ALLOPURINOL 100 MG (ZYLOPRIM) TAB PO SCH (09:17)
[2019-03-01] MEDS: SENNA W/DOCUSATE (SENOKOT S) TABLET PO SCH ×2 (09:17→20:37)
[2019-03-01] MEDS: FLECAINIDE 100 MG (TAMBOCOR) TAB PO SCH ×2 (09:25→20:37)
[2019-03-01 13:00] VITALS: BP 183/74
--- NOTE | 2019-03-01 13:00 | NUR ---
AMBULATED IN GOMES WITH BACK BRACE ON AND WALKER AND ASST. OF ONE. TOLERATED WELL.
--- NOTE | 2019-03-01 14:37 | Cardiology Progress Note ---
Cardiology SOAP Progress Note Subjective: Complains of back discomfort. Objective: I&O/Vital Signs 03/01/19 03/01/19 03/01/19 03:17 06:11 09:00 Temp 37.2 Pulse 83 Resp 18 B/P (MAP) 183/77 (112) Pulse Ox 98 O2 Delivery Room Air Room Air Room Air 03/01/19 00:00 Intake Total 800 ml Balance 800 ml Constitutional: No appears stated age; AAO x 3; No apparent distress, No PERRL, No well-developed, No well-nourished, No other Respiratory: No accessory muscle use, No respiratory distress, No chest tender, No chest expansion is symmetric; chest is bilaterally symmetric; No lungs clear to percussion; lungs clear to auscultation; No crackles, No rhonchi, No rales, No stridor, No wheezing, No pleural rub, No other Cardiovascular: regular rate-rhythm, S1 and S2 Gastrointestional: soft, audible bowel sounds Extremities: normal range of motion, non-tender, normal inspection, no lower extremity edema bilateral Neurologic/Psychiatric: no motor/sensory deficits, alert, normal mood/affect, oriented x 3 Skin: normal color A/P: Assessment/Dx: Recent spine surgery, Paroxysmal atrial fibrillation, Chronic kidney disease, Anemia, Hyponatremia, Syncope. Plan: Recent spine surgery, DVT prophylaxis. Paroxysmal atrial fibrillation, not on oral anticoagulation due to recent spine surgery. Flecainide as an outpatient. Chronic kidney disease, defer to the primary team. Anemia, transfusion. Hyponatremia, unclear etiology. Syncope. Telemetry, echocardiogram. Telemetry shows no arrhythmias. Echocardiogram done 02/26/2019 shows hyperdynamic LV function with moderate diastolic dysfunction. Dehydration is likely. Generous IV fluid is recommended. Follow-up with Dr. Baltazar for cardiology after discharge. Thank you for your consultation. Please call me if you have any questions. Malcom Lynn MD, FACP, FACC, FSCAI, FHRS, CCDS Interventional Cardiology Cardiac Electrophysiology Vascular Medicine and Endovascular Interventions Ludy LYNN MD Mar 01, 2019 14:37
--- NOTE | 2019-03-01 14:50 | PM&R Progress Note ---
Subjective HPI/CC On Admission Date Seen by Provider: Mar 01, 2019 Time Seen by Provider: 11:45 Subjective/Events-last exam Patient doing pretty well Did not sleep well last night even after 3 Lortabs and Xanax BM moved after suppository SBP was in 180's and given Hydralazine so will monitor that closely and I counseled her on the plan for that SBP low's are limited and rare now Baclofen not really helping that much either Days are better than the nights Daughter at the bedside today Checked meds and labs Reviewed therapy notes Conferred with [employer] General: Fatigue Gastrointestinal: Constipation Musculoskeletal: back pain Neurological: Weakness, Numbness, Incoordination Objective Exam Vital Signs Vital Signs Date Time Temp Pulse Resp B/P (MAP) Pulse Ox O2 Delivery O2 Flow Rate FiO2 03/01/19 09:00 Room Air 03/01/19 06:11 37.2 83 18 183/77 (112) 98 Capillary Refill : Less Than 3 Seconds General Appearance: No Apparent Distress, WD/WN, Chronically ill, Obese HEENT: PERRL/EOMI, Normal ENT Inspection, Pharynx Normal Neck: Full Range of Motion, Normal Inspection, Non Tender, Supple, Carotid Bruit Respiratory: Chest Non Tender, Lungs Clear, Normal Breath Sounds, No Accessory Muscle Use, No Respiratory Distress Cardiovascular: Regular Rate, Rhythm, No Edema, No Gallop, No JVD, No Murmur, Normal Peripheral Pulses Gastrointestinal: Normal Bowel Sounds, No Organomegaly, No Pulsatile Mass, Non Tender, Soft Back: Decreased Range of Motion Extremity: Normal Capillary Refill, Normal Inspection, Normal Range of Motion (limited from back pain), Non Tender, No Calf Tenderness, No Pedal Edema Neurologic/Psychiatric: Alert, Oriented x3, No Motor/Sensory Deficits, jboss architect II- XII Norm as Tested, Depressed Affect, Motor Weakness (motor weakness of lower legs from spinal surgery 3/) Skin: Normal Color, Warm/Dry Lymphatic: No Adenopathy Results/Procedures Lab Patient resulted labs reviewed. FIM Transfers Therapy Code Descriptions/Definitions Functional [place] Measure: 0=Not Assessed/NA 4=Minimal Assistance 1=Total Assistance 5=Supervision or Setup 2=Maximal Assistance 6=Modified [place] 3=Moderate Assistance 7=Complete IndependenceSCALE: Activities may be completed with or without assistive devices. 3-Efaausixpi-segkcni completes the activity by him/herself with no assistance from a helper. 5-Set-up or Clean-up Assistance-helper sets up or cleans up; patient completes activity. [place] assists only prior to or following the activity. 4-Supervision or Touching Assistance-helper provides verbal cues and/or touching/steadying and/or contact guard assistance as patient completes activity. Assistance may be provided throughout the activity or intermittently. 3-Partial/Moderate Assistance-helper does LESS THAN HALF the effort. [place] l ifts, holds or supports trunk or limbs, but provides less than half the effort. 2-Substantial/Maximal Assistance-helper does MORE THAN HALF the effort. [place] lifts or holds trunk or limbs and provides more than half the effort. 5-Dvdnnksag-ivlrdm does ALL the effort. Patient does none of the effort to complete the activity. Or, the assistance of 2 or more helpers is required for t he patient to complete the activity. If activity was not attempted, code reason: 7-Patient Refused. 9-Not Applicable-not attempted and the patient did not perform the activity before the current illness, exacerbation or injury. 10-Not Attempted due to Environmental Limitations-(lack of equipment, weather restraints, etc.). 88-Not Attempted due to Medical Conditions or Safety Concerns. Roll Left to Right (QC): 3 Sit to Lying (QC): 3 Sit to Stand (QC): 4 Chair/Qua-cc-Lzvhe Xfer(QC): 4 Car Transfer (QC): 2 Gait Training Does the Patient Walk?: Yes Walk 10 feet (QC): 4 Walk 50 ft with 2 Turns(QC): 4 Walk 150 ft (QC): 4 Walking 10ft/uneven surface-QC: 3 Gait Assistive Device: FWW Wheelchair Training Does the Pt Use a Wheelchair?: No Stair Training #of Steps: 1 1 Step (curb) (QC): 3 4 Steps (QC): 88 12 Steps (QC): 88 Balance Picking up an Object (QC): 88 ADL-Treatment Eating (QC): 6 Oral Hygiene (QC): 5 Shower/Bathe Self (QC): 3 (assist with back, bottom, LE's) Upper Body Dressing (QC): 3 (s/u shirtmax A back brace) Lower Body Dressing (QC): 3 (assist with threading BLE, education of AE) On/Off Footwear (QC): 1 Toileting Hygiene (QC): 3 Assessment/Plan Assessment and Plan Assess & Plan/Chief Complaint Assessment: Status post lumbar spine decompression surgery POD # [address] Delong at [facility] in [place] Syncope Orthostasis episodes in the past chronic HTN labile levels Renal insufficiency improved today after fluids Hyponatremia improved with fluid restriction and s/p normal saline IV fluids 133 Saturday Anemia s/p 1 unit of blood at [facility] and received 1 unit yesterday since hemoglobin 7.1 and has cardiac risk factors Saturday 9.3 Dehydration resolved with IV fluids Chronic AF Plan: Home meds except Plavix due to recent spine surgery SCD's Cardiology evaluation Fluid restriction 1500 today increased from 1000 Venofer DC after 1 dose since IV infiltrated 1 unit of blood Saturday with Lasix afterwards Inpatient rehabilitation to continue recovery (1) Status post lumbar spine surgery for decompression of spinal cord (2) Iron deficiency (3) Anemia (4) Anxiety (5) Hyponatremia (6) Renal insufficiency (7) Syncope (8) Hypertension (9) Orthostasis (10) Constipation (11) Transfusion of blood during current hospitalisation PIERCE JAMES DO Mar 01, 2019 14:50
[2019-03-01 18:00] VITALS: BP 177/73
--- NOTE | 2019-03-01 19:00 | NUR ---
IMPROVED TODAY. LESS PAIN AND TOLERATING ACTIVITY BETTER. APPETITE IMPROVED.
[2019-03-01 20:35] VITALS: BP 190/90
[2019-03-01] MEDS: POLYETHYLENE GLYCOL 17 GM (MIRALAX) PACK PO SCH (20:37)
[2019-03-01] MEDS: amLODIPine 5 MG (NORVASC) TAB PO SCH (20:37)
[2019-03-01 22:05] VITALS: BP 178/80
[2019-03-02] MEDS: HYDROcodone/APAP 5 MG/325 MG (LORTAB) TAB PO PRN ×5 (01:11→23:24)
[2019-03-02] MEDS: BACLOFEN 10 MG (LIORESAL) TAB PO PRN ×3 (03:13→23:24)
[2019-03-02 04:00] VITALS: BP 166/90
[2019-03-02] MEDS: ALPRAZolam 0.25 MG (XANAX) TAB PO PRN (04:57)
[2019-03-02 05:57] LABS: BASOPHILS % (AUTO) 0 % (0-10); EOSINOPHILS # (AUTO) 0.6 10^3/uL (0.0-0.3); EOSINOPHILS % (AUTO) 6 % (0-10); HEMATOCRIT 30 % (35-52); HEMOGLOBIN 9.8 G/DL (11.5-16.0); LYMPHOCYTES # (AUTO) 1.9 X 10^3 (1.0-4.0); LYMPHOCYTES % (AUTO) 18 % (12-44); MEAN CORPUSCULAR HEMOGLOBIN 30 PG (25-34); MEAN CORPUSCULAR HGB CONC 33 G/DL (32-36); MEAN CORPUSCULAR VOLUME 90 FL (80-99); MONOCYTES # (AUTO) 0.8 X 10^3 (0.0-1.0); MONOCYTES % (AUTO) 8 % (0-12); NEUTROPHILS # (AUTO) 7.2 X 10^3 (1.8-7.8); NEUTROPHILS % (AUTO) 69 % (42-75); PLATELET COUNT 301 10^3/uL (130-400); RED CELL DISTRIBUTION WIDTH 14.6 % (10.0-14.5); WHITE BLOOD COUNT 10.5 10^3/uL (4.3-11.0)
[2019-03-02 06:11] LABS: ALBUMIN 3.6 GM/DL (3.2-4.5); BILIRUBIN,TOTAL 0.4 MG/DL (0.1-1.0); CALCIUM 10.1 MG/DL (8.5-10.1); CREATININE SERUM 1.48 MG/DL (0.60-1.30); POTASSIUM 4.1 MMOL/L (3.6-5.0); TOTAL PROTEIN 6.3 GM/DL (6.4-8.2)
[2019-03-02] MEDS: ALLOPURINOL 100 MG (ZYLOPRIM) TAB PO SCH (08:18)
[2019-03-02] MEDS: SENNA W/DOCUSATE (SENOKOT S) TABLET PO SCH ×2 (08:18→20:04)
[2019-03-02] MEDS: DICLOFENAC 1% GEL 100 GM (VOLTAREN) TUBE TOP SCH ×5 (08:19→20:05)
[2019-03-02] MEDS: DOCUSATE SODIUM 100 MG (COLACE) CAP PO SCH ×2 (08:19→20:04)
[2019-03-02] MEDS: FLECAINIDE 100 MG (TAMBOCOR) TAB PO SCH ×2 (08:19→20:03)
[2019-03-02] MEDS ORDERED: LOSA100T57 PO (08:24)
[2019-03-02] MEDS ORDERED: BIOT50002 SL (08:24)
[2019-03-02] MEDS ORDERED: TRIA1TAB3 PO (08:24)
[2019-03-02] MEDS ORDERED: MULT1TAB69 PO (08:24)
[2019-03-02] MEDS ORDERED: CHOL20003 PO (08:24)
[2019-03-02] MEDS ORDERED: CLOP75TA69 PO (08:24)
--- NOTE | 2019-03-02 08:26 | NUR ---
UPDATED MED REC BACK TO THE LIST REPORTED UPON ADMISSION TO CARDIAC STEP DOWN. NOTE THE FOLLOWING CHANGES WERE MADE WHEN THE PATIENT DISCHARGED TO REHAB THAT ARE NOT CURRENTLY REFLECTED ON THE HOME MED REC: STOP TAKING: BIOTIC 5,000 MCG HS VITAMIN D3 2,000 UNITS DAILY PLAVIX 75MG DAILY LOSARTAN 100MG DAILY MTV DAILY TRIAMTERENE HCTZ 37.5-25MG DAILY
[2019-03-02 09:25] VITALS: BP 166/90
--- NOTE | 2019-03-02 10:03 | Occupational Ther Daily Note ---
OT Current Status-Daily Note Subjective Pt. reports 7/10 back pain. Pt. has already had pain medication. Appearance Pt. in chair. Agrees to shower with OT assist. Mental Status/Objective Patient Orientation: Person, Place ADL-Treatment Therapy Code Descriptions/Definitions Functional [place] Measure: 0=Not Assessed/NA 4=Minimal Assistance 1=Total Assistance 5=Supervision or Setup 2=Maximal Assistance 6=Modified [place] 3=Moderate Assistance 7=Complete IndependenceSCALE: Activities may be completed with or without assistive devices. 3-Gwwtjwgqva-gqkxsap completes the activity by him/herself with no assistance from a helper. 5-Set-up or Clean-up Assistance-helper sets up or cleans up; patient completes activity. [place] assists only prior to or following the activity. 4-Supervision or Touching Assistance-helper provides verbal cues and/or touching/steadying and/or contact guard assistance as patient completes activity. Assistance may be provided throughout the activity or intermittently. 3-Partial/Moderate Assistance-helper does LESS THAN HALF the effort. [place] lifts, holds or supports trunk or limbs, but provides less than half the effort. 2-Substantial/Maximal Assistance-helper does MORE THAN HALF the effort. [place] lifts or holds trunk or limbs and provides more than half the effort. 2-Qxccrjhsr-mfdfkq does ALL the effort. Patient does none of the effort to complete the activity. Or, the assistance of 2 or more helpers is required for the patient to complete the activity. If activity was not attempted, code reason: 7-Patient Refused. 9-Not Applicable-not attempted and the patient did not perform the activity before the current illness, exacerbation or injury. 10-Not Attempted due to Environmental Limitations-(lack of equipment, weather restraints, etc.). 88-Not Attempted due to Medical Conditions or Safety Concerns. Eating (QC): 7 Oral Hygiene (QC): 88 Shower/Bathe Self (QC): 3 (Min assist in stance to was erlin area. Assist to dry between toes. Pt. able to wash all other parts in shower with SBA and LH sponge.) Upper Body Dressing (QC): 3 (Min assist to doff shirt. SBA to don shirt. SBA to doff brace. Max assist to don brace.) Lower Body Dressing (QC): 2 (Pt. attempted to use DS.) On/Off Footwear: 2 (OT demonstrated sock aide. OT donned sock on sock aide and pt. able to put it on. OT had to don other sock as pt. was light headed in shower.) Toileting Hygiene (QC): 2 Toilet Transfer (QC): 3 (Min assist.) Other Treatment Pt. agrees to shower. Stood with min assist from chair and ambulated to toilet. Noted that pt. has her own BSC over toilet, and it is too narrow and too high. Max assist for toileting task. Ambulated to shower and able to shower with min assist. Increased time needed. After shower, pt. required assist to dry and don clothing using AE. Pt. began to report that she felt light headed, and so OT finished dressing for her. Ambulated back to chair and made comfortable. OT took BP. BP- 153/80, HR- 82, O2- 97%. Nursing and physician aware. OT brought in different commode with increased space on sides, and lower to ground. Daughter present in room and will take pictures of pt's home for suggestions of needed equipment. All needs met up in chair. Education OT Patient Education: Correct positioning, Modified ADL techniques, Progress toward Goal/Update tx plan, Purpose of tx/functional activities, Reviewed precautions, Rehab process, Transfer techniques, Use of adapted equipment Teaching Recipient: Patient Teaching Methods: Demonstration, Discussion Response to Teaching: Verbalize Understanding, Return Demonstration OT Fci Goals Fci Goals Time Frame: Mar 14, 2019 Eating (QC): 6 Oral Hygiene (QC): 6 Toileting Hygiene (QC): 6 Shower/Bathe Self (QC): 6 Upper Body Dressing (QC): 6 Lower Body Dressing (QC): 6 On/Off Footwear (QC): 6 Additional Goals: 1-Demonstrate ADL Tasks, 2-Verbalize Understanding, 3- ImproveStrength/Dirk 1=Demonstrate adherence to instructed precautions during ADL tasks. 2=Patient will verbalize/demonstrate understanding of assistive devices/modifications for ADL. 3=Patient will improve strength/tolerance for activity to enable patient to perform ADL's. OT Education/Plan Problem List/Assessment Assessment: Decreased Activ Tolerance, Decreased UE Strength, Dependent Transfers, Impaired Bed Mobility, Impaired Funct Balance, Impaired I ADL's, Impaired Self-Care Skills Discharge Recommendations Plan/Recommendations: Continue POC Therapy Discharge Recommendati: Home & Family, Post Acute OT Equpiment Recommendations-D/C: Bedside Commode, Hip Kit Treatment Plan/Plan of Care Treatment,Training & Education: Yes Patient would benefit from OT for education, treatment and training to promote independence in ADL's, mobility, safety and/or upper extremity function for ADL's. Plan of Care: ADL Retraining, Caregiver Training, Functional Mobility, Group Exercise/Act as Ind, UE Funct Exercise/Act Treatment Duration: Mar 14, 2019 Frequency: At least 5 of 7 days/Wk (IRF) Estimated Hrs Per Day: 1.5 hours per day Agreement: Yes Rehab Potential: Good Time/GCodes Start Time: 08:30 Stop Time: 10:00 Total Time Billed (hr/min): 90 Billed Treatment Time 1, ADL x 6 RADHA JACOME OT Mar 02, 2019 10:03
--- NOTE | 2019-03-02 11:00 | Physical Therapy Daily Note ---
PT Daily Note-Current Subjective Pt. agrees to Rx. States pain in her back is 9/10 van with attempts to TRF sup to sit and sit to sup Pain Numeric Pain Scale: 9 Location: Medial Location Body Site: Back Pain Description: Ache Mental Status Patient Orientation: Normal For Age Attachments: Other-See Comments (back brace) Transfers SCALE: Activities may be completed with or without assistive devices. 0-Kslkxowvmg-ettmdmk completes the activity by him/herself with no assistance from a helper. 5-Set-up or Clean-up Assistance-helper sets up or cleans up; patient completes activity. [place] assists only prior to or following the activity. 4-Supervision or Touching Assistance-helper provides verbal cues and/or touching/steadying and/or contact guard assistance as patient completes activity. Assistance may be provided throughout the activity or intermittently. 3-Partial/Moderate Assistance-helper does LESS THAN HALF the effort. [place] lifts, holds or supports trunk or limbs, but provides less than half the effort. 2-Substantial/Maximal Assistance-helper does MORE THAN HALF the effort. [place] lifts or holds trunk or limbs and provides more than half the effort. 1-Kjcsvieyl-mupekc does ALL the effort. Patient does none of the effort to complete the activity. Or, the assistance of 2 or more helpers is required for the patient to complete the activity. If activity was not attempted, code reason: 7-Patient Refused. 9-Not Applicable-not attempted and the patient did not perform the activity before the current illness, exacerbation or injury. 10-Not Attempted due to Environmental Limitations-(lack of equipment, weather restraints, etc.). 88-Not Attempted due to Medical Conditions or Safety Concerns. Roll Left & Right (QC): 5 Sit to Lying (QC): 3 Lying to Sitting/Side of Bed(Q: 4 Sit to Stand (QC): 4 Toilet Transfer (QC): 4 needs assist to pull pants up and down and min assist to steady on off toilet Weight Bearing Right Lower Extremity: Right Full Weight Bearing Left Lower Extremity: Left Full Weight Bearing Gait Training Does the Patient Walk?: Yes Walk 10 feet (QC): 4 Walk 50 ft with 2 Turns(QC): 4 Walk 150 ft (QC): 4 Gait Persons Needed: 1 Gait Assistive Device: FWW knees slightly flexed, heavy wt bearing on UEs on FWW, LLE ext rotated and heel in front of right toe, pt. corrects and works on this giving good effort Exercises Supine Ex: Ankle pumps, Quad Set, Rolling, Glut sets, Heel Slides (x5 only), Short Arc Quads, Scooting, Hip abd/add Supine Reps: 15 Seated Therapy Exercises: Ankle pumps, Sit to stand, Long arc quads, Hip flexion Seated Reps: 12 Treatments all movement slow with c/o increased pain. pt. has increased pain in laying flat and needs bolster under knees for comfort in back. LE exercise done one LE at a time Assessment Current Status: Good Progress gives good effort, pain limits function PT Short Term Goals Short Term Goals Time Frame: Mar 07, 2019 Roll Left & Right: 6 Sit to lyin Lying to sitting on side of be: 6 Sit to stand: 6 PT Long-Term Goals Long-Term Goals PT Long-Term Goals Time Frame: Mar 14, 2019 Roll Left & Right (QC): 6 Sit to Lying (QC): 6 Lying-Sitting on Side/Bed(QC): 6 Sit to Stand (QC): 6 Chair/Xgl-ex-Gects Xfer(QC): 6 Toilet Transfer (QC): 6 Car Transfer (QC): 6 Does the Patient Walk: Yes Walk 10 feet (QC): 6 Walk 50ft with 2 Turns (QC): 6 Walk 150 ft (QC): 6 Walking 10ft on Uneven Surface: 6 1 Step (curb) (QC): 6 4 Steps (QC): 4 12 Steps (QC): 4 Picking up an Object (QC): 88 Does the Pt use WC or Scooter?: No Wheel 50 feet with 2 turns (QC: 9 Wheel 150 feet: 9 PT Plan Treatment/Plan Treatment Plan: Continue Plan of Care Treatment Plan: Bed Mobility, Education, Functional Activity Dirk, Functional Strength, Group Therapy, Gait, Safety, Therapeutic Exercise, Transfers Treatment Duration: Mar 14, 2019 Frequency: Modified Program (IRF) Estimated Hrs Per Day: 1.5 hours per day Patient and/or Family Agrees t: Yes Safety Risks/Education Patient Education: Gait Training, Transfer Techniques, Correct Positioning, Disease Process, Safety Issues Teaching Recipient: Patient Teaching Methods: Demonstration, Discussion Response to Teaching: Verbalize Understanding, Return Demonstration, Reinforcement Needed Time/GCodes Time In: 1000 Time Out: 1100 Total Billed Treatment Time: 60 Total Billed Treatment 1,FA30m,EX15m,GT15m G[facility] Mar 02, 2019 11:00
--- NOTE | 2019-03-02 11:01 | PM&R Progress Note ---
Subjective HPI/CC On Admission Date Seen by Provider: Mar 02, 2019 Time Seen by Provider: 09:00 Subjective/Events-last exam Hgb 9.8 Pain control is an issue especially at night so will start Gabapentin 100mg at night Voltaren gel and K-pad will be provided Burning with urination so will do an in and out cath if that continues to be a problem Sodium level is now 135 Had another episode after she got up from the bathroom and walked to her chair but her BP did not have orthostatic levels, it was 153/84 Days are better than the nights Daughter at the bedside today Checked meds and labs Reviewed therapy notes Conferred with pediatric cardiologist of Systems Musculoskeletal: back pain, leg pain Objective Exam Vital Signs Vital Signs Date Time Temp Pulse Resp B/P (MAP) Pulse Ox O2 Delivery O2 Flow Rate FiO2 03/02/19 15:54 37.0 88 14 175/82 (113) 96 Room Air 03/02/19 09:25 21 Capillary Refill : Less Than 3 Seconds General Appearance: No Apparent Distress, WD/WN, Chronically ill, Obese HEENT: PERRL/EOMI, Normal ENT Inspection, Pharynx Normal Neck: Full Range of Motion, Normal Inspection, Non Tender, Supple, Carotid Bruit Respiratory: Chest Non Tender, Lungs Clear, Normal Breath Sounds, No Accessory Muscle Use, No Respiratory Distress Cardiovascular: Regular Rate, Rhythm, No Edema, No Gallop, No JVD, No Murmur, Normal Peripheral Pulses Gastrointestinal: Normal Bowel Sounds, No Organomegaly, No Pulsatile Mass, Non Tender, Soft Back: Decreased Range of Motion Extremity: Normal Capillary Refill, Normal Inspection, Normal Range of Motion (limited from back pain), Non Tender, No Calf Tenderness, No Pedal Edema Neurologic/Psychiatric: Alert, Oriented x3, No Motor/Sensory Deficits, nurse aide evaluator II- XII Norm as Tested, Depressed Affect, Motor Weakness (motor weakness of lower legs from spinal surgery 3/5) Skin: Normal Color, Warm/Dry Lymphatic: No Adenopathy Results/Procedures Lab Laboratory Tests 03/02/19 05:40 Patient resulted labs reviewed. FIM Transfers Therapy Code Descriptions/Definitions Functional [place] Measure: 0=Not Assessed/NA 4=Minimal Assistance 1=Total Assistance 5=Supervision or Setup 2=Maximal Assistance 6=Modified [place] 3=Moderate Assistance 7=Complete IndependenceSCALE: Activities may be completed with or without assistive devices. 9-Sjhafzgixt-tsvkucl completes the activity by him/herself with no assistance from a helper. 5-Set-up or Clean-up Assistance-helper sets up or cleans up; patient completes activity. [place] assists only prior to or following the activity. 4-Supervision or Touching Assistance-helper provides verbal cues and/or touching/steadying and/or contact guard assistance as patient completes activity. Assistance may be provided throughout the activity or intermittently. 3-Partial/Moderate Assistance-helper does LESS THAN HALF the effort. [place] lifts, holds or supports trunk or limbs, but provides less than half the effort. 2-Substantial/Maximal Assistance-helper does MORE THAN HALF the effort. [place] lifts or holds trunk or limbs and provides more than half the effort. 2-Rkmklgpxg-ilgqrv does ALL the effort. Patient does none of the effort to complete the activity. Or, the assistance of 2 or more helpers is required for the patient to complete the activity. If activity was not attempted, code reason: 7-Patient Refused. 9-Not Applicable-not attempted and the patient did not perform the activity before the current illness, exacerbation or injury. 10-Not Attempted due to Environmental Limitations-(lack of equipment, weather restraints, etc.). 88-Not Attempted due to Medical Conditions or Safety Concerns. Roll Left to Right (QC): 3 Sit to Lying (QC): 3 Sit to Stand (QC): 4 Chair/Fnc-ts-Boeih Xfer(QC): 4 Car Transfer (QC): 2 Gait Training Does the Patient Walk?: Yes Walk 10 feet (QC): 4 Walk 50 ft with 2 Turns(QC): 4 Walk 150 ft (QC): 4 Walking 10ft/uneven surface-QC: 3 Gait Assistive Device: FWW Wheelchair Training Does the Pt Use a Wheelchair?: No Stair Training #of Steps: 1 1 Step (curb) (QC): 3 4 Steps (QC): 88 12 Steps (QC): 88 Balance Picking up an Object (QC): 88 ADL-Treatment Eating (QC): 7 Oral Hygiene (QC): 88 Shower/Bathe Self (QC): 3 (Min assist in stance to was erlin area. Assist to dry between toes. Pt. able to wash all other parts in shower with SBA and LH sponge.) Upper Body Dressing (QC): 3 (Min assist to doff shirt. SBA to don shirt. SBA to doff brace. Max assist to don brace.) Lower Body Dressing (QC): 2 (Pt. attempted to use DS.) On/Off Footwear (QC): 2 (OT demonstrated sock aide. OT donned sock on sock aide and pt. able to put it on. OT had to don other sock as pt. was light headed in shower.) Toileting Hygiene (QC): 2 Toilet Transfer (QC): 3 (Min assist.) Assessment/Plan Assessment and Plan Assess & Plan/Chief Complaint Assessment: Status post lumbar spine decompression surgery POD # [address] Delong at [facility] in [place] Syncope Orthostasis episodes in the past chronic HTN labile levels Renal insufficiency improved today after fluids Hyponatremia improved with fluid restriction and s/p normal saline IV fluids 133 Saturday Anemia s/p 1 unit of blood at [facility] and received 1 unit Saturday since hemoglobin 7.1 and has cardiac risk factors today 9.8 Dehydration resolved with IV fluids Chronic AF Plan: Home meds except Plavix due to recent spine surgery SCD's Cardiology evaluation Fluid restriction 1500 today increased from 1000 Venofer DC after 1 dose since IV infiltrated 1 unit of blood Saturday with Lasix afterwards Inpatient rehabilitation to continue recovery (1) Status post lumbar spine surgery for decompression of spinal cord (2) Iron deficiency (3) Anemia (4) Anxiety (5) Hyponatremia (6) Renal insufficiency (7) Syncope (8) Hypertension (9) Orthostasis (10) Constipation (11) Transfusion of blood during current hospitalisation PIERCE JAMES DO Mar 02, 2019 11:01
--- NOTE | 2019-03-02 11:02 | Individualized Plan of Care ---
Individualized Plan of Care Rehab Nursing IPOC Order Admission Date Feb 28, 2019 at 09:15 Current Orders Orders Admission Order(Inpt,Obs,Sdc) (02/27/19 11:31) Vital Signs: Per Unit Policy ( 08,16,00 (02/27/19 11:31) Chon Peña 09,21 (02/27/19 11:31) Sequential Compression Device Q4H (02/27/19 11:31) Bender Helper-Inpt Rehab Con (02/27/19 11:31) Rehab Nursing Orders-Ipoc (02/27/19 11:31) Physical Therapy Rehab Orders (02/27/19 11:31) Occupational Therapy Rehab Ord (02/27/19 11:31) Speech Therapy Rehab Orders (02/27/19 11:31) General/Regular (02/27/19 Dinner) Intake & Output 06,14,22 (02/27/19 11:31) Precautions (Aru) (02/27/19 11:31) Weekly Weight WEEK (02/27/19 11:31) Rehab-Intensity Of Therapy (02/27/19 11:31) Initiate Admission Nursing Pro .admission (02/27/19 11:31) Alprazolam Tablet (Xanax Tablet) (02/27/19 11:45) Calcium Carbonate Chew Tablet (Antacid C (02/27/19 11:45) Diphenhydramine Tablet (Benadryl Tablet) (02/27/19 11:45) Docusate Sodium Capsule (Colace Capsule) (02/27/19 21:00) Docusate Sodium Capsule (Colace Capsule) (02/27/19 11:45) Bisacodyl Suppository (Dulcolax Supposit (02/27/19 11:45) Lactulose Oral Solution (Enulose Oral So (02/27/19 11:45) Na Phos/Na Biphos Enema (Fleet Enema Jose (02/27/19 11:45) Guaifenesin/Codeine Syrup (Robitussin Ac (02/27/19 11:45) Loperamide Tablet (Imodium Tablet) (02/27/19 11:45) Melatonin Tablet (Melatonin Tablet) (02/27/19 11:45) Polyethylene Glycol Powder Pkt (Miralax (02/27/19 21:00) Ondansetron Injection (Zofran Injectio (02/27/19 11:45) Ondansetron Oral Dissolve Tab (Zofran (02/27/19 11:45) Senna S Tablet (Senokot S Tablet) (02/27/19 21:00) Initiate Admission Nursing Pro .admission (02/27/19 11:31) Patient Visit (02/28/19 ) Pt Eval Moderate Complexity (02/28/19 ) Functional Activities, Ea 15 (02/28/19 ) Hydrocodone/Apap 5/325 Tablet (Lortab 5 (02/28/19 12:30) Sequential Compression Device Q4H (02/28/19 12:28) Chon Hose (02/28/19 12:28) Vte Contraindication (02/28/19 12:28) General/Regular (02/28/19 Dinner) Acetaminophen Tablet (Tylenol Tablet) (02/28/19 12:30) Albuterol Pre-Mix Nebs (Rt) (Proventil (02/28/19 12:30) Allopurinol Tablet (Zyloprim Tablet) (03/01/19 09:00) Diclofenac 1% Gel (Voltaren 1% Gel) (02/28/19 13:00) Flecainide Tablet (Tambocor Tablet) (02/28/19 21:00) Hydrocodone/Apap 5/325 Tablet (Lortab 5 (02/28/19 12:30) Polyethylene Glycol Powder Pkt (Miralax (02/28/19 21:00) Senna S Tablet (Senokot S Tablet) (02/28/19 21:00) Amlodipine Tablet (Norvasc Tablet) (02/28/19 21:00) Hydralazine Tablet (Apresoline Tablet) (02/28/19 12:30) Tramadol Tablet (Ultram Tablet) (02/28/19 12:30) Consult Cardiology (02/28/19 12:28) Incentive Spirometry Initial (02/28/19 12:28) Incentive Spirometry (Nursing) Q2H (02/28/19 12:28) Ambulate 08,12,20 (02/28/19 12:50) Sequential Compression Device Q4H (02/28/19 12:50) Dvt/Vte Risk - Notifiy Physici Q4H (02/28/19 12:50) Baclofen Tablet (Lioresal Tablet) (02/28/19 13:15) Fluid Restriction (02/28/19 13:07) Vte Contraindication (02/28/19 13:57) Cbc With Automated Diff (03/02/19 06:00) Comprehensive Metabolic Panel (03/02/19 06:00) Mat Initiate Protocol (03/02/19 09:25) Heating Pad (03/02/19 09:59) Gabapentin Capsule/Tablet (Neurontin Cap (03/02/19 21:00) Rehab Nursing Orders: Ongoing Assess. of Cognitive Status, Ongoing Assess. of Function Status, Bladder Management, Bladder Scan, Bladder Training, Bowel Management, Bowel Training, Disease Management & Educaiton, DVT Prophylaxis, Fall Prevention, Fluid/Electrolyte/Nutrition Mgmt, Infection Prevention, Medication Management & Education, Management of Risks & Complications, Management of Skin Intergrity, Nutrition Management, Pain Management, Patient/Family Support, Safety Management Intensity of Therapy to be met Patient to be seen: 15 hrs over 7 cons. days PT IPOC Problem List: Activity Tolerance, Functional Strength, Safety, Balance, Gait, Transfer, Bed Mobility Treatment Plan: Continue Plan of Care Bed Mobility, Education, Functional Activity Dirk, Functional Strength, Group Therapy, Gait, Safety, Therapeutic Exercise, Transfers Treatment Duration: Mar 14, 2019 Frequency: Modified Program (IRF) Estimated Hrs Per Day: 1.5 hours per day OT IPOC Problems: Decreased Activ Tolerance, Decreased UE Strength, Dependent Transfers, Impaired Bed Mobility, Impaired Funct Balance, Impaired I ADL's, Impaired Self-Care Skills OT Treatment, Training and Edu: Yes Plan of Care: ADL Retraining, Caregiver Training, Functional Mobility, Group Exercise/Act as Ind, UE Funct Exercise/Act Treatment Duration: Mar 14, 2019 Frequency: At least 5 of 7 days/Wk (IRF) Estimated Hrs Per Day: 1.[address] IPOC Speech Therapy Treatment Plan: Discontinue ST Treatment Duration: Mar 02, 2019 Frequency: Modified Program (IRF) Estimated Hrs Per Day: Other Bender Helper/Case Mgmt Bender Helper/Case Managemen: Discharge Planning Dietitian/Senior Microsoft Net Developer Dietitian/Senior Microsoft Net Developer to monitor nutritional status and make changes and/or recommendations as needed and work with speech pathology on dietary upgrades as the occur. Physician IPOC Medical Issues being managed closely and that require the 24 hour availability of a physician: Recent extensive spine surgery with labile HTN and orthostasis with acute renal failure with severe anemia requiring transfusions will require close monitoring Medical Issues: Bowel/Bladder Function, DVT Prophylaxis, Falls Precautions, Fluid/Electrolyte/Nutrition Balance, Infection Protection, Pain Management Brief Synthesis of Preadmission Screen, Post-Admission Evaluation, and Therapy Evaluations: PT will help ambulate while working through muscular pain OT will help regain ADL's in order to return home Medical Prognosis: Good Anticipated Length of Stay: 10 days PIERCE JAMES DO Mar 02, 2019 11:02
--- NOTE | 2019-03-02 12:20 | ST Cognitive Linguistic Eval ---
Speech Evaluation-General Medical Diagnosis syncope, weakness, s/p lumbar fusion Onset Date: Feb 26, 2019 Therapy Diagnosis Therapy Diagnosis: Cognitive-communication Referral Referring Physician: Dr. Chaves Medical History Pertinent Medical History: Atrial Fib, Arthritis, HTN Reviewed History: Yes Social History Current Living Status: Alone Speech PLF-Current Status Prior Level of Function Patient lived alone in her home where she was independent for most of her daily needs prior to back surgery. Subjective Patient was pleasant and cooperative with the cognitive assessment. Language Eval: Auditory Comprehends Simple Yes/No Ques: Functional Indent/Objects Multiple [place]: Functional Ident/Pics in Multiple [place]: Functional Follows 1-Step Commands: Functional Follows Complex Directions: Functional Follows General Conversations: Functional Language Eval: Verbal Language Completes Spontaneous Greeting: Functional Produces Auto, Serial Info: Functional Imitates Simple Words/Phrases: Functional Word Finding: Functional Requests Basic Needs: Functional States Basic Personal Info: Functional Expresses Complex Ideas: Functional Objective Cognitive Domain Attention: WNL Memory: Mild Problem Solving: Functional Executive Functions: WNL Visuospatial Skills: WNL Composite Severity Rating: WNL Clock Drawing Severity Rating: WNL Objective Formal/Standardized Tests [facility] Mental Status ([facility]) Results 28/30, within normal range of function Oral Motor/Speech Production Within Normal Function Impression Patient is a pleasant 79 year old female who was admitted to the ARU s/p back surgery. Patient was given the SLUMS with a score of 28/30 obtained. Patient does not require further ST services at this time. Speech Patient Assess Expression of Ideas/Wants: Expression (4) Understanding Verbal Content: Understands (4) Brief Interview-Mental Status: Yes Repetition of Three Words: Three (3) Temporal Orientation: Year: Correct (3) Temporal Orientation: Month: Accurate within 5 days(2) Temporal Orientation: Day: Correct (1) Recall : Wear to say "Sock": Yes, no cue required (2) Recall : Color: Yes, no cue required (2) Recall : Bed: Yes, no cue required (2) Memory/Recall Ability: Current season, That he or she is in a hsp/hsp unit Speech-Plan Patient/Family Goals Patient/Family Goals: Patient plans on returning to her home upon rehab discharge. Treatment Plan Speech Therapy Treatment Plan: Discontinue ST Patient does not require further skilled ST services at this time. Treatment Duration: Mar 02, 2019 Frequency: 1 time per week Estimated Hrs Per Day: .25 hour per day Rehab Potential: Good Barriers to Learning: None identified Pt/Family Agrees to Plan: Yes Safety Risks/Education Teaching Recipient: Patient Teaching Methods: Discussion Response to Teaching: Verbalize Understanding Education Topics Provided: Safety within her room and communication of wants/needs Time Speech Therapy Time In: 11:00 Speech Therapy Time Out: 11:15 Total Billed Time: 15 Billed Treatment Time 1, BREE Guillermo Mar 02, 2019 12:20
--- NOTE | 2019-03-02 13:59 | Physical Therapy Daily Note ---
PT Daily Note-Current Subjective Pt. up in recliner feet up asleep, family present and supportive. Pt. wants to toilet and walk Pain Numeric Pain Scale: 5-Moderate Pain Location: Medial Location Body Site: Back Pain Description: Ache Comment: also c/o lateral bilat thighs Mental Status Patient Orientation: Normal For Age Attachments: Other-See Comments (assist to abelino back brace) Transfers SCALE: Activities may be completed with or without assistive devices. 5-Mjlthurajz-epbaukc completes the activity by him/herself with no assistance from a helper. 5-Set-up or Clean-up Assistance-helper sets up or cleans up; patient completes activity. [place] assists only prior to or following the activity. 4-Supervision or Touching Assistance-helper provides verbal cues and/or touching/steadying and/or contact guard assistance as patient completes activity. Assistance may be provided throughout the activity or intermittently. 3-Partial/Moderate Assistance-helper does LESS THAN HALF the effort. [place] lifts, holds or supports trunk or limbs, but provides less than half the effort. 2-Substantial/Maximal Assistance-helper does MORE THAN HALF the effort. [place] lifts or holds trunk or limbs and provides more than half the effort. 9-Twhlgevfu-tsvpgv does ALL the effort. Patient does none of the effort to complete the activity. Or, the assistance of 2 or more helpers is required for the patient to complete the activity. If activity was not attempted, code reason: 7-Patient Refused. 9-Not Applicable-not attempted and the patient did not perform the activity before the current illness, exacerbation or injury. 10-Not Attempted due to Environmental Limitations-(lack of equipment, weather restraints, etc.). 88-Not Attempted due to Medical Conditions or Safety Concerns. sit to stand x 6 trials CGA to SBA Weight Bearing Right Lower Extremity: Right Full Weight Bearing Left Lower Extremity: Left Full Weight Bearing Gait Training Does the Patient Walk?: Yes Walk 10 feet (QC): 4 Walk 50 ft with 2 Turns(QC): 4 Walk 150 ft (QC): 4 Gait Persons Needed: 1 Exercises Seated Therapy Exercises: Ankle pumps, Sit to stand, Long arc quads, Hip flexion, Hip abd/add Seated Reps: 12 Treatments toileted with assist for pants up down Assessment Current Status: Good Progress pt. is motivated and gives good effort but pain limits function PT Short Term Goals Short Term Goals Time Frame: Mar 07, 2019 Roll Left & Right: 6 Sit to lyin Lying to sitting on side of be: 6 Sit to stand: 6 PT Setup Operator Goals Setup Operator Goals PT Jail Goals Time Frame: Mar 14, 2019 Roll Left & Right (QC): 6 Sit to Lying (QC): 6 Lying-Sitting on Side/Bed(QC): 6 Sit to Stand (QC): 6 Chair/Oke-kz-Gmgib Xfer(QC): 6 Toilet Transfer (QC): 6 Car Transfer (QC): 6 Does the Patient Walk: Yes Walk 10 feet (QC): 6 Walk 50ft with 2 Turns (QC): 6 Walk 150 ft (QC): 6 Walking 10ft on Uneven Surface: 6 1 Step (curb) (QC): 6 4 Steps (QC): 4 12 Steps (QC): 4 Picking up an Object (QC): 88 Does the Pt use WC or Scooter?: No Wheel 50 feet with 2 turns (QC: 9 Wheel 150 feet: 9 PT Plan Treatment/Plan Treatment Plan: Continue Plan of Care Treatment Plan: Bed Mobility, Education, Functional Activity Dirk, Functional Strength, Group Therapy, Gait, Safety, Therapeutic Exercise, Transfers Treatment Duration: Mar 14, 2019 Frequency: Modified Program (IRF) Estimated Hrs Per Day: 1.5 hours per day Patient and/or Family Agrees t: Yes Safety Risks/Education Patient Education: Gait Training, Transfer Techniques, Correct Positioning, Disease Process, Safety Issues Teaching Recipient: Patient Teaching Methods: Demonstration, Discussion Response to Teaching: Verbalize Understanding, Return Demonstration, Reinforc ement Needed Time/GCodes Time In: 1325 Time Out: 1400 Total Billed Treatment Time: 35 Total Billed Treatment 1,GT20m,FA15m GINA MCMAHON SUPERVISING BAILIFF Mar 02, 2019 13:59
--- NOTE | 2019-03-02 14:00 | NUR ---
Pt resting with daughter, Vika at bedside. The pt and her family are Pentec[employer]alism and attend [facility] [employer] [facility] in [place]. The pt said pain has made it difficult to sleep the past few nights. Dr. Lynn arrived just after our visit.
--- NOTE | 2019-03-02 14:49 | NUR ---
"RD ASSESSMENT PMHx: afib; hypercholesterolemia; HTN; hypotension; chronic constipation; gout PT INTERACTION: Pt was awake and pleasant during nutrition assessment. Pt states current appetite is pretty poor, but was better prior to admit. Note avg PO intake of 48% x2d, per chart review. Pt states following a regular diet at home, and has no issues with chewing/swallowing food. Pt states no recent issues with n/v at this time. Pt states some recent issues with constipation. Note last BM was 02/28 and pt currently on bowel regimen of miralax HS; senna BID; and colace BID, per chart review. Pt states no recent wt changes. Note unable to determine recent wt hx, per chart review. ABNORMAL NUTRITION-RELATED LAB VALUES LOW: Pro 6.3 HIGH: BUN 24; cr 1.48 Est. kcal needs: 7398-6409 kcal | 15-18 kcal/kg Est. Pro needs: 94-112 g Pro | 1.0-1.2 g Pro/kg PES STATEMENT: Inadequate oral intake (NI-2.1) related to loss of appetite | constipation as evidenced by pt interview | avg PO intake 48% x2d INTERVENTION: Continue with current diet order of Regular diet. Add Ensure Enlive (vary) to meals TID, for increased kcal intake. Provides 350 kcal and 13 g Pro per serving. Will continue to follow and reassess as pt needs and status change. MONITOR/EVALUATE: PO Intake; Plan of Care; Hydration Status; Weight Status; Lab Values Leslie Mahmood, MS, RD, LD"
--- NOTE | 2019-03-02 15:08 | NUR ---
ADMISSION Initial assessment completed with patient with a granddaughter at bedside. She was admitted to ARU for Lumbar Spinal Stenosis and Neurogenic Rishabh, post op surgery for decompression of spinal cord. Surgery was performed at [facility] in [place] by Dr. Delong on 02/23/19 and patient admitted to [facility] Cardiac Stepdown 02/26 prior to transitioning to Acute Rehab Unit 02/28/19. Patient resided home alone and was IADL, including driving. She occasionally used a standard cane when needed. DME: Patient has a BSC, she will need a FWW. Reviewed agencies in her service area, she requested ghost writer get the walker from [facility] for convenience. PCP: Dr. Fred Peraza DO, [facility], [facility], [place]. [phone]. Patient indicates she has only been to him once because she just changed from her former PCP. INSURED: Medicare, [email or web address]. ADVANCED DIRECTIVE: Yes, her daughter Vika Nvees is her agent. Weekly team conference was discussed, patient and granddaughter indicated understanding. Since patient arrived 02/28/19, anticipate patient will be reviewed next week for a more accurate target discharge. CONTACTS: Patient has 3 daughters: Vika Neves, DPOA [address] [place] [address] Fabienne Martin [place] [phone] MALINA Velasco [phone] Ariela will be coming "home" tomorrow for a visit.
[2019-03-02 15:54] VITALS: BP 175/82
--- NOTE | 2019-03-02 17:23 | Cardiology Progress Note ---
Cardiology SOAP Progress Note Subjective: Complains of dizziness, orthostatic hypotension. Objective: I&O/Vital Signs 03/02/19 03/02/19 03/02/19 03/02/19 08:21 09:00 09:25 15:54 Temp 36.8 37.0 Pulse 92 88 Resp 14 B/P (MAP) 175/82 (113) Pulse Ox 94 96 O2 Delivery Room Air Room Air Room Air FiO2 21 03/02/19 00:00 Intake Total 990 ml Balance 990 ml Constitutional: No appears stated age; AAO x 3; No apparent distress, No PERRL, No well-developed, No well-nourished, No other Respiratory: No accessory muscle use, No respiratory distress, No chest tender, No chest expansion is symmetric; chest is bilaterally symmetric; No lungs clear to percussion; lungs clear to auscultation; No crackles, No rhonchi, No rales, No stridor, No wheezing, No pleural rub, No other Cardiovascular: regular rate-rhythm, S1 and S2 Gastrointestional: soft, audible bowel sounds Extremities: normal range of motion, non-tender, normal inspection, no lower extremity edema bilateral Neurologic/Psychiatric: no motor/sensory deficits, alert, normal mood/affect, oriented x 3 Skin: normal color Results/Procedures: Labs Laboratory Tests 03/02/19 05:40: White Blood Count 10.5, Red Blood Count 3.28L, Hemoglobin 9.8L, Hematocrit 30L, Mean Corpuscular Volume 90, Mean Corpuscular Hemoglobin 30, Mean Corpuscular Hemoglobin Concent 33, Red Cell Distribution Width 14.6H, Platelet Count 301, Mean Platelet Volume 9.0, Neutrophils (%) (Auto) 69, Lymphocytes (%) (Auto) 18, Monocytes (%) (Auto) 8, Eosinophils (%) (Auto) 6, Basophils (%) (Auto) 0, Neutrophils # (Auto) 7.2, Lymphocytes # (Auto) 1.9, Monocytes # (Auto) 0.8, Eosinophils # (Auto) 0.6H, Basophils # (Auto) 0.0, Sodium Level 135, Potassium Level 4.1, Chloride Level 99, Carbon Dioxide Level 22, Anion Gap 14, Blood Urea Nitrogen 24H, Creatinine 1.48H, Estimat Glomerular Filtration Rate 34, BUN/Creatinine Ratio 16, Glucose Level 101, Calcium Level 10.1, Corrected Calcium 10.4H, Total Bilirubin 0.4, Aspartate Amino Transf (AST/SGOT) 27, Alanine Aminotransferase (ALT/SGPT) 13, Alkaline Phosphatase 85, Total Protein 6.3L, Albumin 3.6 A/P: Assessment/Dx: Recent spine surgery, Paroxysmal atrial fibrillation, Chronic kidney disease, Anemia, Hyponatremia, Syncope. Orthostatic hypotension Plan: Recent spine surgery, DVT prophylaxis. Paroxysmal atrial fibrillation, not on oral anticoagulation due to recent spine surgery. Flecainide as an outpatient. Chronic kidney disease, defer to the primary team. Anemia, transfusion. Hyponatremia, unclear etiology. Syncope. Telemetry, echocardiogram. Telemetry shows no arrhythmias. Echocardiogram done 02/26/2019 shows hyperdynamic LV function with moderate diastolic dysfunction. Dehydration is likely. Generous IV fluid is recommended. Orthostatic hypotension, start Florinef 0.1 mg daily. Follow-up with Dr. Baltazar for cardiology after discharge. Thank you for your consultation. Please call me if you have any questions. Malcom Lynn MD, FACP, FACC, FSCAI, FHRS, CCDS Interventional Cardiology Cardiac Electrophysiology Vascular Medicine and Endovascular Interventions Ludy LYNN MD Mar 02, 2019 17:23
[2019-03-02] MEDS: amLODIPine 5 MG (NORVASC) TAB PO SCH (20:03)
[2019-03-02] MEDS: GABAPENTIN 100 MG (NEURONTIN) CAP PO SCH (20:03)
[2019-03-02] MEDS: POLYETHYLENE GLYCOL 17 GM (MIRALAX) PACK PO SCH (20:04)
[2019-03-03 03:16] VITALS: BP 179/81
[2019-03-03] MEDS: HYDROcodone/APAP 5 MG/325 MG (LORTAB) TAB PO PRN ×4 (03:30→20:26)
[2019-03-03 05:42] VITALS: BP 164/76
[2019-03-03] MEDS: ALLOPURINOL 100 MG (ZYLOPRIM) TAB PO SCH (07:40)
[2019-03-03] MEDS: FLECAINIDE 100 MG (TAMBOCOR) TAB PO SCH ×2 (07:41→20:27)
[2019-03-03] MEDS: DOCUSATE SODIUM 100 MG (COLACE) CAP PO SCH ×2 (07:41→20:29)
[2019-03-03] MEDS: SENNA W/DOCUSATE (SENOKOT S) TABLET PO SCH ×2 (07:41→20:26)
[2019-03-03] MEDS: DICLOFENAC 1% GEL 100 GM (VOLTAREN) TUBE TOP SCH ×4 (07:42→20:32)
[2019-03-03] MEDS ORDERED: FLUDROCORTISONE 0.1 MG (FLORINEF) TAB PO SCH (09:00)
[2019-03-03] MEDS: BACLOFEN 10 MG (LIORESAL) TAB PO PRN ×2 (10:56→20:37)
--- NOTE | 2019-03-03 11:28 | PM&R Progress Note ---
Subjective HPI/CC On Admission Date Seen by Provider: Mar 03, 2019 Time Seen by Provider: 10:30 Subjective/Events-last exam Pain control is an issue especially at night but it was improved last night after starting Gabapentin 100mg at night Change baclofen from 5 MG every 6 hours to 5 MG every 4 hours since she asked for something to be changed Teaching patient and family coping mechanisms to help keep her mind off the pain Voltaren gel and K-pad will be provided Sodium level is now 135 on last lab check No orthostasis noted so we'll hold off on Florinef for right now Days are better than the nights Daughter at the bedside today Checked meds and labs Reviewed therapy notes Conferred with head miller of Systems General: Fatigue Musculoskeletal: back pain Objective Exam Vital Signs Vital Signs Date Time Temp Pulse Resp B/P (MAP) Pulse Ox O2 Delivery O2 Flow Rate FiO2 03/03/19 09:00 Room Air 03/03/19 05:42 78 164/76 (105) 03/03/19 03:16 36.5 18 96 03/02/19 09:25 21 Capillary Refill : Less Than 3 Seconds General Appearance: No Apparent Distress, WD/WN, Chronically ill, Obese HEENT: PERRL/EOMI, Normal ENT Inspection, Pharynx Normal Neck: Full Range of Motion, Normal Inspection, Non Tender, Supple, Carotid Bruit Respiratory: Chest Non Tender, Lungs Clear, Normal Breath Sounds, No Accessory Muscle Use, No Respiratory Distress Cardiovascular: Regular Rate, Rhythm, No Edema, No Gallop, No JVD, No Murmur, Normal Peripheral Pulses Gastrointestinal: Normal Bowel Sounds, No Organomegaly, No Pulsatile Mass, Non Tender, Soft Back: Decreased Range of Motion Extremity: Normal Capillary Refill, Normal Inspection, Normal Range of Motion (limited from back pain), Non Tender, No Calf Tenderness, No Pedal Edema Neurologic/Psychiatric: Alert, Oriented x3, No Motor/Sensory Deficits, imaging technician II- XII Norm as Tested, Depressed Affect, Motor Weakness (motor weakness of lower legs from spinal surgery 3/) Skin: Normal Color, Warm/Dry Lymphatic: No Adenopathy Results/Procedures Lab Patient resulted labs reviewed. FIM Transfers Therapy Code Descriptions/Definitions Functional [place] Measure: 0=Not Assessed/NA 4=Minimal Assistance 1=Total Assistance 5=Supervision or Setup 2=Maximal Assistance 6=Modified [place] 3=Moderate Assistance 7=Complete IndependenceSCALE: Activities may be completed with or without assistive devices. 2-Nmmseycyrg-zkqbpws completes the activity by him/herself with no assistance from a helper. 5-Set-up or Clean-up Assistance-helper sets up or cleans up; patient completes activity. [place] assists only prior to or following the activity. 4-Supervision or Touching Assistance-helper provides verbal cues and/or touching/steadying and/or contact guard assistance as patient completes activity. Assistance may be provided throughout the activity or intermittently. 3-Partial/Moderate Assistance-helper does LESS THAN HALF the effort. [place] lifts, holds or supports trunk or limbs, but provides less than half the effort. 2-Substantial/Maximal Assistance-helper does MORE THAN HALF the effort. [place] lifts or holds trunk or limbs and provides more than half the effort. 5-Heseqjrmr-lpitcf does ALL the effort. Patient does none of the effort to co mplete the activity. Or, the assistance of 2 or more helpers is required for the patient to complete the activity. If activity was not attempted, code reason: 7-Patient Refused. 9-Not Applicable-not attempted and the patient did not perform the activity before the current illness, exacerbation or injury. 10-Not Attempted due to Environmental Limitations-(lack of equipment, weather restraints, etc.). 88-Not Attempted due to Medical Conditions or Safety Concerns. Roll Left to Right (QC): 5 Sit to Lying (QC): 3 Sit to Stand (QC): 4 Chair/Nyy-na-Kgufi Xfer(QC): 4 Car Transfer (QC): 2 Gait Training Does the Patient Walk?: Yes Walk 10 feet (QC): 4 Walk 50 ft with 2 Turns(QC): 4 Walk 150 ft (QC): 4 Walking 10ft/uneven surface-QC: 3 Gait Persons Needed: 1 Gait Assistive Device: FWW Wheelchair Training Does the Pt Use a Wheelchair?: No Stair Training #of Steps: 1 1 Step (curb) (QC): 3 4 Steps (QC): 88 12 Steps (QC): 88 Balance Picking up an Object (QC): 88 ADL-Treatment Eating (QC): 7 Oral Hygiene (QC): 88 Shower/Bathe Self (QC): 3 (Min assist in stance to was erlin area. Assist to dry between toes. Pt. able to wash all other parts in shower with SBA and LH sponge.) Upper Body Dressing (QC): 3 (Min assist to doff shirt. SBA to don shirt. SBA to doff brace. Max assist to don brace.) Lower Body Dressing (QC): 2 (Pt. attempted to use DS.) On/Off Footwear (QC): 2 (OT demonstrated sock aide. OT donned sock on sock aide and pt. able to put it on. OT had to don other sock as pt. was light headed in shower.) Toileting Hygiene (QC): 2 Toilet Transfer (QC): 3 (Min assist.) Assessment/Plan Assessment and Plan Assess & Plan/Chief Complaint Assessment: Status post lumbar spine decompression surgery POD # [address] Delong at [facility] in [place] Syncope Orthostasis episodes in the past chronic HTN labile levels Renal insufficiency improved today after fluids Hyponatremia improved with fluid restriction and s/p normal saline IV fluids 133 Saturday Anemia s/p 1 unit of blood at [facility] and received 1 unit Saturday since hemoglobin 7.1 and has cardiac risk factors today 9.8 Dehydration resolved with IV fluids Chronic AF Plan: Home meds except Plavix due to recent spine surgery SCD's Cardiology evaluation Fluid restriction 1500 today increased from 1000 Venofer DC after 1 dose since IV infiltrated 1 unit of blood Saturday with Lasix afterwards Inpatient rehabilitation to continue recovery Hold Florinef for right now and monitor for presence of orthostasis since it does not appear to be the case (1) Status post lumbar spine surgery for decompression of spinal cord (2) Iron deficiency (3) Anemia (4) Anxiety (5) Hyponatremia (6) Renal insufficiency (7) Syncope (8) Hypertension (9) Orthostasis (10) Constipation (11) Transfusion of blood during current hospitalisation PIERCE JAMES DO Mar 03, 2019 11:28
--- NOTE | 2019-03-03 12:10 | Occupational Ther Daily Note ---
OT Current Status-Daily Note Subjective Pt. reports pain in back, but does not state a pain level. Has already had pain medication and states that her pain is better than yesterday. Appearance Pt. is up in chair. Agrees to work with OT. Mental Status/Objective Patient Orientation: Person, Place, Time, Situation ADL-Treatment Therapy Code Descriptions/Definitions Functional [place] Measure: 0=Not Assessed/NA 4=Minimal Assistance 1=Total Assistance 5=Supervision or Setup 2=Maximal Assistance 6=Modified [place] 3=Moderate Assistance 7=Complete IndependenceSCALE: Activities may be completed with or without assistive devices. 7-Zpgugsvgon-kremrys completes the activity by him/herself with no assistance from a helper. 5-Set-up or Clean-up Assistance-helper sets up or cleans up; patient completes activity. [place] assists only prior to or following the activity. 4-Supervision or Touching Assistance-helper provides verbal cues and/or touching/steadying and/or contact guard assistance as patient completes activity. Assistance may be provided throughout the activity or intermittently. 3-Partial/Moderate Assistance-helper does LESS THAN HALF the effort. [place] lifts, holds or supports trunk or limbs, but provides less than half the effort. 2-Substantial/Maximal Assistance-helper does MORE THAN HALF the effort. [place] lifts or holds trunk or limbs and provides more than half the effort. 4-Yhvcpavcr-iliijx does ALL the effort. Patient does none of the effort to complete the activity. Or, the assistance of 2 or more helpers is required for the patient to complete the activity. If activity was not attempted, code reason: 7-Patient Refused. 9-Not Applicable-not attempted and the patient did not perform the activity before the current illness, exacerbation or injury. 10-Not Attempted due to Environmental Limitations-(lack of equipment, weather restraints, etc.). 88-Not Attempted due to Medical Conditions or Safety Concerns. Oral Hygiene (QC): 5 (Set up seated at sink to brush teeth/comb hair.) Shower/Bathe Self (QC): 7 (Pt. declines bathing this date.) Upper Body Dressing (QC): 4 (SBA to doff/don sweatshirt and brace.) Lower Body Dressing (QC): 4 (SBA and cues to don underwear and pants with AE. CGA in stance to don over hips.) On/Off Footwear: 3 (Assist to don OANH hose. OT placed elastic laces in shoes and pt. able to don them with LH shoe horn with min assist. Declines socks.) Toileting Hygiene (QC): 4 (CGA to cleanse front. Pt. has not had BM, but OT did provide toilet tongs for when pt. does.) Toilet Transfer (QC): 4 (CGA) After ADLs in room, pt. agrees to ambulate to therapy gym. Ambulated with walker and CGA. Completed 20 minutes on arm bike at very minimal resistance, to increase overall endurance. Pt. is encouraged to take rest breaks as needed, but does not as she engages in trivia about body mechanics/ADLs with this therapist. After arm bike activity, pt. ambulates back to room with walker. Transferred to chair in room with CGA. Education OT Patient Education: Correct positioning, Exercise program, Modified ADL techniques, Progress toward Goal/Update tx plan, Purpose of tx/functional activities, Reviewed precautions, Rehab process, Transfer techniques, Use of adapted equipment Teaching Recipient: Patient Teaching Methods: Demonstration, Discussion Response to Teaching: Verbalize Understanding, Return Demonstration OT Alf Goals Breaker Layer Goals Time Frame: Mar 14, 2019 Eating (QC): 6 Oral Hygiene (QC): 6 Toileting Hygiene (QC): 6 Shower/Bathe Self (QC): 6 Upper Body Dressing (QC): 6 Lower Body Dressing (QC): 6 On/Off Footwear (QC): 6 Additional Goals: 1-Demonstrate ADL Tasks, 2-Verbalize Understanding, 3- ImproveStrength/Dirk 1=Demonstrate adherence to instructed precautions during ADL tasks. 2=Patient will verbalize/demonstrate understanding of assistive devices/modifications for ADL. 3=Patient will improve strength/tolerance for activity to enable patient to perform ADL's. OT Education/Plan Problem List/Assessment Assessment: Decreased Activ Tolerance, Dependent Transfers, Impaired Funct Balance, Impaired I ADL's, Impaired Self-Care Skills Discharge Recommendations Plan/Recommendations: Continue POC Therapy Discharge Recommendati: Post Acute OT Equpiment Recommendations-D/C: Hip Kit Treatment Plan/Plan of Care Treatment,Training & Education: Yes Patient would benefit from OT for education, treatment and training to promote independence in ADL's, mobility, safety and/or upper extremity function for ADL's. Plan of Care: ADL Retraining, Caregiver Training, Functional Mobility, Group Exercise/Act as Ind, UE Funct Exercise/Act Treatment Duration: Mar 14, 2019 Frequency: At least 5 of 7 days/Wk (IRF) Estimated Hrs Per Day: 1.5 hours per day Agreement: Yes Rehab Potential: Good Time/GCodes Start Time: 08:15 Stop Time: 09:45 Total Time Billed (hr/min): 90 Billed Treatment Time 1, ADL x 60minutes, Ex x 15minutes, FA x 15minutes RADHA JACOME OT Mar 03, 2019 12:10
--- NOTE | 2019-03-03 12:15 | Physical Therapy Daily Note ---
PT Daily Note-Current Subjective Pt sitting in recliner visiting with family upon arrival. Pt agrees to PT despite reporting pain, pain med previously given. Pain Numeric Pain Scale: 10-Worst Possible Pain Location Body Site: Back Pain Description: Ache, Burning, Sharp Mental Status Patient Orientation: Person, Place, Time, Situation Attachments: Other-See Comments (Lumbar back brace) Transfers SCALE: Activities may be completed with or without assistive devices. 0-Zemodplcmy-eglemxo completes the activity by him/herself with no assistance from a helper. 5-Set-up or Clean-up Assistance-helper sets up or cleans up; patient completes activity. [place] assists only prior to or following the activity. 4-Supervision or Touching Assistance-helper provides verbal cues and/or touching/steadying and/or contact guard assistance as patient completes activity. Assistance may be provided throughout the activity or intermittently. 3-Partial/Moderate Assistance-helper does LESS THAN HALF the effort. [place] lifts, holds or supports trunk or limbs, but provides less than half the effort. 2-Substantial/Maximal Assistance-helper does MORE THAN HALF the effort. [place] lifts or holds trunk or limbs and provides more than half the effort. 2-Eazjtrsyu-gaegbt does ALL the effort. Patient does none of the effort to complete the activity. Or, the assistance of 2 or more helpers is required for the patient to complete the activity. If activity was not attempted, code reason: 7-Patient Refused. 9-Not Applicable-not attempted and the patient did not perform the activity before the current illness, exacerbation or injury. 10-Not Attempted due to Environmental Limitations-(lack of equipment, weather restraints, etc.). 88-Not Attempted due to Medical Conditions or Safety Concerns. Roll Left & Right (QC): 3 Sit to Lying (QC): 4 Lying to Sitting/Side of Bed(Q: 3 Sit to Stand (QC): 4 Toilet Transfer (QC): 4 Weight Bearing Right Lower Extremity: Right Full Weight Bearing Left Lower Extremity: Left Full Weight Bearing Gait Training Does the Patient Walk?: Yes Distance: 150' x2 Walk 10 feet (QC): 5 Walk 50 ft with 2 Turns(QC): 5 Walk 150 ft (QC): 5 Gait Persons Needed: 1 Gait Assistive Device: FWW Pt given VC to walk w/in FWW as well as internally rotate L LE. Exercises Supine Ex: Ankle pumps, Heel Slides Supine Reps: 20 Seated Therapy Exercises: Ankle pumps, Long arc quads, Hip flexion, Kicking activity, Hip abd/add Seated Reps: 20 Treatments Pt transfers from recliner to standing and ambulates in hallway. Pt attempts to complete Supine Ex but cannot tolerate pain laying Supine even with bolster under knees. Pt tries clamshells and transfers to sitting EOM. Pt completes Seated Ex at EOM. Pt discusses pain and progress as well as how long she can expect to be on ARU and what happens after D/C. Pt again ambulates in hallway before returning to room to use restroom before returning to recliner for lunch. Assessment Current Status: Good Progress Pt is limited by pain at this time which affects activity tolerance. PT Short Term Goals Short Term Goals Time Frame: Mar 07, 2019 Roll Left & Right: 6 Sit to lyin Lying to sitting on side of be: 6 Sit to stand: 6 PT Ring Sewer Goals Ring Sewer Goals PT Ring Sewer Goals Time Frame: Mar 14, 2019 Roll Left & Right (QC): 6 Sit to Lying (QC): 6 Lying-Sitting on Side/Bed(QC): 6 Sit to Stand (QC): 6 Chair/Osa-ed-Gtohe Xfer(QC): 6 Toilet Transfer (QC): 6 Car Transfer (QC): 6 Does the Patient Walk: Yes Walk 10 feet (QC): 6 Walk 50ft with 2 Turns (QC): 6 Walk 150 ft (QC): 6 Walking 10ft on Uneven Surface: 6 1 Step (curb) (QC): 6 4 Steps (QC): 4 12 Steps (QC): 4 Picking up an Object (QC): 88 Does the Pt use WC or Scooter?: No Wheel 50 feet with 2 turns (QC: 9 Wheel 150 feet: 9 PT Plan Problem List Problem List: Activity Tolerance, Functional Strength, Gait Treatment/Plan Treatment Plan: Continue Plan of Care Treatment Plan: Bed Mobility, Education, Functional Activity Dirk, Functional Strength, Group Therapy, Gait, Safety, Therapeutic Exercise, Transfers Treatment Duration: Mar 14, 2019 Frequency: Modified Program (IRF) Estimated Hrs Per Day: 1.5 hours per day Patient and/or Family Agrees t: Yes Safety Risks/Education Patient Education: Gait Training, Transfer Techniques, Correct Positioning, Safety Issues Teaching Recipient: Patient Teaching Methods: Discussion Response to Teaching: Verbalize Understanding Time/GCodes Time In: 1100 Time Out: 1200 Total Billed Treatment Time: 60 Total Billed Treatment 1, GT (20m), EX (15m) & FA x2 (25m) TRINI ACEVES CLAIMS ACCOUNT MANAGER Mar 03, 2019 12:15
--- NOTE | 2019-03-03 15:08 | Physical Therapy Daily Note ---
PT Daily Note-Current Subjective Pt reclined back in recliner asleep upon arrival. Granddaughter is present in room. Pt agrees to PT. Pain Numeric Pain Scale: 8 Location Body Site: Back Pain Description: Ache, Burning Mental Status Patient Orientation: Person, Place, Time, Situation Attachments: Other-See Comments (Lumbar back brace) Transfers SCALE: Activities may be completed with or without assistive devices. 7-Ebnxrhnbje-kuobdtj completes the activity by him/herself with no assistance from a helper. 5-Set-up or Clean-up Assistance-helper sets up or cleans up; patient completes activity. [place] assists only prior to or following the activity. 4-Supervision or Touching Assistance-helper provides verbal cues and/or touching/steadying and/or contact guard assistance as patient completes activity. Assistance may be provided throughout the activity or intermittently. 3-Partial/Moderate Assistance-helper does LESS THAN HALF the effort. [place] lifts, holds or supports trunk or limbs, but provides less than half the effort. 2-Substantial/Maximal Assistance-helper does MORE THAN HALF the effort. [place] lifts or holds trunk or limbs and provides more than half the effort. 1-Rmeehwyfz-htkkcd does ALL the effort. Patient does none of the effort to complete the activity. Or, the assistance of 2 or more helpers is required for the patient to complete the activity. If activity was not attempted, code reason: 7-Patient Refused. 9-Not Applicable-not attempted and the patient did not perform the activity before the current illness, exacerbation or injury. 10-Not Attempted due to Environmental Limitations-(lack of equipment, weather restraints, etc.). 88-Not Attempted due to Medical Conditions or Safety Concerns. Sit to Stand (QC): 4 Toilet Transfer (QC): 4 Weight Bearing Right Lower Extremity: Right Full Weight Bearing Left Lower Extremity: Left Full Weight Bearing Gait Training Does the Patient Walk?: Yes Distance: 15' Walk 10 feet (QC): 4 Gait Persons Needed: 1 Gait Assistive Device: FWW Exercises Supine Ex: Ankle pumps, Quad Set, Glut sets, Heel Slides Supine Reps: 15 Treatments Pt completes Supine Ex in recliner before needing to use restroom. Pt returns to recliner to rest at end of Rx. Pt has all needs met, call light in hand. SW arrives at end of Rx. Assessment Current Status: Good Progress Pt is limited by pain at this time. PT Short Term Goals Short Term Goals Time Frame: Mar 07, 2019 Roll Left & Right: 6 Sit to lyin Lying to sitting on side of be: 6 Sit to stand: 6 PT Supervisor Fur Floor Worker Goals Supervisor Fur Floor Worker Goals PT Supervisor Fur Floor Worker Goals Time Frame: Mar 14, 2019 Roll Left & Right (QC): 6 Sit to Lying (QC): 6 Lying-Sitting on Side/Bed(QC): 6 Sit to Stand (QC): 6 Chair/Jor-hq-Fitpm Xfer(QC): 6 Toilet Transfer (QC): 6 Car Transfer (QC): 6 Does the Patient Walk: Yes Walk 10 feet (QC): 6 Walk 50ft with 2 Turns (QC): 6 Walk 150 ft (QC): 6 Walking 10ft on Uneven Surface: 6 1 Step (curb) (QC): 6 4 Steps (QC): 4 12 Steps (QC): 4 Picking up an Object (QC): 88 Does the Pt use WC or Scooter?: No Wheel 50 feet with 2 turns (QC: 9 Wheel 150 feet: 9 PT Plan Problem List Problem List: Activity Tolerance, Functional Strength, Gait, Transfer Treatment/Plan Treatment Plan: Continue Plan of Care Treatment Plan: Bed Mobility, Education, Functional Activity Dirk, Functional Strength, Group Therapy, Gait, Safety, Therapeutic Exercise, Transfers Treatment Duration: Mar 14, 2019 Frequency: Modified Program (IRF) Estimated Hrs Per Day: 1.5 hours per day Patient and/or Family Agrees t: Yes Safety Risks/Education Patient Education: Gait Training, Transfer Techniques, Issued Written HEP, Correct Positioning, Reviewed Don/Doff Brace, Safety Issues Teaching Recipient: Patient Teaching Methods: Discussion Response to Teaching: Verbalize Understanding Time/GCodes Time In: 1415 Time Out: 1445 Total Billed Treatment Time: 30 Total Billed Treatment 1, FA (15m) & EX (15m) TRINI ACEVES PTA Mar 03, 2019 15:08
--- NOTE | 2019-03-03 15:13 | Cardiology Progress Note ---
Cardiology SOAP Progress Note Subjective: No further hypotensive episodes. Objective: I&O/Vital Signs 03/03/19 03/03/19 03/03/19 03:16 05:42 09:00 Temp 36.5 Pulse 89 78 Resp 18 B/P (MAP) 179/81 (113) 164/76 (105) Pulse Ox 96 O2 Delivery Room Air Room Air 03/03/19 00:00 Intake Total 830 ml Balance 830 ml Constitutional: No appears stated age; AAO x 3; No apparent distress, No PERRL, No well-developed, No well-nourished, No other Respiratory: No accessory muscle use, No respiratory distress, No chest tender, No chest expansion is symmetric; chest is bilaterally symmetric; No lungs clear to percussion; lungs clear to auscultation; No crackles, No rhonchi, No rales, No stridor, No wheezing, No pleural rub, No other Cardiovascular: regular rate-rhythm, S1 and S2 Gastrointestional: soft, audible bowel sounds Extremities: normal range of motion, non-tender, normal inspection, no lower extremity edema bilateral Neurologic/Psychiatric: no motor/sensory deficits, alert, normal mood/affect, oriented x 3 Skin: normal color A/P: Assessment/Dx: Recent spine surgery, Paroxysmal atrial fibrillation, Chronic kidney disease, Anemia, Hyponatremia, Syncope. Orthostatic hypotension Plan: Recent spine surgery, DVT prophylaxis. Paroxysmal atrial fibrillation, not on oral anticoagulation due to recent spine surgery. Flecainide as an outpatient. Chronic kidney disease, defer to the primary team. Anemia, transfusion. Hyponatremia, unclear etiology. Syncope. Telemetry, echocardiogram. Telemetry shows no arrhythmias. Echocardiogram done 02/26/2019 shows hyperdynamic LV function with moderate diastolic dysfunction. Dehydration is likely. Generous IV fluid is recommended. Orthostatic hypotension, start Florinef 0.1 mg daily. Follow-up with Dr. Baltazar for cardiology after discharge. Thank you for your consultation. Please call me if you have any questions. Malcom Lynn MD, FACP, FACC, FSCAI, FHRS, CCDS Interventional Cardiology Cardiac Electrophysiology Vascular Medicine and Endovascular Interventions Ludy LYNN MD Mar 03, 2019 15:13
--- NOTE | 2019-03-03 16:38 | NUR ---
WEEKLY TEAM CONFERENCE SUMMARY CONCURRENT NOTE Reviewed with patient and her granddaughter Ruth Ann, patient is in agreement to a continued stay with review on 03/11/19. DME: Patient now reports she needs a FWW, she indicates again her choice agency to be [facility]. She expressed interest in a wheelchair and screenplay writer explained that Medicare would not pay for a FWW and a wheelchair because wheelchair approval would be defined by diagnosis, functional need, and specific ambulation deficits. Patient wanted the wheelchair for convenience for outings, screenplay writer encouraged patient/family to explore transport chair instead. MEALS: Patient is interested in meal delivery from the [facility] in [place], she will followup up independently. Will explore contact information. DISABLED PLACARD: Temporary placard application will be provided for patient for her recovery period. She understands she will need to take it to her motor vehicle dept. in [place]. Patient showing improvement in overall movement and pain control.
[2019-03-03 18:00] VITALS: BP 167/77
[2019-03-03] MEDS: POLYETHYLENE GLYCOL 17 GM (MIRALAX) PACK PO SCH (20:29)
[2019-03-03] MEDS: amLODIPine 5 MG (NORVASC) TAB PO SCH (20:29)
[2019-03-03] MEDS: GABAPENTIN 100 MG (NEURONTIN) CAP PO SCH (20:29)
[2019-03-04] MEDS: HYDROcodone/APAP 5 MG/325 MG (LORTAB) TAB PO PRN ×5 (00:53→21:43)
[2019-03-04] MEDS: BACLOFEN 10 MG (LIORESAL) TAB PO PRN ×3 (04:59→16:23)
[2019-03-04 05:52] VITALS: BP 173/91
[2019-03-04] MEDS: DOCUSATE SODIUM 100 MG (COLACE) CAP PO SCH ×2 (09:07→21:44)
[2019-03-04] MEDS: SENNA W/DOCUSATE (SENOKOT S) TABLET PO SCH ×2 (09:07→21:43)
[2019-03-04] MEDS: FLECAINIDE 100 MG (TAMBOCOR) TAB PO SCH ×2 (10:33→21:43)
[2019-03-04] MEDS: ALLOPURINOL 100 MG (ZYLOPRIM) TAB PO SCH (10:33)
[2019-03-04] MEDS: DICLOFENAC 1% GEL 100 GM (VOLTAREN) TUBE TOP SCH ×4 (10:40→21:43)
--- NOTE | 2019-03-04 11:53 | PM&R Progress Note ---
Subjective HPI/CC On Admission Date Seen by Provider: Mar 04, 2019 Time Seen by Provider: 12:00 Subjective/Events-last exam Pain control is an issue especially at night and it was bad last night after starting Gabapentin 100mg at night so will increase to 300mg PO QHS Changed baclofen from 5 MG every 6 hours to 5 MG every 4 hours since she asked for something to be changed yesterday Teaching patient and family coping mechanisms to help keep her mind off the pain Voltaren gel and K-pad will continue to be provided Sodium level is now 135 on last lab check No orthostasis noted so we'll hold off on Florinef for right now BM this morning Days are better than the nights Daughter at the bedside today Checked meds and labs Reviewed therapy notes Conferred with remote pilot operator of Systems Musculoskeletal: back pain Objective Exam Vital Signs Vital Signs Date Time Temp Pulse Resp B/P (MAP) Pulse Ox O2 Delivery O2 Flow Rate FiO2 03/04/19 16:00 36.8 82 14 180/85 (116) 98 Room Air 03/02/19 09:25 21 Capillary Refill : Less Than 3 Seconds General Appearance: No Apparent Distress, WD/WN, Chronically ill, Obese HEENT: PERRL/EOMI, Normal ENT Inspection, Pharynx Normal Neck: Full Range of Motion, Normal Inspection, Non Tender, Supple, Carotid Bruit Respiratory: Chest Non Tender, Lungs Clear, Normal Breath Sounds, No Accessory Muscle Use, No Respiratory Distress Cardiovascular: Regular Rate, Rhythm, No Edema, No Gallop, No JVD, No Murmur, Normal Peripheral Pulses Gastrointestinal: Normal Bowel Sounds, No Organomegaly, No Pulsatile Mass, Non Tender, Soft Back: Decreased Range of Motion Extremity: Normal Capillary Refill, Normal Inspection, Normal Range of Motion (limited from back pain), Non Tender, No Calf Tenderness, No Pedal Edema Neurologic/Psychiatric: Alert, Oriented x3, No Motor/Sensory Deficits, offset printing pressmen II- XII Norm as Tested, Depressed Affect, Motor Weakness (motor weakness of lower legs from spinal surgery 3/5) Skin: Normal Color, Warm/Dry Lymphatic: No Adenopathy Results/Procedures Lab Patient resulted labs reviewed. FIM Transfers Therapy Code Descriptions/Definitions Functional [place] Measure: 0=Not Assessed/NA 4=Minimal Assistance 1=Total Assistance 5=Supervision or Setup 2=Maximal Assistance 6=Modified [place] 3=Moderate Assistance 7=Complete IndependenceSCALE: Activities may be completed with or without assistive devices. 6-Syczlbohpg-ebkfrmo completes the activity by him/herself with no assistance from a helper. 5-Set-up or Clean-up Assistance-helper sets up or cleans up; patient completes activity. [place] assists only prior to or following the activity. 4-Supervision or Touching Assistance-helper provides verbal cues and/or touching/steadying and/or contact guard assistance as patient completes activity. Assistance may be provided throughout the activity or intermittently. 3-Partial/Moderate Assistance-helper does LESS THAN HALF the effort. [place] lifts, holds or supports trunk or limbs, but provides less than half the effort. 2-Substantial/Maximal Assistance-helper does MORE THAN HALF the effort. [place] lifts or holds trunk or limbs and provides more than half the effort. 4-Jufofozeu-ggsyof does ALL the effort. Patient does none of the effort to complete the activity. Or, the assistance of 2 or more helpers is required for the patient to complete the activity. If activity was not attempted, code reason: 7-Patient Refused. 9-Not Applicable-not attempted and the patient did not perform the activity before the current illness, exacerbation or injury. 10-Not Attempted due to Environmental Limitations-(lack of equipment, weather restraints, etc.). 88-Not Attempted due to Medical Conditions or Safety Concerns. Roll Left to Right (QC): 3 Sit to Lying (QC): 4 Sit to Stand (QC): 4 Chair/Aju-kz-Sydoo Xfer(QC): 4 Car Transfer (QC): 2 Gait Training Does the Patient Walk?: Yes Distance: 15' Walk 10 feet (QC): 4 Walk 50 ft with 2 Turns(QC): 5 Walk 150 ft (QC): 5 Walking 10ft/uneven surface-QC: 3 Gait Persons Needed: 1 Gait Assistive Device: FWW Wheelchair Training Does the Pt Use a Wheelchair?: No Stair Training #of Steps: 1 1 Step (curb) (QC): 3 4 Steps (QC): 88 12 Steps (QC): 88 Balance Picking up an Object (QC): 88 ADL-Treatment Eating (QC): 7 Oral Hygiene (QC): 5 (Set up seated at sink to brush teeth/comb hair.) Shower/Bathe Self (QC): 7 (Pt. declines bathing this date.) Upper Body Dressing (QC): 4 (SBA to doff/don sweatshirt and brace.) Lower Body Dressing (QC): 4 (SBA and cues to don underwear and pants with AE. CGA in stance to don over hips.) On/Off Footwear (QC): 3 (Assist to don OANH hose. OT placed elastic laces in shoes and pt. able to don them with LH shoe horn with min assist. Declines socks.) Toileting Hygiene (QC): 4 (CGA to cleanse front. Pt. has not had BM, but OT did provide toilet tongs for when pt. does.) Toilet Transfer (QC): 4 (CGA) Assessment/Plan Assessment and Plan Assess & Plan/Chief Complaint Assessment: Status post lumbar spine decompression surgery POD # [address] Delong at [facility] in [place] Syncope Orthostasis episodes in the past chronic HTN labile levels Renal insufficiency improved today after fluids Hyponatremia improved with fluid restriction and s/p normal saline IV fluids 133 Saturday Anemia s/p 1 unit of blood at [facility] and received 1 unit Saturday since hemoglobin 7.1 and has cardiac risk factors Saturday 9.8 Dehydration resolved with IV fluids Chronic AF Plan: Home meds except Plavix due to recent spine surgery SCD's Cardiology evaluation Fluid restriction 1500 Saturday increased from 1000 Venofer DC after 1 dose since IV infiltrated 1 unit of blood Saturday with Lasix afterwards Inpatient rehabilitation to continue recovery Hold Florinef for right now and monitor for presence of orthostasis since it does not appear to be the case (1) Status post lumbar spine surgery for decompression of spinal cord (2) Iron deficiency (3) Anemia (4) Anxiety (5) Hyponatremia (6) Renal insufficiency (7) Syncope (8) Hypertension (9) Orthostasis (10) Constipation (11) Transfusion of blood during current hospitalisation PIERCE JAMES DO Mar 04, 2019 11:53
--- NOTE | 2019-03-04 11:59 | Physical Therapy Daily Note ---
PT Daily Note-Current Subjective Pt. agrees to Rx and states she is better but still having some back pain. Pain Numeric Pain Scale: 6 Location: Medial Location Body Site: Back Pain Description: Ache Mental Status Patient Orientation: Normal For Age Attachments: Other-See Comments (back brace) Transfers SCALE: Activities may be completed with or without assistive devices. 1-Cvzugdkirq-mraxiyw completes the activity by him/herself with no assistance from a helper. 5-Set-up or Clean-up Assistance-helper sets up or cleans up; patient completes activity. [place] assists only prior to or following the activity. 4-Supervision or Touching Assistance-helper provides verbal cues and/or touching/steadying and/or contact guard assistance as patient completes activity. Assistance may be provided throughout the activity or intermittently. 3-Partial/Moderate Assistance-helper does LESS THAN HALF the effort. [place] lifts, holds or supports trunk or limbs, but provides less than half the effort. 2-Substantial/Maximal Assistance-helper does MORE THAN HALF the effort. [place] lifts or holds trunk or limbs and provides more than half the effort. 7-Uqqzamsmn-derurx does ALL the effort. Patient does none of the effort to complete the activity. Or, the assistance of 2 or more helpers is required for the patient to complete the activity. If activity was not attempted, code reason: 7-Patient Refused. 9-Not Applicable-not attempted and the patient did not perform the activity before the current illness, exacerbation or injury. 10-Not Attempted due to Environmental Limitations-(lack of equipment, weather restraints, etc.). 88-Not Attempted due to Medical Conditions or Safety Concerns. Roll Left & Right (QC): 5 Sit to Lying (QC): 4 Lying to Sitting/Side of Bed(Q: 4 Sit to Stand (QC): 5 Chair/Psd-th-Rszfz Xfer(QC): 5 Toilet Transfer (QC): 5 Weight Bearing Right Lower Extremity: Right Full Weight Bearing Left Lower Extremity: Left Full Weight Bearing Gait Training Does the Patient Walk?: Yes Walk 10 feet (QC): 5 Walk 50 ft with 2 Turns(QC): 5 Walk 150 ft (QC): 5 Gait Persons Needed: 1 Gait Assistive Device: FWW improved pattern, no norbert LOB Exercises Supine Ex: Ankle pumps, Quad Set, Rolling, Glut sets, Heel Slides, Short Arc Quads, Scooting, Hip abd/add Supine Reps: 20 Seated Therapy Exercises: Ankle pumps, Sit to stand, Long arc quads, Hip abd/add Seated Reps: 15 Assessment Current Status: Good Progress PT Short Term Goals Short Term Goals Time Frame: Mar 07, 2019 Roll Left & Right: 6 Sit to lyin Lying to sitting on side of be: 6 Sit to stand: 6 PT Alf Goals Washer Engineer Goals PT Alf Goals Time Frame: Mar 14, 2019 Roll Left & Right (QC): 6 Sit to Lying (QC): 6 Lying-Sitting on Side/Bed(QC): 6 Sit to Stand (QC): 6 Chair/Tuz-gv-Nlnqg Xfer(QC): 6 Toilet Transfer (QC): 6 Car Transfer (QC): 6 Does the Patient Walk: Yes Walk 10 feet (QC): 6 Walk 50ft with 2 Turns (QC): 6 Walk 150 ft (QC): 6 Walking 10ft on Uneven Surface: 6 1 Step (curb) (QC): 6 4 Steps (QC): 4 12 Steps (QC): 4 Picking up an Object (QC): 88 Does the Pt use WC or Scooter?: No Wheel 50 feet with 2 turns (QC: 9 Wheel 150 feet: 9 PT Plan Treatment/Plan Treatment Plan: Continue Plan of Care Treatment Plan: Bed Mobility, Education, Functional Activity Dirk, Functional Strength, Group Therapy, Gait, Safety, Therapeutic Exercise, Transfers Treatment Duration: Mar 14, 2019 Frequency: Modified Program (IRF) Estimated Hrs Per Day: 1.5 hours per day Patient and/or Family Agrees t: Yes Safety Risks/Education Patient Education: Gait Training, Transfer Techniques, Correct Positioning, Reviewed Don/Doff Brace, Disease Process, Safety Issues Teaching Recipient: Patient Teaching Methods: Demonstration, Discussion Response to Teaching: Verbalize Understanding, Return Demonstration, Reinforcement Needed Time/GCodes Time In: 1100 Time Out: 1200 Total Billed Treatment Time: 60 Total Billed Treatment 1,FA25m,GT15m,EX20m GINA MCMAHON THERAPIST Mar 04, 2019 11:59
--- NOTE | 2019-03-04 12:08 | Occupational Ther Daily Note ---
OT Current Status-Daily Note Subjective Pt agreeable to treatment this morning. Pt reports back pain, states she already had pain medication. ADL-Treatment Pt in restroom when therapist arrives. Pt requires assist for thorough toileting hygiene. Sit to stand from toilet with CGA. Transfer to walk in shower using grab bars. Pt doffed brace and shirt without assist. Used dressing stick to doff lower body clothing. Seated bathing completed using hand held shower and long handled sponge. Pt requires assist to wash buttocks and to dry lower legs/feet. Don pullover shirt and brace with set up. Pt used tray line worker to thread bilateral LE into underwear and pants. Stood with CGA for balance during pant hike. Pt donned socks with min assist using sock aid. Combed hair with set up. Pt requires increased time for ADL tasks and rest breaks as needed secondary to fatigue and pain. Pt transferred to EOB. Sit to supine with assist for LE. Pt resting in bed with needs met after session. Therapy Code Descriptions/Definitions Functional [place] Measure: 0=Not Assessed/NA 4=Minimal Assistance 1=Total Assistance 5=Supervision or Setup 2=Maximal Assistance 6=Modified [place] 3=Moderate Assistance 7=Complete IndependenceSCALE: Activities may be completed with or without assistive devices. 3-Zhonpjqzej-zerifrj completes the activity by him/herself with no assistance from a helper. 5-Set-up or Clean-up Assistance-helper sets up or cleans up; patient completes activity. [place] assists only prior to or following the activity. 4-Supervision or Touching Assistance-helper provides verbal cues and/or touching/steadying and/or contact guard assistance as patient completes activity. Assistance may be provided throughout the activity or intermittently. 3-Partial/Moderate Assistance-helper does LESS THAN HALF the effort. [place] lifts, holds or supports trunk or limbs, but provides less than half the effort. 2-Substantial/Maximal Assistance-helper does MORE THAN HALF the effort. [place] lifts or holds trunk or limbs and provides more than half the effort. 5-Zkrmocavi-bpggia does ALL the effort. Patient does none of the effort to complete the activity. Or, the assistance of 2 or more helpers is required for the patient to complete the activity. If activity was not attempted, code reason: 7-Patient Refused. 9-Not Applicable-not attempted and the patient did not perform the activity before the current illness, exacerbation or injury. 10-Not Attempted due to Environmental Limitations-(lack of equipment, weather restraints, etc.). 88-Not Attempted due to Medical Conditions or Safety Concerns. Shower/Bathe Self (QC): 3 Upper Body Dressing (QC): 5 Lower Body Dressing (QC): 4 On/Off Footwear: 3 Toilet Transfer (QC): 4 Education OT Patient Education: Modified ADL techniques Teaching Recipient: Patient Teaching Methods: Demonstration, Discussion Response to Teaching: Verbalize Understanding, Return Demonstration OT Hammerer Helper Goals Hammerer Helper Goals Time Frame: Mar 14, 2019 Eating (QC): 6 Oral Hygiene (QC): 6 Toileting Hygiene (QC): 6 Shower/Bathe Self (QC): 6 Upper Body Dressing (QC): 6 Lower Body Dressing (QC): 6 On/Off Footwear (QC): 6 Additional Goals: 1-Demonstrate ADL Tasks, 2-Verbalize Understanding, 3-ImproveStrength/Dirk 1=Demonstrate adherence to instructed precautions during ADL tasks. 2=Patient will verbalize/demonstrate understanding of assistive devices/modifications for ADL. 3=Patient will improve strength/tolerance for activity to enable patient to perf orm ADL's. OT Education/Plan Discharge Recommendations Plan/Recommendations: Continue POC Treatment Plan/Plan of Care Patient would benefit from OT for education, treatment and training to promote independence in ADL's, mobility, safety and/or upper extremity function for ADL's. Plan of Care: ADL Retraining, Caregiver Training, Functional Mobility, Group Exercise/Act as Ind, UE Funct Exercise/Act Treatment Duration: Mar 14, 2019 Frequency: At least 5 of 7 days/Wk (IRF) Estimated Hrs Per Day: 1.5 hours per day Agreement: Yes Rehab Potential: Good Time/GCodes Start Time: 08:00 Stop Time: 09:00 Total Time Billed (hr/min): 60 Billed Treatment Time 1 visit, ADLx4(60minutes) NADIRA TENA OT Mar 04, 2019 12:08
--- NOTE | 2019-03-04 14:01 | Therapy Group Daily Note ---
Therapy Daily Group Note Patient Education Topic Other List Below (setting new goals) Exercises LE Seated Exercise, Fine Motor, UE Exercise Session Ratio (pt:therapist): 4:1 Goal of Session: Other (list) (socialization and interaction , critical thinking skills) Goal Met for this Session: Yes Pt Benefit of Group: Improved Cognition, Recognition of Peers, Socialization Other/Notes Pt. participated in team/group PT OT session. Pt. ambulated to and from with FW W and SBA. Pts. all introduced themselves and shared New Yrs resolutions they had made in the past and whether they had kept them or not. Pts. enjoyed a "dirty Dorita" type gift exchange involving reading and problem solving via number drawing and reading directions on board. Pts were all required to coordinate with one another to follow directions for game , often exchanging, mo ving gifts to left or right or passing etc. Pts all participated as well in seated U&L extremity exercises. Pt. to room after group with needs met wells at hand Start Time: 12:30 Stop Time: 13:45 Total Billed Treatment Time: 75 Total Billed Treatment 1,GRP GINA MCMAHON PTA Mar 04, 2019 14:01 SHAN DON Mar 05, 2019 07:14
[2019-03-04 16:00] VITALS: BP 180/85
--- NOTE | 2019-03-04 16:26 | Cardiology Progress Note ---
Cardiology SOAP Progress Note Subjective: Back pain. No cardiac symptoms. Objective: I&O/Vital Signs 03/04/19 03/04/19 03/04/19 05:52 08:20 16:00 Temp 36.7 36.8 Pulse 91 82 Resp 20 14 B/P (MAP) 173/91 (118) 180/85 (116) Pulse Ox 95 98 O2 Delivery Room Air Room Air Room Air 03/04/19 00:00 Intake Total 900 ml Balance 900 ml Constitutional: No appears stated age; AAO x 3; No apparent distress, No PERRL, No well-developed, No well-nourished, No other Respiratory: No accessory muscle use, No respiratory distress, No chest tender, No chest expansion is symmetric; chest is bilaterally symmetric; No lungs clear to percussion; lungs clear to auscultation; No crackles, No rhonchi, No rales, No stridor, No wheezing, No pleural rub, No other Cardiovascular: regular rate-rhythm, S1 and S2 Gastrointestional: soft, audible bowel sounds Extremities: normal range of motion, non-tender, normal inspection, no lower extremity edema bilateral Neurologic/Psychiatric: no motor/sensory deficits, alert, normal mood/affect, oriented x 3 Skin: normal color A/P: Assessment/Dx: Recent spine surgery, Paroxysmal atrial fibrillation, Chronic kidney disease, Anemia, Hyponatremia, Syncope. Orthostatic hypotension Plan: Recent spine surgery, DVT prophylaxis. Paroxysmal atrial fibrillation, not on oral anticoagulation due to recent spine surgery. Flecainide as an outpatient. Chronic kidney disease, defer to the primary team. Anemia, transfusion. Hyponatremia, unclear etiology. Syncope. Telemetry, echocardiogram. Telemetry shows no arrhythmias. Echocardiogram done 02/26/2019 shows hyperdynamic LV function with moderate di astolic dysfunction. Dehydration is likely. Generous IV fluid is recommended. Orthostatic hypotension, initially I recommended to start Florinef. However the blood pressure has been stable therefore we have not given Florinef. Follow-up with Dr. Baltazar for cardiology after discharge. Thank you for your consultation. Please call me if you have any questions. Malcom Lynn MD, FACP, FACC, FSCAI, FHRS, CCDS Interventional Cardiology Cardiac Electrophysiology Vascular Medicine and Endovascular Interventions Ludy LYNN MD Mar 04, 2019 16:26
[2019-03-04] MEDS: ALPRAZolam 0.25 MG (XANAX) TAB PO PRN (17:00)
[2019-03-04] MEDS: POLYETHYLENE GLYCOL 17 GM (MIRALAX) PACK PO SCH (21:43)
[2019-03-04] MEDS: amLODIPine 5 MG (NORVASC) TAB PO SCH (21:43)
[2019-03-04] MEDS: GABAPENTIN 300 MG (NEURONTIN) CAP PO SCH (21:43)
[2019-03-04 22:02] VITALS: BP 146/79
[2019-03-05 01:22] VITALS: BP 177/84
[2019-03-05] MEDS: HYDROcodone/APAP 5 MG/325 MG (LORTAB) TAB PO PRN ×4 (02:08→20:58)
[2019-03-05 06:10] VITALS: BP 149/82
[2019-03-05] MEDS: SENNA W/DOCUSATE (SENOKOT S) TABLET PO SCH ×2 (08:11→21:02)
[2019-03-05] MEDS: DOCUSATE SODIUM 100 MG (COLACE) CAP PO SCH ×2 (08:11→20:59)
[2019-03-05] MEDS: ALLOPURINOL 100 MG (ZYLOPRIM) TAB PO SCH (08:11)
[2019-03-05] MEDS: FLECAINIDE 100 MG (TAMBOCOR) TAB PO SCH ×2 (08:11→20:59)
[2019-03-05] MEDS: BACLOFEN 10 MG (LIORESAL) TAB PO PRN ×3 (08:15→20:55)
[2019-03-05] MEDS: DICLOFENAC 1% GEL 100 GM (VOLTAREN) TUBE TOP SCH ×4 (08:17→21:00)
--- NOTE | 2019-03-05 09:36 | Physical Therapy Daily Note ---
PT Daily Note-Current Subjective Pt sitting up in recliner upon arrival. Pt agrees to PT and reports feeling as though pain is getting better although is still higher than expected at this time. Pain Numeric Pain Scale: 8 Location Body Site: Back Pain Description: Ache Mental Status Patient Orientation: Person, Place, Time, Situation Attachments: Other-See Comments (Lumbar Back Brace) Transfers SCALE: Activities may be completed with or without assistive devices. 2-Nbpeysmuhu-kzsxaug completes the activity by him/herself with no assistance from a helper. 5-Set-up or Clean-up Assistance-helper sets up or cleans up; patient completes activity. [place] assists only prior to or following the activity. 4-Supervision or Touching Assistance-helper provides verbal cues and/or touching/steadying and/or contact guard assistance as patient completes activity. Assistance may be provided throughout the activity or intermittently. 3-Partial/Moderate Assistance-helper does LESS THAN HALF the effort. [place] lifts, holds or supports trunk or limbs, but provides less than half the effort. 2-Substantial/Maximal Assistance-helper does MORE THAN HALF the effort. [place] lifts or holds trunk or limbs and provides more than half the effort. 2-Zxjjkcpuu-axgamg does ALL the effort. Patient does none of the effort to complete the activity. Or, the assistance of 2 or more helpers is required for the patient to complete the activity. If activity was not attempted, code reason: 7-Patient Refused. 9-Not Applicable-not attempted and the patient did not perform the activity before the current illness, exacerbation or injury. 10-Not Attempted due to Environmental Limitations-(lack of equipment, weather restraints, etc.). 88-Not Attempted due to Medical Conditions or Safety Concerns. Sit to Stand (QC): 5 Toilet Transfer (QC): 5 Weight Bearing Right Lower Extremity: Right Full Weight Bearing Left Lower Extremity: Left Full Weight Bearing Gait Training Does the Patient Walk?: Yes Distance: 150' x2 Walk 10 feet (QC): 5 Walk 50 ft with 2 Turns(QC): 5 Walk 150 ft (QC): 5 Gait Persons Needed: 1 Gait Assistive Device: FWW Pt walks with a stiff gait but reports less pain than previous Rx. Exercises Supine Ex: Ankle pumps, Quad Set, Glut sets, Heel Slides, Hip abd/add Supine Reps: 15 Seated Therapy Exercises: Long arc quads, Hip flexion, Kicking activity Seated Reps: 15 Treatments Pt completes Supine Ex in recliner before transferring to standing. Pt uses restroom then ambulates in hallway. Pt completes Seated Ex before returning to room at end of Rx. Pt has all needs met, call light next to pt. Assessment Current Status: Good Progress Pt is moving better and with less assistance due to decreased pain. PT Short Term Goals Short Term Goals Time Frame: Mar 07, 2019 Roll Left & Right: 6 Sit to lyin Lying to sitting on side of be: 6 Sit to stand: 6 PT Fdc Goals Multi Operation Forming Machine Setter Goals PT Fdc Goals Time Frame: Mar 14, 2019 Roll Left & Right (QC): 6 Sit to Lying (QC): 6 Lying-Sitting on Side/Bed(QC): 6 Sit to Stand (QC): 6 Chair/Qdv-db-Hfszl Xfer(QC): 6 Toilet Transfer (QC): 6 Car Transfer (QC): 6 Does the Patient Walk: Yes Walk 10 feet (QC): 6 Walk 50ft with 2 Turns (QC): 6 Walk 150 ft (QC): 6 Walking 10ft on Uneven Surface: 6 1 Step (curb) (QC): 6 4 Steps (QC): 4 12 Steps (QC): 4 Picking up an Object (QC): 88 Does the Pt use WC or Scooter?: No Wheel 50 feet with 2 turns (QC: 9 Wheel 150 feet: 9 PT Plan Problem List Problem List: Activity Tolerance, Functional Strength, Gait Treatment/Plan Treatment Plan: Continue Plan of Care Treatment Plan: Bed Mobility, Education, Functional Activity Dirk, Functional Strength, Group Therapy, Gait, Safety, Therapeutic Exercise, Transfers Treatment Duration: Mar 14, 2019 Frequency: Modified Program (IRF) Estimated Hrs Per Day: 1.5 hours per day Patient and/or Family Agrees t: Yes Safety Risks/Education Patient Education: Gait Training, Transfer Techniques, Correct Positioning, Safety Issues Teaching Recipient: Patient Teaching Methods: Discussion Response to Teaching: Verbalize Understanding Time/GCodes Time In: 815 Time Out: 915 Total Billed Treatment Time: 60 Total Billed Treatment 1, EX x2 (30m), GT (15m) & FA (15m) TRINI ACEVES INSPECTION AND TESTING SUPERVISOR Mar 05, 2019 09:36
--- NOTE | 2019-03-05 10:58 | PM&R Progress Note ---
Subjective HPI/CC On Admission Date Seen by Provider: Mar 05, 2019 Time Seen by Provider: 10:00 Subjective/Events-last exam There is some interaction with her daughter that tends to be a little bit of psychosocial issues Pain is improved [place] like she got a little bit confused last night and otherwise feels like the Neurontin of 300 may be helping but if it is causing her confusion that may be an issue Will stop the fluid restriction More concentrated urine noted Will do an in and out cath if he continues to have issues Checked meds and labs Reviewed therapy notes Conferred with medical record technician of Systems General: Fatigue Musculoskeletal: back pain Objective Exam Vital Signs Vital Signs Date Time Temp Pulse Resp B/P (MAP) Pulse Ox O2 Delivery O2 Flow Rate FiO2 03/05/19 21:00 Room Air 03/05/19 16:10 36.8 71 18 161/77 (105) 97 03/05/19 15:00 21 Capillary Refill : Less Than 3 Seconds General Appearance: No Apparent Distress, WD/WN, Chronically ill, Obese HEENT: PERRL/EOMI, Normal ENT Inspection, Pharynx Normal Neck: Full Range of Motion, Normal Inspection, Non Tender, Supple, Carotid Bruit Respiratory: Chest Non Tender, Lungs Clear, Normal Breath Sounds, No Accessory Muscle Use, No Respiratory Distress Cardiovascular: Regular Rate, Rhythm, No Edema, No Gallop, No JVD, No Murmur, Normal Peripheral Pulses Gastrointestinal: Normal Bowel Sounds, No Organomegaly, No Pulsatile Mass, Non Tender, Soft Back: Decreased Range of Motion Extremity: Normal Capillary Refill, Normal Inspection, Normal Range of Motion (limited from back pain), Non Tender, No Calf Tenderness, No Pedal Edema Neurologic/Psychiatric: Alert, Oriented x3, No Motor/Sensory Deficits, drapery cutter machine II- XII Norm as Tested, Depressed Affect, Motor Weakness (motor weakness of lower legs from spinal surgery /) Skin: Normal Color, Warm/Dry Lymphatic: No Adenopathy Results/Procedures Lab Patient resulted labs reviewed. FIM Transfers Therapy Code Descriptions/Definitions Functional [place] Measure: 0=Not Assessed/NA 4=Minimal Assistance 1=Total Assistance 5=Supervision or Setup 2=Maximal Assistance 6=Modified [place] 3=Moderate Assistance 7=Complete IndependenceSCALE: Activities may be completed with or without assistive devices. 8-Jskswbtcas-hooibxu completes the activity by him/herself with no assistance from a helper. 5-Set-up or Clean-up Assistance-helper sets up or cleans up; patient completes activity. [place] assists only prior to or following the activity. 4-Supervision or Touching Assistance-helper provides verbal cues and/or touching/steadying and/or contact guard assistance as patient completes activity. Assistance may be provided throughout the activity or intermittently. 3-Partial/Moderate Assistance-helper does LESS THAN HALF the effort. [place] lifts, holds or supports trunk or limbs, but provides less than half the effort. 2-Substantial/Maximal Assistance-helper does MORE THAN HALF the effort. [place] lifts or holds trunk or limbs and provides more than half the effort. 7-Zvgolvkzq-kdqsbm does ALL the effort. Patient does none of the effort to complete the activity. Or, the assistance of 2 or more helpers is required for the patient to complete the activity. If activity was not attempted, code reason: 7-Patient Refused. 9-Not Applicable-not attempted and the patient did not perform the activity before the current illness, exacerbation or injury. 10-Not Attempted due to Environmental Limitations-(lack of equipment, weather restraints, etc.). 88-Not Attempted due to Medical Conditions or Safety Concerns. Roll Left to Right (QC): 5 Sit to Lying (QC): 4 Sit to Stand (QC): 5 Chair/Axh-vm-Qusrk Xfer(QC): 5 Car Transfer (QC): 2 Gait Training Does the Patient Walk?: Yes Distance: 150' x2 Walk 10 feet (QC): 5 Walk 50 ft with 2 Turns(QC): 5 Walk 150 ft (QC): 5 Walking 10ft/uneven surface-QC: 3 Gait Persons Needed: 1 Gait Assistive Device: FWW Wheelchair Training Does the Pt Use a Wheelchair?: No Stair Training #of Steps: 1 1 Step (curb) (QC): 3 4 Steps (QC): 88 12 Steps (QC): 88 Balance Picking up an Object (QC): 88 ADL-Treatment Eating (QC): 7 Oral Hygiene (QC): 5 (Set up seated at sink to brush teeth/comb hair.) Shower/Bathe Self (QC): 3 Upper Body Dressing (QC): 5 Lower Body Dressing (QC): 4 On/Off Footwear (QC): 3 Toileting Hygiene (QC): 4 (CGA to cleanse front. Pt. has not had BM, but OT did provide toilet tongs for when pt. does.) Toilet Transfer (QC): 4 Assessment/Plan Assessment and Plan Assess & Plan/Chief Complaint Assessment: Status post lumbar spine decompression surgery POD # [address] Delong at [facility] in [place] Syncope Orthostasis episodes in the past chronic HTN labile levels Renal insufficiency improved today after fluids Hyponatremia improved with fluid restriction and s/p normal saline IV fluids 133 Saturday Anemia s/p 1 unit of blood at [facility] and received 1 unit Saturday since hemoglobin 7.1 and has cardiac risk factors Saturday 9.8 Dehydration resolved with IV fluids Chronic AF Plan: Home meds except Plavix due to recent spine surgery SCD's Cardiology evaluation Fluid restriction 1500 Saturday increased from 1000 Venofer DC after 1 dose since IV infiltrated 1 unit of blood Saturday with Lasix afterwards Inpatient rehabilitation to continue recovery Hold Florinef for right now and monitor for presence of orthostasis since it do es not appear to be the case (1) Status post lumbar spine surgery for decompression of spinal cord (2) Iron deficiency (3) Anemia (4) Anxiety (5) Hyponatremia (6) Renal insufficiency (7) Syncope (8) Hypertension (9) Orthostasis (10) Constipation (11) Transfusion of blood during current hospitalisation PIERCE JAMES DO Mar 05, 2019 10:58
--- NOTE | 2019-03-05 13:59 | Occupational Ther Daily Note ---
OT Current Status-Daily Note Subjective Pt. reports 5/10 back pain, but has already had pain medication. Appearance Pt. up in chair. Agrees to work with OT. Mental Status/Objective Patient Orientation: Person, Place, Time, Situation ADL-Treatment Therapy Code Descriptions/Definitions Functional [place] Measure: 0=Not Assessed/NA 4=Minimal Assistance 1=Total Assistance 5=Supervision or Setup 2=Maximal Assistance 6=Modified [place] 3=Moderate Assistance 7=Complete IndependenceSCALE: Activities may be completed with or without assistive devices. 3-Lkwadxfdym-tezwomm completes the activity by him/herself with no assistance from a helper. 5-Set-up or Clean-up Assistance-helper sets up or cleans up; patient completes activity. [place] assists only prior to or following the activity. 4-Supervision or Touching Assistance-helper provides verbal cues and/or touching/steadying and/or contact guard assistance as patient completes act ivity. Assistance may be provided throughout the activity or intermittently. 3-Partial/Moderate Assistance-helper does LESS THAN HALF the effort. [place] lifts, holds or supports trunk or limbs, but provides less than half the effort. 2-Substantial/Maximal Assistance-helper does MORE THAN HALF the effort. [place] lifts or holds trunk or limbs and provides more than half the effort. 9-Avimshqdj-fbvmxa does ALL the effort. Patient does none of the effort to complete the activity. Or, the assistance of 2 or more helpers is required for the patient to complete the activity. If activity was not attempted, code reason: 7-Patient Refused. 9-Not Applicable-not attempted and the patient did not perform the activity before the current illness, exacerbation or injury. 10-Not Attempted due to Environmental Limitations-(lack of equipment, weather restraints, etc.). 88-Not Attempted due to Medical Conditions or Safety Concerns. Eating (QC): 6 Toileting Hygiene (QC): 4 (CGA in stance using toilet tongs.) Toilet Transfer (QC): 4 Other Treatment Pt. declines showering and is dressed for the day. OT, pt. and daughter have in depth conversation regarding home set up, and goals for safe discharge home. Pt. will be staying with daughter at [facility]. Daughter brings in pictures of pt's home set up, per request, and OT is able to recommend grab bar and hand held shower hose in her shower. Educated them on bathroom safety with throw rugs and non-slip mats. OT looked at pt's BSC and it will work for her at home. Pt. would like a wider walker. Stood with CGA and ambulated to bathroom. After toileting, pt. educated on using toilet tongs. Able to do so. Ambulated back to chair in room. All needs met. Education OT Patient Education: Correct positioning, Modified ADL techniques, Progress toward Goal/Update tx plan, Purpose of tx/functional activities, Reviewed precautions, Rehab process, Transfer techniques, Use of adapted equipment Teaching Recipient: Patient Teaching Methods: Demonstration, Discussion Response to Teaching: Verbalize Understanding, Return Demonstration OT Nursing Home Goals Forest Engineer Goals Time Frame: Mar 14, 2019 Eating (QC): 6 Oral Hygiene (QC): 6 Toileting Hygiene (QC): 6 Shower/Bathe Self (QC): 6 Upper Body Dressing (QC): 6 Lower Body Dressing (QC): 6 On/Off Footwear (QC): 6 Additional Goals: 1-Demonstrate ADL Tasks, 2-Verbalize Understanding, 3-ImproveStrength/Dirk 1=Demonstrate adherence to instructed precautions during ADL tasks. 2=Patient will verbalize/demonstrate understanding of assistive devices/modifications for ADL. 3=Patient will improve strength/tolerance for activity to enable patient to perform ADL's. OT Education/Plan Problem List/Assessment Assessment: Decreased Activ Tolerance, Impaired I ADL's, Impaired Self-Care Skills Discharge Recommendations Plan/Recommendations: Continue POC Equpiment Recommendations-D/C: Hip Kit Comment Wide walker Treatment Plan/Plan of Care Treatment,Training & Education: Yes Patient would benefit from OT for education, treatment and training to promote independence in ADL's, mobility, safety and/or upper extremity function for ADL's. Plan of Care: ADL Retraining, Caregiver Training, Functional Mobility, Group Exercise/Act as Ind, UE Funct Exercise/Act Treatment Duration: Mar 14, 2019 Frequency: At least 5 of 7 days/Wk (IRF) Estimated Hrs Per Day: 1.5 hours per day Agreement: Yes Rehab Potential: Good Time/GCodes Start Time: 09:15 Stop Time: 10:15 Total Time Billed (hr/min): 60 Billed Treatment Time 1, ADL x 4 RADHA JACOME OT Mar 05, 2019 13:59
--- NOTE | 2019-03-05 14:03 | Occupational Ther Daily Note ---
OT Current Status-Daily Note Subjective Pt. reports pain at 9/10 at end of session. Nursing to bring pain meds. Mental Status/Objective Patient Orientation: Person, Place, Time, Situation ADL-Treatment Therapy Code Descriptions/Definitions Functional [place] Measure: 0=Not Assessed/NA 4=Minimal Assistance 1=Total Assistance 5=Supervision or Setup 2=Maximal Assistance 6=Modified [place] 3=Moderate Assistance 7=Complete IndependenceSCALE: Activities may be completed with or without assistive devices. 7-Bdkpvvcmit-cdlwzpa completes the activity by him/herself with no assistance from a helper. 5-Set-up or Clean-up Assistance-helper sets up or cleans up; patient completes activity. [place] assists only prior to or following the activity. 4-Supervision or Touching Assistance-helper provides verbal cues and/or touching/steadying and/or contact guard assistance as patient completes activity. Assistance may be provided throughout the activity or intermittently. 3-Partial/Moderate Assistance-helper does LESS THAN HALF the effort. [place] lifts, holds or supports trunk or limbs, but provides less than half the effort. 2-Substantial/Maximal Assistance-helper does MORE THAN HALF the effort. [place] lifts or holds trunk or limbs and provides more than half the effort. 0-Bxvxuzoir-ooypip does ALL the effort. Patient does none of the effort to complete the activity. Or, the assistance of 2 or more helpers is required for the patient to complete the activity. If activity was not attempted, code reason: 7-Patient Refused. 9-Not Applicable-not attempted and the patient did not perform the activity before the current illness, exacerbation or injury. 10-Not Attempted due to Environmental Limitations-(lack of equipment, weather restraints, etc.). 88-Not Attempted due to Medical Conditions or Safety Concerns. On/Off Footwear: 3 (Min assist to doff slipper socks, don socks, and don shoes with AE.) Pt. ambulated to laundry room with CGA. Practiced back safety with laundry task, and with AE. OT educated pt. and daughter about taking breaks, golfers lift for back safety, walker basket use, and using barrel raiser. Pt. verbalizes understanding and is able to demonstrate ability to retrieve clothing from washer, dryer. Pt. begins to have pain and feels "weak." Sat to rest and nursing notified. Pt. able to ambulate back to room with walker and CGA. All needs met. Education OT Patient Education: Correct positioning, Modified ADL techniques, Progress toward Goal/Update tx plan, Purpose of tx/functional activities, Reviewed precautions, Rehab process, Transfer techniques Teaching Recipient: Patient Teaching Methods: Demonstration, Discussion Response to Teaching: Verbalize Understanding, Return Demonstration OT Corporate Financial Analyst Goals Corporate Financial Analyst Goals Time Frame: Mar 14, 2019 Eating (QC): 6 Oral Hygiene (QC): 6 Toileting Hygiene (QC): 6 Shower/Bathe Self (QC): 6 Upper Body Dressing (QC): 6 Lower Body Dressing (QC): 6 On/Off Footwear (QC): 6 Additional Goals: 1-Demonstrate ADL Tasks, 2-Verbalize Understanding, 3-ImproveStrength/Dirk 1=Demonstrate adherence to instructed precautions during ADL tasks. 2=Patient will verbalize/demonstrate understanding of assistive devices/modifications for ADL. 3=Patient will improve strength/tolerance for activity to enable patient to per form ADL's. OT Education/Plan Problem List/Assessment Assessment: Decreased Activ Tolerance, Impaired I ADL's, Impaired Self-Care Skills Discharge Recommendations Plan/Recommendations: Continue POC Therapy Discharge Recommendati: Post Acute OT Equpiment Recommendations-D/C: Hip Kit Treatment Plan/Plan of Care Treatment,Training & Education: Yes Patient would benefit from OT for education, treatment and training to promote independence in ADL's, mobility, safety and/or upper extremity function for ADL's. Plan of Care: ADL Retraining, Caregiver Training, Functional Mobility, Group Ex ercise/Act as Ind, UE Funct Exercise/Act Treatment Duration: Mar 14, 2019 Frequency: At least 5 of 7 days/Wk (IRF) Estimated Hrs Per Day: 1.5 hours per day Agreement: Yes Rehab Potential: Good Time/GCodes Start Time: 11:35 Stop Time: 12:05 Total Time Billed (hr/min): 30 Billed Treatment Time 1, ADL x 2 RADHA JACOME OT Mar 05, 2019 14:03
--- NOTE | 2019-03-05 14:16 | Physical Therapy Daily Note ---
PT Daily Note-Current Subjective Pt sitting in recliner upon arrival. Pt agrees to PT. Pain Numeric Pain Scale: 7 Location Body Site: Back Pain Description: Ache Mental Status Patient Orientation: Person, Place, Time, Situation Attachments: Other-See Comments (Lumbar Back Brace) Transfers SCALE: Activities may be completed with or without assistive devices. 0-Qyvwednuqc-utcgndy completes the activity by him/herself with no assistance from a helper. 5-Set-up or Clean-up Assistance-helper sets up or cleans up; patient completes activity. [place] assists only prior to or following the activity. 4-Supervision or Touching Assistance-helper provides verbal cues and/or touching/steadying and/or contact guard assistance as patient completes activity. Assistance may be provided throughout the activity or intermittently. 3-Partial/Moderate Assistance-helper does LESS THAN HALF the effort. [place] lifts, holds or supports trunk or limbs, but provides less than half the effort. 2-Substantial/Maximal Assistance-helper does MORE THAN HALF the effort. [place] lifts or holds trunk or limbs and provides more than half the effort. 8-Ipcxqvnku-xuiayb does ALL the effort. Patient does none of the effort to complete the activity. Or, the assistance of 2 or more helpers is required for the patient to complete the activity. If activity was not attempted, code reason: 7-Patient Refused. 9-Not Applicable-not attempted and the patient did not perform the activity before the current illness, exacerbation or injury. 10-Not Attempted due to Environmental Limitations-(lack of equipment, weather restraints, etc.). 88-Not Attempted due to Medical Conditions or Safety Concerns. Sit to Stand (QC): 5 Weight Bearing Right Lower Extremity: Right Full Weight Bearing Left Lower Extremity: Left Full Weight Bearing Gait Training Does the Patient Walk?: Yes Distance: 150' x2 Walk 10 feet (QC): 5 Walk 50 ft with 2 Turns(QC): 5 Walk 150 ft (QC): 5 Gait Persons Needed: 1 Gait Assistive Device: FWW Exercises Seated Therapy Exercises: Ankle pumps, Long arc quads, Hip flexion, Kicking activity, Hip abd/add Seated Reps: 20 Treatments Pt transfers from recliner to standing. Pt ambulates in hallway using FWW. Pt completes Seated Ex in chair in Therapy Gym. Pt returns to room to rest at end of Rx. Pt has all needs met, call light next to pt. Assessment Current Status: Good Progress Pt's pain has started to decrease even with activity today. Pt continues to push self during Rx. PT Short Term Goals Short Term Goals Time Frame: Mar 07, 2019 Roll Left & Right: 6 Sit to lyin Lying to sitting on side of be: 6 Sit to stand: 6 PT Aesthetician Goals Assisted Goals PT Assisted Goals Time Frame: Mar 14, 2019 Roll Left & Right (QC): 6 Sit to Lying (QC): 6 Lying-Sitting on Side/Bed(QC): 6 Sit to Stand (QC): 6 Chair/Xjd-sv-[place] Xfer(QC): 6 Toilet Transfer (QC): 6 Car Transfer (QC): 6 Does the Patient Walk: Yes Walk 10 feet (QC): 6 Walk 50ft with 2 Turns (QC): 6 Walk 150 ft (QC): 6 Walking 10ft on Uneven Surface: 6 1 Step (curb) (QC): 6 4 Steps (QC): 4 12 Steps (QC): 4 Picking up an Object (QC): 88 Does the Pt use WC or Scooter?: No Wheel 50 feet with 2 turns (QC: 9 Wheel 150 feet: 9 PT Plan Problem List Problem List: Activity Tolerance, Functional Strength, Gait Treatment/Plan Treatment Plan: Continue Plan of Care Treatment Plan: Bed Mobility, Education, Functional Activity Dirk, Functional Strength, Group Therapy, Gait, Safety, Therapeutic Exercise, Transfers Treatment Duration: Mar 14, 2019 Frequency: Modified Program (IRF) Estimated Hrs Per Day: 1.5 hours per day Patient and/or Family Agrees t: Yes Safety Risks/Education Patient Education: Gait Training, Transfer Techniques, Correct Positioning, Safety Issues Teaching Recipient: Patient, Family Teaching Methods: Discussion Response to Teaching: Verbalize Understanding Time/GCodes Time In: 1315 Time Out: 1345 Total Billed Treatment Time: 30 Total Billed Treatment 1, GT (15m) & EX (15m) TRINI ACEVES PTA Mar 05, 2019 14:16
[2019-03-05 15:00] VITALS: BP 149/82
[2019-03-05 16:10] VITALS: BP 161/77
--- NOTE | 2019-03-05 16:31 | Cardiology Progress Note ---
Cardiology SOAP Progress Note Subjective: No cardiac complaints. Complains of back pain. Objective: I&O/Vital Signs 03/05/19 03/05/19 03/05/19 03/05/19 06:10 09:00 13:43 15:00 Temp 36.8 36.8 Pulse 81 69 Resp 18 B/P (MAP) 149/82 (104) Pulse Ox 96 96 O2 Delivery Room Air Room Air Room Air FiO2 21 03/05/19 16:10 Temp 36.8 Pulse 71 Resp 18 B/P (MAP) 161/77 (105) Pulse Ox 97 O2 Delivery Room Air 03/05/19 00:00 Intake Total 720 ml Balance 720 ml Constitutional: No appears stated age; AAO x 3; No apparent distress, No PERRL, No well-developed, No well-nourished, No other Respiratory: No accessory muscle use, No respiratory distress, No chest tender, No chest expansion is symmetric; chest is bilaterally symmetric; No lungs clear to percussion; lungs clear to auscultation; No crackles, No rhonchi, No rales, No stridor, No wheezing, No pleural rub, No other Cardiovascular: regular rate-rhythm, S1 and S2 Gastrointestional: soft, audible bowel sounds Extremities: normal range of motion, non-tender, normal inspection, no lower extremity edema bilateral Neurologic/Psychiatric: no motor/sensory deficits, alert, normal mood/affect, oriented x 3 Skin: normal color A/P: Assessment/Dx: Recent spine surgery, Paroxysmal atrial fibrillation, Chronic kidney disease, Anemia, Hyponatremia, Syncope. Orthostatic hypotension Plan: Recent spine surgery, DVT prophylaxis. Paroxysmal atrial fibrillation, not on oral anticoagulation due to recent spine surgery. Flecainide as an outpatient. Chronic kidney disease, defer to the primary team. Anemia, transfusion. Hyponatremia, unclear etiology. Syncope. Telemetry, echocardiogram. Telemetry shows no arrhythmias. Echocardiogram done 02/26/2019 shows hyperdynamic LV function with moderate diastolic dysfunction. Dehydration is likely. Generous IV fluid is recommended. Orthostatic hypotension, initially I recommended to start Florinef. However the blood pressure has been stable therefore we have not given Florinef. Follow-up with Dr. Baltazar for cardiology after discharge. Thank you for your consultation. Please call me if you have any questions. Malcom Lynn MD, FACP, FACC, FSCAI, FHRS, CCDS Interventional Cardiology Cardiac Electrophysiology Vascular Medicine and Endovascular Interventions Ludy LYNN MD Mar 05, 2019 16:31
[2019-03-05] MEDS: GABAPENTIN 300 MG (NEURONTIN) CAP PO SCH (20:55)
[2019-03-05] MEDS: amLODIPine 5 MG (NORVASC) TAB PO SCH (20:56)
[2019-03-05] MEDS: POLYETHYLENE GLYCOL 17 GM (MIRALAX) PACK PO SCH (20:59)
[2019-03-06] MEDS: ALPRAZolam 0.25 MG (XANAX) TAB PO PRN ×2 (00:59→22:20)
[2019-03-06] MEDS: HYDROcodone/APAP 5 MG/325 MG (LORTAB) TAB PO PRN ×5 (01:00→22:22)
[2019-03-06 05:44] VITALS: BP 164/81
[2019-03-06] MEDS: BACLOFEN 10 MG (LIORESAL) TAB PO PRN ×3 (06:29→18:11)
[2019-03-06 08:00] VITALS: BP 143/76
[2019-03-06] MEDS: FLECAINIDE 100 MG (TAMBOCOR) TAB PO SCH ×2 (09:02→20:16)
[2019-03-06] MEDS: ALLOPURINOL 100 MG (ZYLOPRIM) TAB PO SCH (09:03)
[2019-03-06] MEDS: DICLOFENAC 1% GEL 100 GM (VOLTAREN) TUBE TOP SCH ×4 (09:03→22:20)
[2019-03-06] MEDS: SENNA W/DOCUSATE (SENOKOT S) TABLET PO SCH ×2 (09:32→21:34)
[2019-03-06] MEDS: DOCUSATE SODIUM 100 MG (COLACE) CAP PO SCH ×2 (09:32→21:34)
--- NOTE | 2019-03-06 10:00 | NUR ---
COMPLAIN NEURONTIN CAUSING TWITCHING AND BUCKLING OF KNEES. DOSE DECREASED TO 200 MG AT HS. STATES SLEPT GOOD. DAUGHTER AT BEDSIDE. ENJOYING BEING OFF FLUID RESTRICTION. BP STABLE.
--- NOTE | 2019-03-06 11:01 | Physical Therapy Daily Note ---
PT Daily Note-Current Subjective Pt. agrees to Rx. Pts. dtr present and supportive. Pt. states overall she feels a little better and feels she is moving a little better but still has pain in LEs, "not my back though" Pain Numeric Pain Scale: 5-Moderate Pain Location: Right Location Body Site: Thigh (lateral) Pain Description: Burning Mental Status Patient Orientation: Normal For Age Attachments: Other-See Comments (back brace) Transfers SCALE: Activities may be completed with or without assistive devices. 2-Jthtdlgkwv-mdcfmzf completes the activity by him/herself with no assistance from a helper. 5-Set-up or Clean-up Assistance-helper sets up or cleans up; patient completes activity. [place] assists only prior to or following the activity. 4-Supervision or Touching Assistance-helper provides verbal cues and/or touching/steadying and/or contact guard assistance as patient completes activ ity. Assistance may be provided throughout the activity or intermittently. 3-Partial/Moderate Assistance-helper does LESS THAN HALF the effort. [place] lifts, holds or supports trunk or limbs, but provides less than half the effort. 2-Substantial/Maximal Assistance-helper does MORE THAN HALF the effort. [place] lifts or holds trunk or limbs and provides more than half the effort. 1-Nkuewdogv-gnlvjm does ALL the effort. Patient does none of the effort to complete the activity. Or, the assistance of 2 or more helpers is required for the patient to complete the activity. If activity was not attempted, code reason: 7-Patient Refused. 9-Not Applicable-not attempted and the patient did not perform the activity before the current illness, exacerbation or injury. 10-Not Attempted due to Environmental Limitations-(lack of equipment, weather restraints, etc.). 88-Not Attempted due to Medical Conditions or Safety Concerns. Roll Left & Right (QC): 5 Sit to Lying (QC): 5 Lying to Sitting/Side of Bed(Q: 5 Sit to Stand (QC): 5 Chair/Gpo-hn-Wwhtr Xfer(QC): 5 Car Transfer (QC): 5 pt. tends to sit down at edge of seat and then has some difficulty scooting to back of the chair so then requests a pillow at her back. worked on getting bottom farther back in to the chair with some success. Upon initial stance pt. still has flexed, "melted knees" and has to concentrate on strength and stabili ty in knees/legs Weight Bearing Right Lower Extremity: Right Full Weight Bearing Left Lower Extremity: Left Full Weight Bearing Gait Training Does the Patient Walk?: Yes Walk 10 feet (QC): 5 Walk 50 ft with 2 Turns(QC): 5 Walk 150 ft (QC): 4 Gait Persons Needed: 1 Gait Assistive Device: FWW pt. has noted fatigue with gait distance and needs more support as she has increased flexed knees and possible instability Stair Training Stair Training: Handrails/: 2 handrails #of Steps: 3 Stairs: Pattern: Step to pink step in parallel bars with some discussion about sequence , pt. not sure what feels more stable, OUTBOARD TECHNICIAN guiding her for trial etc Balance Picking up an Object (QC): 88 Exercises Supine Ex: Ankle pumps, Quad Set, Rolling, Glut sets, Heel Slides, Short Arc Quads, Scooting, Hip abd/add Supine Reps: 15 Seated Therapy Exercises: Ankle pumps, Sit to stand, Long arc quads, Hip flexi on, Hip abd/add Seated Reps: 15 NuStep Minutes: 12 NuStep Workload: 5 Treatments leg presses on Nustep x 15 reps, ice packs made and given to pt. to use on areas she continues to c/o pain and paresthesia in thighs Assessment Current Status: Good Progress slow steady progress PT Short Term Goals Short Term Goals Time Frame: Mar 07, 2019 Roll Left & Right: 6 Sit to lyin Lying to sitting on side of be: 6 Sit to stand: 6 PT Residential Goals Residential Goals PT Residential Goals Time Frame: Mar 14, 2019 Roll Left & Right (QC): 6 Sit to Lying (QC): 6 Lying-Sitting on Side/Bed(QC): 6 Sit to Stand (QC): 6 Chair/Yzx-gm-Fqfbr Xfer(QC): 6 Toilet Transfer (QC): 6 Car Transfer (QC): 6 Does the Patient Walk: Yes Walk 10 feet (QC): 6 Walk 50ft with 2 Turns (QC): 6 Walk 150 ft (QC): 6 Walking 10ft on Uneven Surface: 6 1 Step (curb) (QC): 6 4 Steps (QC): 4 12 Steps (QC): 4 Picking up an Object (QC): 88 Does the Pt use WC or Scooter?: No Wheel 50 feet with 2 turns (QC: 9 Wheel 150 feet: 9 PT Plan Treatment/Plan Treatment Plan: Continue Plan of Care Treatment Plan: Bed Mobility, Education, Functional Activity Dirk, Functional Strength, Group Therapy, Gait, Safety, Therapeutic Exercise, Transfers Treatment Duration: Mar 14, 2019 Frequency: Modified Program (IRF) Estimated Hrs Per Day: 1.5 hours per day Patient and/or Family Agrees t: Yes Safety Risks/Education Patient Education: Gait Training, Transfer Techniques, Steps, Correct Positioning, Reviewed Don/Doff Brace, Disease Process, Safety Issues Teaching Recipient: Patient Teaching Methods: Demonstration, Discussion Response to Teaching: Verbalize Understanding, Return Demonstration, Reinforcement Needed requires assist for donning and doffing brace Time/GCodes Time In: 930 Time Out: 1100 Total Billed Treatment Time: 90 Total Billed Treatment 1,GT30m,EX30m,FA30m GINA MCMAHON OUTBOARD TECHNICIAN Mar 06, 2019 11:01
--- NOTE | 2019-03-06 11:14 | PM&R Progress Note ---
Subjective HPI/CC On Admission Date Seen by Provider: Mar 06, 2019 Time Seen by Provider: 09:30 Subjective/Events-last exam Pain is improved today [place] like she got a little bit confused last night so we discussed the Neurontin dose indepth and she agrees for 200mg daily at night instead of the 300mg since she thinks it does help Stopped the fluid restriction 2 days ago and she feels really much better since she is not as thirsty No falls reported BP 143/76 so much improved and no orthostasis changes noted and no more "episodes" that she has at home regularly since DC HCTZ Checked meds and labs Reviewed therapy notes Conferred with coordinator mining products of Systems Musculoskeletal: back pain Neurological: Weakness, Numbness, Incoordination Objective Exam Vital Signs Vital Signs Date Time Temp Pulse Resp B/P (MAP) Pulse Ox O2 Delivery O2 Flow Rate FiO2 03/06/19 17:30 37.0 72 18 160/76 (104) 96 Room Air 03/05/19 15:00 21 Capillary Refill : Less Than 3 Seconds General Appearance: No Apparent Distress, WD/WN, Chronically ill, Obese HEENT: PERRL/EOMI, Normal ENT Inspection, Pharynx Normal Neck: Full Range of Motion, Normal Inspection, Non Tender, Supple, Carotid Bruit Respiratory: Chest Non Tender, Lungs Clear, Normal Breath Sounds, No Accessory Muscle Use, No Respiratory Distress Cardiovascular: Regular Rate, Rhythm, No Edema, No Gallop, No JVD, No Murmur, Normal Peripheral Pulses Gastrointestinal: Normal Bowel Sounds, No Organomegaly, No Pulsatile Mass, Non Tender, Soft Back: Decreased Range of Motion Extremity: Normal Capillary Refill, Normal Inspection, Normal Range of Motion (limited from back pain), Non Tender, No Calf Tenderness, No Pedal Edema Neurologic/Psychiatric: Alert, Oriented x3, No Motor/Sensory Deficits, bat boy/girl II- XII Norm as Tested, Depressed Affect, Motor Weakness (motor weakness of lower legs from spinal surgery /) Skin: Normal Color, Warm/Dry Lymphatic: No Adenopathy Results/Procedures Lab Patient resulted labs reviewed. FIM Transfers Therapy Code Descriptions/Definitions Functional [place] Measure: 0=Not Assessed/NA 4=Minimal Assistance 1=Total Assistance 5=Supervision or Setup 2=Maximal Assistance 6=Modified [place] 3=Moderate Assistance 7=Complete IndependenceSCALE: Activities may be completed with or without assistive devices. 0-Wrukgzzlhx-xumpjeq completes the activity by him/herself with no assistance from a helper. 5-Set-up or Clean-up Assistance-helper sets up or cleans up; patient completes activity. [place] assists only prior to or following the activity. 4-Supervision or Touching Assistance-helper provides verbal cues and/or touching/steadying and/or contact guard assistance as patient completes activity. Assistance may be provided throughout the activity or intermittently. 3-Partial/Moderate Assistance-helper does LESS THAN HALF the effort. [place] lifts, holds or supports trunk or limbs, but provides less than half the effort. 2-Substantial/Maximal Assistance-helper does MORE THAN HALF the effort. [place] lifts or holds trunk or limbs and provides more than half the effort. 2-Gsaycchuh-dacwph does ALL the effort. Patient does none of the effort to complete the activity. Or, the assistance of 2 or more helpers is required for the patient to complete the activity. If activity was not attempted, code reason: 7-Patient Refused. 9-Not Applicable-not attempted and the patient did not perform the activity before the current illness, exacerbation or injury. 10-Not Attempted due to Environmental Limitations-(lack of equipment, weather restraints, etc.). 88-Not Attempted due to Medical Conditions or Safety Concerns. Roll Left to Right (QC): 5 Sit to Lying (QC): 5 Sit to Stand (QC): 5 Chair/Jfe-dj-Rpuve Xfer(QC): 5 Car Transfer (QC): 5 Gait Training Does the Patient Walk?: Yes Distance: 150' x2 Walk 10 feet (QC): 5 Walk 50 ft with 2 Turns(QC): 5 Walk 150 ft (QC): 4 Walking 10ft/uneven surface-QC: 3 Gait Persons Needed: 1 Gait Assistive Device: FWW Wheelchair Training Does the Pt Use a Wheelchair?: No Stair Training Stair Training: Handrails/: 2 handrails #of Steps: 3 1 Step (curb) (QC): 3 4 Steps (QC): 88 12 Steps (QC): 88 Stairs: Pattern: Step to Balance Picking up an Object (QC): 88 ADL-Treatment Eating (QC): 6 Oral Hygiene (QC): 5 (Set up seated at sink to brush teeth/comb hair.) Shower/Bathe Self (QC): 3 Upper Body Dressing (QC): 5 Lower Body Dressing (QC): 4 On/Off Footwear (QC): 3 (Min assist to doff slipper socks, don socks, and don shoes with AE.) Toileting Hygiene (QC): 4 (CGA in stance using toilet tongs.) Toilet Transfer (QC): 4 Assessment/Plan Assessment and Plan Assess & Plan/Chief Complaint Assessment: Status post lumbar spine decompression surgery POD # [address] Delong at [facility] in [place] Syncope Orthostasis episodes in the past chronic but improved since DC HCTZ HTN labile levels much improved and more stable Renal insufficiency improved Hyponatremia improved with fluid restriction and DC HCTZ and no lifted fluid restriction since sodium level normal Anemia s/p 1 unit of blood at [facility] and received 1 unit Saturday since hemoglobin 7.1 and has cardiac risk factors Saturday 9.8 Dehydration on admit resolved with IV fluids Chronic AF Plan: Home meds except Plavix due to recent spine surgery SCD's Cardiology evaluation Fluid restriction DC Venofer DC after 1 dose since IV infiltrated 1 unit of blood Saturday with Lasix afterwards Inpatient rehabilitation to continue recovery Hold Florinef for right now and monitor for presence of orthostasis since it does not appear to be the case (1) Status post lumbar spine surgery for decompression of spinal cord (2) Iron deficiency (3) Anemia (4) Anxiety (5) Hyponatremia (6) Renal insufficiency (7) Syncope (8) Hypertension (9) Orthostasis (10) Constipation (11) Transfusion of blood during current hospitalisation PIERCE JAMES DO Mar 06, 2019 11:14
--- NOTE | 2019-03-06 12:51 | Cardiology Progress Note ---
Cardiology SOAP Progress Note Subjective: No cardiac complaints. Objective: I&O/Vital Signs 03/07/19 03/07/19 05:50 09:00 Temp 36.8 Pulse 80 Resp 18 B/P (MAP) 190/77 (114) Pulse Ox 96 O2 Delivery Room Air Room Air 03/07/19 00:00 Intake Total 810 ml Balance 810 ml Constitutional: No appears stated age; AAO x 3; No apparent distress, No PERRL, No well-developed, No well-nourished, No other Respiratory: No accessory muscle use, No respiratory distress, No chest tender, No chest expansion is symmetric; chest is bilaterally symmetric; No lungs clear to percussion; lungs clear to auscultation; No crackles, No rhonchi, No rales, No stridor, No wheezing, No pleural rub, No other Cardiovascular: regular rate-rhythm, S1 and S2 Gastrointestional: soft, audible bowel sounds Extremities: normal range of motion, non-tender, normal inspection, no lower extremity edema bilateral Neurologic/Psychiatric: no motor/sensory deficits, alert, normal mood/affect, oriented x 3 Skin: normal color A/P: Assessment/Dx: Recent spine surgery, Paroxysmal atrial fibrillation, Chronic kidney disease, Anemia, Hyponatremia, Syncope. Orthostatic hypotension Plan: Recent spine surgery, DVT prophylaxis. Paroxysmal atrial fibrillation, not on oral anticoagulation due to recent spine surgery. Flecainide as an outpatient. Chronic kidney disease, defer to the primary team. Anemia, transfusion. Hyponatremia, unclear etiology. Syncope. Telemetry, echocardiogram. Telemetry shows no arrhythmias. Echocardi ogram done 02/26/2019 shows hyperdynamic LV function with moderate diastolic dysfunction. Dehydration is likely. Generous IV fluid is recommended. Orthostatic hypotension, initially I recommended to start Florinef. However the blood pressure has been stable therefore we have not given Florinef. Follow-up with Dr. Baltazar for cardiology after discharge. Thank you for your consultation. Please call me if you have any questions. Malcom Lynn MD, FACP, FACC, FSCAI, FHRS, CCDS Interventional Cardiology Cardiac Electrophysiology Vascular Medicine and Endovascular Interventions Ludy LYNN MD Mar 06, 2019 12:51
--- NOTE | 2019-03-06 13:08 | Occupational Ther Daily Note ---
OT Current Status-Daily Note Subjective Pt sitting in chair, agrees to therapy. Pt reports fatigue this morning, but states her pain is better than it has been. ADL-Treatment Pt requests shower this morning. Sit to stand from chair with SBA. Gait to restroom with FWW. Transfer to [facility] over toilet with SBA. Pt able to complete to ileting hygiene without assist. Pt transferred to shower bench in walk in shower with supervision using grab bars for safety. Doffed clothing with SBA; used dressing stick for lower body clothing. Pt bathed all areas with SBA. Used long handled sponge to wash lower legs and feet. Pt required min assist to dry between toes. Don pullover shirt and brace with set up. Pt required assist to don OANH hose. Pt used hazard mitigation officer to thread bilateral LE into underwear and pants. Stood with FWW for balance during pant hike. Donned socks with SBA and verbal cues using sock aid. Pt combed hair with set up. Has already completed oral care this morning. Therapy Code Descriptions/Definitions Functional [place] Measure: 0=Not Assessed/NA 4=Minimal Assistance 1=Total Assistance 5=Supervision or Setup 2=Maximal Assistance 6=Modified [place] 3=Moderate Assistance 7=Complete IndependenceSCALE: Activities may be completed with or without assistive devices. 4-Ikubfpuixx-xbkrdrx completes the activity by him/herself with no assistance from a helper. 5-Set-up or Clean-up Assistance-helper sets up or cleans up; patient completes activity. [place] assists only prior to or following the activity. 4-Supervision or Touching Assistance-helper provides verbal cues and/or touching/steadying and/or contact guard assistance as patient completes activity. Assistance may be provided throughout the activity or intermittently. 3-Partial/Moderate Assistance-helper does LESS THAN HALF the effort. [place] lifts, holds or supports trunk or limbs, but provides less than half the effort. 2-Substantial/Maximal Assistance-helper does MORE THAN HALF the effort. [place] lifts or holds trunk or limbs and provides more than half the effort. 7-Hqclzonyt-zspwdp does ALL the effort. Patient does none of the effort to complete the activity. Or, the assistance of 2 or more helpers is required for the patient to complete the activity. If activity was not attempted, code reason: 7-Patient Refused. 9-Not Applicable-not attempted and the patient did not perform the activity before the current illness, exacerbation or injury. 10-Not Attempted due to Environmental Limitations-(lack of equipment, weather restraints, etc.). 88-Not Attempted due to Medical Conditions or Safety Concerns. Shower/Bathe Self (QC): 3 Upper Body Dressing (QC): 5 Lower Body Dressing (QC): 3 On/Off Footwear: 4 Toilet Transfer (QC): 4 Other Treatment Gait to therapy gym with FWW, slow pace. Pt completed arm bike activity [id number] to increase overall strength and activity tolerance needed for functional task completion. Pt performed task with minimal resistance and slow pace. No rest breaks needed. Pt returned to room, sitting in chair with needs met and daughter present after session. OT Assisted Goals Assisted Goals Time Frame: Mar 14, 2019 Eating (QC): 6 Oral Hygiene (QC): 6 Toileting Hygiene (QC): 6 Shower/Bathe Self (QC): 6 Upper Body Dressing (QC): 6 Lower Body Dressing (QC): 6 On/Off Footwear (QC): 6 Additional Goals: 1-Demonstrate ADL Tasks, 2-Verbalize Understanding, 3- ImproveStrength/Dirk 1=Demonstrate adherence to instructed precautions during ADL tasks. 2=Patient will verbalize/demonstrate understanding of assistive devices/modifications for ADL. 3=Patient will improve strength/tolerance for activity to enable patient to perform ADL's. OT Education/Plan Discharge Recommendations Plan/Recommendations: Continue POC Treatment Plan/Plan of Care Patient would benefit from OT for education, treatment and training to promote independence in ADL's, mobility, safety and/or upper extremity function for ADL's. Plan of Care: ADL Retraining, Caregiver Training, Functional Mobility, Group Exercise/Act as Ind, UE Funct Exercise/Act Treatment Duration: Mar 14, 2019 Frequency: At least 5 of 7 days/Wk (IRF) Estimated Hrs Per Day: 1.5 hours per day Agreement: Yes Rehab Potential: Good Time/GCodes Start Time: 08:00 Stop Time: 09:30 Total Time Billed (hr/min): 90 Billed Treatment Time 1 visit, ADLx5(70minutes), EX(20minutes) NADIRA TENA OT Mar 06, 2019 13:08
--- NOTE | 2019-03-06 15:32 | NUR ---
ERNESTO CONCURRENT NOTE Visited with patient and her youngest daughter, Fabienne Martin. Patient has followup appointment with her surgeon 03/10/19; plan is that family will transport. Patient will be reviewed for her ability to discharge home same day and not return to unit, to be determined. MEALS: Following up, attempted to contact [facility] [phone]. They are closed for today. Contacted [facility] for that area and they confirmed the contact would need to be directly with [facility]. Provided the information to patient and Fabienne, they will follow up. RAMAN: Will prepare for patient to take with her when discharging. DME: FWW, pending orders for same.
[2019-03-06] MEDS: BISACODYL 10 MG SUPP (DULCOLAX) PR PRN (15:43)
--- NOTE | 2019-03-06 16:00 | NUR ---
WAS MEDICATED WITH DULCOLAX SUPPOSITORY AND EXPELLED A BM.
[2019-03-06 17:30] VITALS: BP 160/76
[2019-03-06] MEDS: amLODIPine 5 MG (NORVASC) TAB PO SCH (20:15)
[2019-03-06] MEDS ORDERED: GABAPENTIN 100 MG (NEURONTIN) CAP PO SCH (21:00)
[2019-03-06] MEDS ORDERED: GABAPENTIN 300 MG (NEURONTIN) CAP PO SCH (21:00)
[2019-03-06] MEDS: POLYETHYLENE GLYCOL 17 GM (MIRALAX) PACK PO SCH (21:34)
[2019-03-07] MEDS: HYDROcodone/APAP 5 MG/325 MG (LORTAB) TAB PO PRN ×5 (02:11→20:48)
[2019-03-07] MEDS: BACLOFEN 10 MG (LIORESAL) TAB PO PRN ×4 (02:26→21:35)
[2019-03-07 05:50] VITALS: BP 190/77
--- NOTE | 2019-03-07 06:30 | NUR ---
INFORMED DR. JAMES THAT PATIENT'S BLOOD PRESSURE IS CURRENTLY 190/77 AND UNABLE TO GIVE ADDITIONAL PRN HYDRALAZINE DOSE UNTIL 0830 AND THAT THERE ARE NO SCHEDULED AM BP MEDS TO ADMINISTER. RECEIVED ORDER TO GIVE HYDRALAZINE AT THIS TIME. WILL CONTINUE TO MONITOR.
[2019-03-07] MEDS: ALPRAZolam 0.25 MG (XANAX) TAB PO PRN (06:37)
--- NOTE | 2019-03-07 07:58 | NUR ---
B/P 164/74, pt resting in chair with daughter nearby.
[2019-03-07] MEDS: amLODIPine 5 MG (NORVASC) TAB PO SCH ×2 (08:55→20:37)
[2019-03-07] MEDS: ALLOPURINOL 100 MG (ZYLOPRIM) TAB PO SCH (08:56)
[2019-03-07] MEDS: SENNA W/DOCUSATE (SENOKOT S) TABLET PO SCH ×2 (08:56→20:38)
[2019-03-07] MEDS: FLECAINIDE 100 MG (TAMBOCOR) TAB PO SCH ×2 (08:56→20:36)
[2019-03-07] MEDS: DOCUSATE SODIUM 100 MG (COLACE) CAP PO SCH ×2 (08:56→20:37)
[2019-03-07] MEDS: DICLOFENAC 1% GEL 100 GM (VOLTAREN) TUBE TOP SCH ×5 (09:02→21:36)
--- NOTE | 2019-03-07 12:02 | Physical Therapy Daily Note ---
PT Daily Note-Current Subjective Pt agreeable to PT session, states she is very sleepy now, stating she wasn't earlier this morning and not sure why she is now. States when she is walking further distances, she feels that her sacrum gets weak and "goes out" causing her legs to give way. Pain Numeric Pain Scale: 7 (nerve pain, L leg > R leg) Comment: dtr states pt received pain med ~6am, pt reports pain is across hips and LB Appearance Pt sitting up in recliner with LE's elevated, asleep, difficult to arouse. At end of session, pt sitting up in recliner, phone, call light and bedside table within reach. Dtr present before and after tx session. Mental Status Patient Orientation: Person, Place, Time, Eyes Open, Situation back support brace Transfers SCALE: Activities may be completed with or without assistive devices. 0-Fuwtjymdrk-futzuss completes the activity by him/herself with no assistance from a helper. 5-Set-up or Clean-up Assistance-helper sets up or cleans up; patient completes activity. [place] assists only prior to or following the activity. 4-Supervision or Touching Assistance-helper provides verbal cues and/or touching/steadying and/or contact guard assistance as patient completes activity. Assistance may be provided throughout the activity or intermittently. 3-Partial/Moderate Assistance-helper does LESS THAN HALF the effort. [place] lifts, holds or supports trunk or limbs, but provides less than half the effort. 2-Substantial/Maximal Assistance-helper does MORE THAN HALF the effort. [place] lifts or holds trunk or limbs and provides more than half the effort. 2-Hkpaxfjzo-ilnsvl does ALL the effort. Patient does none of the effort to complete the activity. Or, the assistance of 2 or more helpers is required for the patient to complete the activity. If activity was not attempted, code reason: 7-Patient Refused. 9-Not Applicable-not attempted and the patient did not perform the activity before the current illness, exacerbation or injury. 10-Not Attempted due to Environmental Limitations-(lack of equipment, weather restraints, etc.). 88-Not Attempted due to Medical Conditions or Safety Concerns. Sit to Stand (QC): 4 (CGA and skilled verb inst for hand placement, technique and safety) Weight Bearing Right Lower Extremity: Right Full Weight Bearing Left Lower Extremity: Left Full Weight Bearing Gait Training Does the Patient Walk?: Yes Distance: 200 Walk 10 feet (QC): 4 Walk 50 ft with 2 Turns(QC): 4 Walk 150 ft (QC): 4 Gait Persons Needed: 1 Gait Assistive Device: FWW flexed kneed gait increasing with increasing distance and fatigue, pt reporting she was not aware at first but as distance and fatigue increased she did become more aware of it. Exercises Seated Therapy Exercises: Ankle pumps (20), Sit to stand (5), Long arc quads (2 x10) Standing Reps: 10 (posture correction and hip/knee terminal extension in static stance) Treatments education, safety, transfers, gait, strength, balance, functional mobility, activity tolerance, positioning Assessment improved posture with instruction PT Short Term Goals Short Term Goals Time Frame: Mar 07, 2019 Roll Left & Right: 6 Sit to lyin Lying to sitting on side of be: 6 Sit to stand: 6 PT Loader Engineer Goals Loader Engineer Goals PT Loader Engineer Goals Time Frame: Mar 14, 2019 Roll Left & Right (QC): 6 Sit to Lying (QC): 6 Lying-Sitting on Side/Bed(QC): 6 Sit to Stand (QC): 6 Chair/Zqu-ro-Qgsxb Xfer(QC): 6 Toilet Transfer (QC): 6 Car Transfer (QC): 6 Does the Patient Walk: Yes Walk 10 feet (QC): 6 Walk 50ft with 2 Turns (QC): 6 Walk 150 ft (QC): 6 Walking 10ft on Uneven Surface: 6 1 Step (curb) (QC): 6 4 Steps (QC): 4 12 Steps (QC): 4 Picking up an Object (QC): 88 Does the Pt use WC or Scooter?: No Wheel 50 feet with 2 turns (QC: 9 Wheel 150 feet: 9 PT Plan Treatment/Plan Treatment Plan: Continue Plan of Care Treatment Plan: Bed Mobility, Education, Functional Activity Dirk, Functional Strength, Group Therapy, Gait, Safety, Therapeutic Exercise, Transfers Treatment Duration: Mar 14, 2019 Frequency: Modified Program (IRF) Estimated Hrs Per Day: 1.5 hours per day Patient and/or Family Agrees t: Yes Safety Risks/Education Patient Education: Gait Training, Transfer Techniques, Reviewed Precautions, Correct Positioning, Reviewed Don/Doff Brace, Safety Issues Teaching Recipient: Patient, Family Teaching Methods: Demonstration, Discussion Response to Teaching: Verbalize Understanding, Return Demonstration Time/GCodes Time In: 923 Time Out: 946 Total Billed Treatment Time: 23 Total Billed Treatment 1 visit, GT x1 unit, EX x1 unit SONJA ALEX PTA Mar 07, 2019 12:02
--- NOTE | 2019-03-07 12:40 | PM&R Progress Note ---
Subjective HPI/CC On Admission Date Seen by Provider: Mar 07, 2019 Time Seen by Provider: 12:45 Subjective/Events-last exam Pain is improved today [place] like she got a little bit confused last night but the nurses do not report that, gabapentin will be decreased to 100mg at night at her request No episodes of near syncope since DC HCTZ but she reports those episodes have been present for years and not a factor with the HCTZ No falls reported Patient concerned about night time issues so I suggested they monitor her at night when she goes home to be sure she has adequate safety Checked meds and labs Reviewed therapy notes Conferred with meeting manager of Systems General: Fatigue Musculoskeletal: back pain Neurological: Weakness, Incoordination Objective Exam Vital Signs Vital Signs Date Time Temp Pulse Resp B/P (MAP) Pulse Ox O2 Delivery O2 Flow Rate FiO2 03/07/19 09:00 Room Air 03/07/19 05:50 36.8 80 18 190/77 (114) 96 03/05/19 15:00 21 Capillary Refill : Less Than 3 Seconds General Appearance: No Apparent Distress, WD/WN, Chronically ill, Obese HEENT: PERRL/EOMI, Normal ENT Inspection, Pharynx Normal Neck: Full Range of Motion, Normal Inspection, Non Tender, Supple, Carotid Bruit Respiratory: Chest Non Tender, Lungs Clear, Normal Breath Sounds, No Accessory Muscle Use, No Respiratory Distress Cardiovascular: Regular Rate, Rhythm, No Edema, No Gallop, No JVD, No Murmur, Normal Peripheral Pulses Gastrointestinal: Normal Bowel Sounds, No Organomegaly, No Pulsatile Mass, Non Tender, Soft Back: Decreased Range of Motion Extremity: Normal Capillary Refill, Normal Inspection, Normal Range of Motion (limited from back pain), Non Tender, No Calf Tenderness, No Pedal Edema Neurologic/Psychiatric: Alert, Oriented x3, No Motor/Sensory Deficits, separator tender II- XII Norm as Tested, Depressed Affect, Motor Weakness (motor weakness of lower legs from spinal surgery 3/) Skin: Normal Color, Warm/Dry Lymphatic: No Adenopathy Results/Procedures Lab Patient resulted labs reviewed. FIM Transfers Therapy Code Descriptions/Definitions Functional [place] Measure: 0=Not Assessed/NA 4=Minimal Assistance 1=Total Assistance 5=Supervision or Setup 2=Maximal Assistance 6=Modified [place] 3=Moderate Assistance 7=Complete IndependenceSCALE: Activities may be completed with or without assistive devices. 2-Prizkgkspt-zddsmyi completes the activity by him/herself with no assistance from a helper. 5-Set-up or Clean-up Assistance-helper sets up or cleans up; patient completes activity. [place] assists only prior to or following the activity. 4-Supervision or Touching Assistance-helper provides verbal cues and/or touching/steadying and/or contact guard assistance as patient completes activity. Assistance may be provided throughout the activity or intermittently. 3-Partial/Moderate Assistance-helper does LESS THAN HALF the effort. [place] lifts, holds or supports trunk or limbs, but provides less than half the effort. 2-Substantial/Maximal Assistance-helper does MORE THAN HALF the effort. [place] lifts or holds trunk or limbs and provides more than half the effort. 0-Ojetqxfei-dmqyep does ALL the effort. Patient does none of the effort to complete the activity. Or, the assistance of 2 or more helpers is required for the patient to complete the activity. If activity was not attempted, code reason: 7-Patient Refused. 9-Not Applicable-not attempted and the patient did not perform the activity before the current illness, exacerbation or injury. 10-Not Attempted due to Environmental Limitations-(lack of equipment, weather restraints, etc.). 88-Not Attempted due to Medical Conditions or Safety Concerns. Roll Left to Right (QC): 5 Sit to Lying (QC): 5 Sit to Stand (QC): 4 (CGA and skilled verb inst for hand placement, technique and safety) Chair/Sca-ur-Ejvyn Xfer(QC): 5 Car Transfer (QC): 5 Gait Training Does the Patient Walk?: Yes Distance: 200 Walk 10 feet (QC): 4 Walk 50 ft with 2 Turns(QC): 4 Walk 150 ft (QC): 4 Walking 10ft/uneven surface-QC: 3 Gait Persons Needed: 1 Gait Assistive Device: FWW Wheelchair Training Does the Pt Use a Wheelchair?: No Stair Training Stair Training: Handrails/: 2 handrails #of Steps: 3 1 Step (curb) (QC): 3 4 Steps (QC): 88 12 Steps (QC): 88 Stairs: Pattern: Step to Balance Picking up an Object (QC): 88 ADL-Treatment Eating (QC): 6 Oral Hygiene (QC): 5 (Set up seated at sink to brush teeth/comb hair.) Shower/Bathe Self (QC): 3 Upper Body Dressing (QC): 5 Lower Body Dressing (QC): 3 On/Off Footwear (QC): 4 Toileting Hygiene (QC): 4 (CGA in stance using toilet tongs.) Toilet Transfer (QC): 4 Assessment/Plan Assessment and Plan Assess & Plan/Chief Complaint Assessment: Status post lumbar spine decompression surgery POD # [address] Delong at [facility] in [place] Syncope but has recurrent episodes in the past at home Orthostasis episodes in the past chronic but improved since DC HCTZ but she does not think there is a correlation? HTN labile levels and will start Norvasc 5mg PO BID today 03/07/19 Renal insufficiency improved Hyponatremia improved with fluid restriction and DC HCTZ so lifted fluid restriction since sodium level normal Anemia s/p 1 unit of blood at [facility] and received 1 unit Saturday since hemoglobin 7.1 and has cardiac risk factors Saturday 9.8 Dehydration on admit resolved with IV fluids Chronic AF Plan: Home meds except Plavix due to recent spine surgery but restarting Plavix today SCD's Cardiology evaluation appreciated Fluid restriction DC Venofer DC after 1 dose since IV infiltrated 1 unit of blood Saturday with Lasix afterwards Inpatient rehabilitation to continue recovery Hold Nehemiah for now (1) Status post lumbar spine surgery for decompression of spinal cord (2) Iron deficiency (3) Anemia (4) Anxiety (5) Hyponatremia (6) Renal insufficiency (7) Syncope (8) Hypertension (9) Orthostasis (10) Constipation (11) Transfusion of blood during current hospitalisation PIERCE JAMES DO Mar 07, 2019 12:40
[2019-03-07 15:51] VITALS: BP 167/69
[2019-03-07 17:12] VITALS: BP 157/80
--- NOTE | 2019-03-07 18:00 | NUR ---
pt up to dining room to eat supper, gets tired, returns to room for bed and dressing change. previous dressing removed, incision well approximated. voices, "itchy". area cleansed, lotion applied to back, island dressing applied to cover jose. itching resolves. will continue to monitor.
[2019-03-07] MEDS: GABAPENTIN 100 MG (NEURONTIN) CAP PO SCH (20:36)
[2019-03-07] MEDS: POLYETHYLENE GLYCOL 17 GM (MIRALAX) PACK PO SCH (20:38)
[2019-03-08] MEDS: HYDROcodone/APAP 5 MG/325 MG (LORTAB) TAB PO PRN ×6 (01:04→22:06)
--- NOTE | 2019-03-08 01:30 | NUR ---
Pt BP 194/79. PRN hydralazine given. Pt sitting up in chair with daughter in room.
[2019-03-08 02:10] VITALS: BP 155/81
[2019-03-08 06:37] VITALS: BP 168/80
[2019-03-08] MEDS: FLECAINIDE 100 MG (TAMBOCOR) TAB PO SCH ×2 (08:19→20:25)
[2019-03-08] MEDS: amLODIPine 5 MG (NORVASC) TAB PO SCH ×2 (08:19→20:27)
[2019-03-08] MEDS: CLOPIDOGREL 75 MG (PLAVIX) TABLET PO SCH (08:19)
[2019-03-08] MEDS: SENNA W/DOCUSATE (SENOKOT S) TABLET PO SCH ×2 (08:19→20:25)
[2019-03-08] MEDS: DOCUSATE SODIUM 100 MG (COLACE) CAP PO SCH ×2 (08:19→20:27)
[2019-03-08] MEDS: DICLOFENAC 1% GEL 100 GM (VOLTAREN) TUBE TOP SCH ×3 (08:20→20:33)
[2019-03-08] MEDS: BACLOFEN 10 MG (LIORESAL) TAB PO PRN ×2 (08:20→22:55)
[2019-03-08] MEDS: ALLOPURINOL 100 MG (ZYLOPRIM) TAB PO SCH (08:20)
[2019-03-08] MEDS: BISACODYL 10 MG SUPP (DULCOLAX) PR PRN (12:02)
--- NOTE | 2019-03-08 13:35 | PM&R Progress Note ---
Subjective HPI/CC On Admission Date Seen by Provider: Mar 08, 2019 Time Seen by Provider: 11:50 Subjective/Events-last exam Pain is not too good today Neurontin 100mg at night maintained No episodes of near syncope since DC HCTZ but she reports those episodes have been present for years and not a factor with the HCTZ No falls reported Patient concerned about night time issues so I suggested they monitor her at night when she goes home to be sure she has adequate safety Dr Baljeet ochoa Saturday03/10/19 and hopefully we will get direction from him marco antonio simms the next step in the treatment plan. Checked meds and labs Reviewed therapy notes Conferred with transportation lead of Systems General: Fatigue Musculoskeletal: back pain, leg pain Objective Exam Vital Signs Vital Signs Date Time Temp Pulse Resp B/P (MAP) Pulse Ox O2 Delivery O2 Flow Rate FiO2 03/08/19 20:33 37.0 03/08/19 17:25 81 18 157/81 (106) 97 Room Air 03/05/19 15:00 21 Capillary Refill : Less Than 3 Seconds General Appearance: No Apparent Distress, WD/WN, Chronically ill, Obese HEENT: PERRL/EOMI, Normal ENT Inspection, Pharynx Normal Neck: Full Range of Motion, Normal Inspection, Non Tender, Supple, Carotid Bruit Respiratory: Chest Non Tender, Lungs Clear, Normal Breath Sounds, No Accessory Muscle Use, No Respiratory Distress Cardiovascular: Regular Rate, Rhythm, No Edema, No Gallop, No JVD, No Murmur, Normal Peripheral Pulses Gastrointestinal: Normal Bowel Sounds, No Organomegaly, No Pulsatile Mass, Non Tender, Soft Back: Decreased Range of Motion Extremity: Normal Capillary Refill, Normal Inspection, Normal Range of Motion (limited from back pain), Non Tender, No Calf Tenderness, No Pedal Edema Neurologic/Psychiatric: Alert, Oriented x3, No Motor/Sensory Deficits, machine adjuster II- XII Norm as Tested, Depressed Affect, Motor Weakness (motor weakness of lower legs from spinal surgery 05/06) Skin: Normal Color, Warm/Dry Lymphatic: No Adenopathy Results/Procedures Lab Patient resulted labs reviewed. FIM Transfers Therapy Code Descriptions/Definitions Functional [place] Measure: 0=Not Assessed/NA 4=Minimal Assistance 1=Total Assistance 5=Supervision or Setup 2=Maximal Assistance 6=Modified [place] 3=Moderate Assistance 7=Complete IndependenceSCALE: Activities may be completed with or without assistive devices. 1-Cvnualbxsc-yrrwizn completes the activity by him/herself with no assistance from a helper. 5-Set-up or Clean-up Assistance-helper sets up or cleans up; patient completes activity. [place] assists only prior to or following the activity. 4-Supervision or Touching Assistance-helper provides verbal cues and/or touching/steadying and/or contact guard assistance as patient completes activity. Assistance may be provided throughout the activity or intermittently. 3-Partial/Moderate Assistance-helper does LESS THAN HALF the effort. [place] lifts, holds or supports trunk or limbs, but provides less than half the effort. 2-Substantial/Maximal Assistance-helper does MORE THAN HALF the effort. [place] lifts or holds trunk or limbs and provides more than half the effort. 6-Xhewvpzpy-yvrdjb does ALL the effort. Patient does none of the effort to complete the activity. Or, the assistance of 2 or more helpers is required for the patient to complete the activity. If activity was not attempted, code reason: 7-Patient Refused. 9-Not Applicable-not attempted and the patient did not perform the activity before the current illness, exacerbation or injury. 10-Not Attempted due to Environmental Limitations-(lack of equipment, weather restraints, etc.). 88-Not Attempted due to Medical Conditions or Safety Concerns. Roll Left to Right (QC): 5 Sit to Lying (QC): 5 Sit to Stand (QC): 4 (CGA and skilled verb inst for hand placement, technique and safety) Chair/Diq-sl-Txaql Xfer(QC): 5 Car Transfer (QC): 5 Gait Training Does the Patient Walk?: Yes Distance: 200 Walk 10 feet (QC): 4 Walk 50 ft with 2 Turns(QC): 4 Walk 150 ft (QC): 4 Walking 10ft/uneven surface-QC: 3 Gait Persons Needed: 1 Gait Assistive Device: FWW Wheelchair Training Does the Pt Use a Wheelchair?: No Stair Training Stair Training: Handrails/: 2 handrails #of Steps: 3 1 Step (curb) (QC): 3 4 Steps (QC): 88 12 Steps (QC): 88 Stairs: Pattern: Step to Balance Picking up an Object (QC): 88 ADL-Treatment Eating (QC): 6 Oral Hygiene (QC): 5 (Set up seated at sink to brush teeth/comb hair.) Shower/Bathe Self (QC): 3 Upper Body Dressing (QC): 5 Lower Body Dressing (QC): 3 On/Off Footwear (QC): 4 Toileting Hygiene (QC): 4 (CGA in stance using toilet tongs.) Toilet Transfer (QC): 4 Assessment/Plan Assessment and Plan Assess & Plan/Chief Complaint Assessment: Status post lumbar spine decompression surgery POD # [address] Delong at [facility] in [place] Syncope but has recurrent episodes in the past at home Orthostasis episodes in the past chronic but improved since DC HCTZ but she does not think there is a correlation? HTN labile levels and will start Norvasc 5mg PO BID today 03/07/19 Renal insufficiency improved Hyponatremia improved with fluid restriction and DC HCTZ so lifted fluid restriction since sodium level normal Anemia s/p 1 unit of blood at [facility] and received 1 unit Saturday since hemoglobin 7.1 and has cardiac risk factors Saturday 9.8 Dehydration on admit resolved with IV fluids Chronic AF Plan: Home meds except Plavix due to recent spine surgery but restarting Plavix today SCD's Cardiology evaluation appreciated Fluid restriction DC Venofer DC after 1 dose since IV infiltrated 1 unit of blood Saturday with Lasix afterwards Inpatient rehabilitation to continue recovery Hold Nehemiah for now Check labs in am (1) Status post lumbar spine surgery for decompression of spinal cord (2) Iron deficiency (3) Anemia (4) Anxiety (5) Hyponatremia (6) Renal insufficiency (7) Syncope (8) Hypertension (9) Orthostasis (10) Constipation (11) Transfusion of blood during current hospitalisation PIERCE JAMES DO Mar 08, 2019 13:35
--- NOTE | 2019-03-08 15:36 | Cardiology Progress Note ---
Cardiology SOAP Progress Note Subjective: Still complains of backache. No cardiac complaints. Objective: I&O/Vital Signs 03/08/19 03/08/19 06:37 09:00 Temp 36.6 Pulse 74 Resp 20 B/P (MAP) 168/80 (109) Pulse Ox 96 O2 Delivery Room Air Room Air 03/08/19 00:00 Intake Total 840 ml Balance 840 ml Constitutional: No appears stated age; AAO x 3; No apparent distress, No PERRL, No well-developed, No well-nourished, No other Respiratory: No accessory muscle use, No respiratory distress, No chest tender, No chest expansion is symmetric; chest is bilaterally symmetric; No lungs clear to percussion; lungs clear to auscultation; No crackles, No rhonchi, No rales, No stridor, No wheezing, No pleural rub, No other Cardiovascular: regular rate-rhythm, S1 and S2 Gastrointestional: soft, audible bowel sounds Extremities: normal range of motion, non-tender, normal inspection, no lower extremity edema bilateral Neurologic/Psychiatric: no motor/sensory deficits, alert, normal mood/affect, oriented x 3 Skin: normal color A/P: Assessment/Dx: Recent spine surgery, Paroxysmal atrial fibrillation, Chronic kidney disease, Anemia, Hyponatremia, Syncope. Orthostatic hypotension Plan: Recent spine surgery, DVT prophylaxis. Paroxysmal atrial fibrillation, not on oral anticoagulation due to recent spine surgery. Flecainide as an outpatient. Chronic kidney disease, defer to the primary team. Anemia, transfusion. Hyponatremia, unclear etiology. Syncope. Telemetry, echocardiogram. Telemetry shows no arrhythmias. Echocardiogram done 02/26/2019 shows hyperdynamic LV function with moderate diastolic dysfunction. Dehydration is likely. Generous IV fluid is recommended. Orthostatic hypotension, initially I recommended to start Florinef. However the blood pressure has been stable therefore we have not given Florinef. Follow-up with Dr. Baltazar for cardiology after discharge. Thank you for your consultation. Please call me if you have any questions. Malcom Lynn MD, FACP, FACC, FSCAI, FHRS, CCDS Interventional Cardiology Cardiac Electrophysiology Vascular Medicine and Endovascular Interventions Ludy LYNN MD Mar 08, 2019 15:36
[2019-03-08 17:25] VITALS: BP 157/81
[2019-03-08] MEDS: GABAPENTIN 100 MG (NEURONTIN) CAP PO SCH (20:26)
[2019-03-08] MEDS: ALPRAZolam 0.25 MG (XANAX) TAB PO PRN (20:27)
[2019-03-08] MEDS: POLYETHYLENE GLYCOL 17 GM (MIRALAX) PACK PO SCH (22:27)
[2019-03-09] MEDS: HYDROcodone/APAP 5 MG/325 MG (LORTAB) TAB PO PRN ×4 (02:57→19:27)
[2019-03-09 05:45] VITALS: BP 165/84
[2019-03-09 05:59] LABS: BASOPHILS # (AUTO) 0.1 10^3/uL (0.0-0.1); BASOPHILS % (AUTO) 1 % (0-10); EOSINOPHILS # (AUTO) 0.7 10^3/uL (0.0-0.3); EOSINOPHILS % (AUTO) 8 % (0-10); HEMATOCRIT 30 % (35-52); HEMOGLOBIN 9.9 G/DL (11.5-16.0); LYMPHOCYTES # (AUTO) 1.6 X 10^3 (1.0-4.0); LYMPHOCYTES % (AUTO) 19 % (12-44); MEAN CORPUSCULAR HEMOGLOBIN 30 PG (25-34); MEAN CORPUSCULAR HGB CONC 33 G/DL (32-36); MEAN CORPUSCULAR VOLUME 92 FL (80-99); MONOCYTES # (AUTO) 0.8 X 10^3 (0.0-1.0); MONOCYTES % (AUTO) 10 % (0-12); NEUTROPHILS # (AUTO) 5.3 X 10^3 (1.8-7.8); NEUTROPHILS % (AUTO) 62 % (42-75); PLATELET COUNT 373 10^3/uL (130-400); RED CELL DISTRIBUTION WIDTH 15.4 % (10.0-14.5); WHITE BLOOD COUNT 8.5 10^3/uL (4.3-11.0)
[2019-03-09 06:21] LABS: ALBUMIN 3.7 GM/DL (3.2-4.5); BILIRUBIN,TOTAL 0.3 MG/DL (0.1-1.0); CALCIUM 10.2 MG/DL (8.5-10.1); CREATININE SERUM 1.73 MG/DL (0.60-1.30); TOTAL PROTEIN 6.4 GM/DL (6.4-8.2)
[2019-03-09] MEDS: amLODIPine 5 MG (NORVASC) TAB PO SCH ×2 (07:56→21:13)
[2019-03-09] MEDS: SENNA W/DOCUSATE (SENOKOT S) TABLET PO SCH ×2 (07:56→21:13)
[2019-03-09] MEDS: DOCUSATE SODIUM 100 MG (COLACE) CAP PO SCH ×2 (07:57→21:12)
[2019-03-09] MEDS: CLOPIDOGREL 75 MG (PLAVIX) TABLET PO SCH (07:57)
[2019-03-09] MEDS: ALLOPURINOL 100 MG (ZYLOPRIM) TAB PO SCH (07:57)
[2019-03-09] MEDS: DICLOFENAC 1% GEL 100 GM (VOLTAREN) TUBE TOP SCH ×4 (07:58→21:32)
[2019-03-09] MEDS: FLECAINIDE 100 MG (TAMBOCOR) TAB PO SCH ×2 (07:58→21:13)
[2019-03-09] MEDS: BACLOFEN 10 MG (LIORESAL) TAB PO PRN ×2 (08:20→19:27)
--- NOTE | 2019-03-09 09:39 | PM&R Progress Note ---
Subjective HPI/CC On Admission Date Seen by Provider: Mar 09, 2019 Time Seen by Provider: 08:45 Subjective/Events-last exam Pt will need a four-wheeled walker. Needs home health out of [facility]. Slept better last night. Left leg pain is much improved. Daughter would like her discharged on Saturday but she has an appointment with Dr. Delong on Saturday afternoon so will discharge her tomorrow, then she can go to her appointment and home from there. Hgb good at 9.9, Creatinine at 1.37. Checked meds and labs Reviewed therapy notes Conferred with team otr truck driver of Systems Musculoskeletal: back pain Objective Exam Vital Signs Vital Signs Date Time Temp Pulse Resp B/P (MAP) Pulse Ox O2 Delivery O2 Flow Rate FiO2 03/09/19 20:30 Room Air 03/09/19 15:54 36.4 70 14 153/80 (104) 95 03/05/19 15:00 21 Capillary Refill : Less Than 3 SecondsLess Than 3 Seconds General Appearance: No Apparent Distress, WD/WN, Chronically ill, Obese HEENT: PERRL/EOMI, Normal ENT Inspection, Pharynx Normal Neck: Full Range of Motion, Normal Inspection, Non Tender, Supple, Carotid Bruit Respiratory: Chest Non Tender, Lungs Clear, Normal Breath Sounds, No Accessory Muscle Use, No Respiratory Distress Cardiovascular: Regular Rate, Rhythm, No Edema, No Gallop, No JVD, No Murmur, Normal Peripheral Pulses Gastrointestinal: Normal Bowel Sounds, No Organomegaly, No Pulsatile Mass, Non Tender, Soft Back: Decreased Range of Motion Extremity: Normal Capillary Refill, Normal Inspection, Normal Range of Motion (limited from back pain), Non Tender, No Calf Tenderness, No Pedal Edema Neurologic/Psychiatric: Alert, Oriented x3, No Motor/Sensory Deficits, sharepoint developer II- XII Norm as Tested, Depressed Affect, Motor Weakness (motor weakness of lower legs from spinal surgery 3/) Skin: Normal Color, Warm/Dry Lymphatic: No Adenopathy Results/Procedures Lab Patient resulted labs reviewed. FIM Transfers Therapy Code Descriptions/Definitions Functional [place] Measure: 0=Not Assessed/NA 4=Minimal Assistance 1=Total Assistance 5=Supervision or Setup 2=Maximal Assistance 6=Modified [place] 3=Moderate Assistance 7=Complete IndependenceSCALE: Activities may be completed with or without assistive devices. 3-Uqjibdjcrk-tsbuimw completes the activity by him/herself with no assistance from a helper. 5-Set-up or Clean-up Assistance-helper sets up or cleans up; patient completes activity. [place] assists only prior to or following the activity. 4-Supervision or Touching Assistance-helper provides verbal cues and/or touching/steadying and/or contact guard assistance as patient completes activity. Assistance may be provided throughout the activity or intermittently. 3-Partial/Moderate Assistance-helper does LESS THAN HALF the effort. [place] lifts, holds or supports trunk or limbs, but provides less than half the effort. 2-Substantial/Maximal Assistance-helper does MORE THAN HALF the effort. [place] lifts or holds trunk or limbs and provides more than half the effort. 0-Winhvfmmg-pkigbz does ALL the effort. Patient does none of the effort to complete the activity. Or, the assistance of 2 or more helpers is required for the patient to complete the activity. If activity was not attempted, code reason: 7-Patient Refused. 9-Not Applicable-not attempted and the patient did not perform the activity before the current illness, exacerbation or injury. 10-Not Attempted due to Environmental Limitations-(lack of equipment, weather restraints, etc.). 88-Not Attempted due to Medical Conditions or Safety Concerns. Roll Left to Right (QC): 5 Sit to Lying (QC): 5 Sit to Stand (QC): 4 (CGA and skilled verb inst for hand placement, technique and safety) Chair/Yfg-sw-Unhte Xfer(QC): 5 Car Transfer (QC): 5 Gait Training Does the Patient Walk?: Yes Distance: 200 Walk 10 feet (QC): 4 Walk 50 ft with 2 Turns(QC): 4 Walk 150 ft (QC): 4 Walking 10ft/uneven surface-QC: 3 Gait Persons Needed: 1 Gait Assistive Device: FWW Wheelchair Training Does the Pt Use a Wheelchair?: No Stair Training Stair Training: Handrails/: 2 handrails #of Steps: 3 1 Step (curb) (QC): 3 4 Steps (QC): 88 12 Steps (QC): 88 Stairs: Pattern: Step to Balance Picking up an Object (QC): 88 ADL-Treatment Eating (QC): 6 Oral Hygiene (QC): 5 (Set up seated at sink to brush teeth/comb hair.) Shower/Bathe Self (QC): 3 Upper Body Dressing (QC): 5 Lower Body Dressing (QC): 3 On/Off Footwear (QC): 4 Toileting Hygiene (QC): 4 (CGA in stance using toilet tongs.) Toilet Transfer (QC): 4 Assessment/Plan Assessment and Plan Assess & Plan/Chief Complaint Assessment: Status post lumbar spine decompression surgery POD # [address] Delong at [facility] [place] in [place] Syncope but has recurrent episodes in the past at home Orthostasis episodes in the past chronic but improved since DC HCTZ but she does not think there is a correlation? HTN labile levels and will start Norvasc 5mg PO BID today 03/07/19 Renal insufficiency improved Hyponatremia improved with fluid restriction and DC HCTZ so lifted fluid restriction since sodium level normal Anemia s/p 1 unit of blood at [facility] and received 1 unit Saturday since hemoglobin 7.1 and has cardiac risk factors Saturday 9.9 Dehydration on admit resolved with IV fluids Chronic AF Plan: Home meds except Plavix due to recent spine surgery but restarting Plavix today SCD's Cardiology evaluation appreciated Fluid restriction DC Venofer DC after 1 dose since IV infiltrated 1 unit of blood Saturday with Lasix afterwards Inpatient rehabilitation to continue recovery Hold Nehemiah for now DC Saturday (1) Status post lumbar spine surgery for decompression of spinal cord (2) Iron deficiency (3) Anemia (4) Anxiety (5) Hyponatremia (6) Renal insufficiency (7) Syncope (8) Hypertension (9) Orthostasis (10) Constipation (11) Transfusion of blood during current hospitalisation PIERCE JAMES DO Mar 09, 2019 09:39
--- NOTE | 2019-03-09 11:09 | Physical Therapy Daily Note ---
PT Daily Note-Current Subjective Pt. agrees to Rx, States she feels so much better and is moving better. Pt. states she is anxious to DC Pain Location: No Pain Reported Mental Status Patient Orientation: Normal For Age Attachments: Other-See Comments (back brace, donns indep) Transfers SCALE: Activities may be completed with or without assistive devices. 8-Yspggnghma-xednscp completes the activity by him/herself with no assistance from a helper. 5-Set-up or Clean-up Assistance-helper sets up or cleans up; patient completes activity. [place] assists only prior to or following the activity. 4-Supervision or Touching Assistance-helper provides verbal cues and/or touching/steadying and/or contact guard assistance as patient completes activity. Assistance may be provided throughout the activity or intermittently. 3-Partial/Moderate Assistance-helper does LESS THAN HALF the effort. [place] lifts, holds or supports trunk or limbs, but provides less than half the effort. 2-Substantial/Maximal Assistance-helper does MORE THAN HALF the effort. [place] lifts or holds trunk or limbs and provides more than half the effort. 4-Yesmffann-zvwyxj does ALL the effort. Patient does none of the effort to complete the activity. Or, the assistance of 2 or more helpers is required for the patient to complete the activity. If activity was not attempted, code reason: 7-Patient Refused. 9-Not Applicable-not attempted and the patient did not perform the activity before the current illness, exacerbation or injury. 10-Not Attempted due to Environmental Limitations-(lack of equipment, weather restraints, etc.). 88-Not Attempted due to Medical Conditions or Safety Concerns. Roll Left & Right (QC): 6 Sit to Lying (QC): 6 Lying to Sitting/Side of Bed(Q: 6 Sit to Stand (QC): 6 Chair/Xbr-cm-Kruoz Xfer(QC): 6 Toilet Transfer (QC): 6 Car Transfer (QC): 6 pt. uses UEs to lift LEs in out car TRFs but with greater ease than last week, much improved Weight Bearing Right Lower Extremity: Right Full Weight Bearing Left Lower Extremity: Left Full Weight Bearing Gait Training Does the Patient Walk?: Yes Walk 10 feet (QC): 6 Walk 50 ft with 2 Turns(QC): 6 Walk 150 ft (QC): 6 Walking 10ft/uneven surface-QC: 6 Gait Persons Needed: 0 Gait Assistive Device: FWW Wheelchair Training Does the Pt Use a Wheelchair?: No Stair Training Stair Training: Handrails/: 2 handrails #of Steps: 4 1 Step (curb) (QC): 5 4 Steps (QC): 5 12 Steps (QC): 88 Stairs: Pattern: Step to pts. dtr present and was educated in safety and how to assist pt. if needed. sequence etc also Balance Picking up an Object (QC): 88 Exercises Supine Ex: Bridging, Ankle pumps, Quad Set, Rolling, Glut sets, Heel Slides, Short Arc Quads, Scooting, Straight leg raise (x3), Hip abd/add Supine Reps: 15 Seated Therapy Exercises: Ankle pumps, Sit to stand, Long arc quads, Hip flexion, Hip abd/add Seated Reps: 10 NuStep Minutes: 8 NuStep Workload: 4 Treatments pt. toileted and washed hands mod I as observed Assessment Current Status: Good Progress PT Short Term Goals Short Term Goals Time Frame: Mar 07, 2019 Roll Left & Right: 6 Sit to lyin Lying to sitting on side of be: 6 Sit to stand: 6 PT Still Operator Helper Goals Longterm Goals PT Still Operator Helper Goals Time Frame: Mar 14, 2019 Roll Left & Right (QC): 6 Sit to Lying (QC): 6 Lying-Sitting on Side/Bed(QC): 6 Sit to Stand (QC): 6 Chair/Pvw-ep-Lflky Xfer(QC): 6 Toilet Transfer (QC): 6 Car Transfer (QC): 6 Does the Patient Walk: Yes Walk 10 feet (QC): 6 Walk 50ft with 2 Turns (QC): 6 Walk 150 ft (QC): 6 Walking 10ft on Uneven Surface: 6 1 Step (curb) (QC): 6 4 Steps (QC): 4 12 Steps (QC): 4 Picking up an Object (QC): 88 Does the Pt use WC or Scooter?: No Wheel 50 feet with 2 turns (QC: 9 Wheel 150 feet: 9 PT Plan Treatment/Plan Treatment Plan: Continue Plan of Care Treatment Plan: Bed Mobility, Education, Functional Activity Dirk, Functional Strength, Group Therapy, Gait, Safety, Therapeutic Exercise, Transfers Treatment Duration: Mar 14, 2019 Frequency: Modified Program (IRF) Estimated Hrs Per Day: 1.5 hours per day Patient and/or Family Agrees t: Yes Safety Risks/Education Patient Education: Gait Training, Transfer Techniques, Steps, Correct Positioning, Disease Process, Safety Issues Teaching Recipient: Patient Teaching Methods: Demonstration, Discussion Response to Teaching: Verbalize Understanding, Return Demonstration, Reinforcement Needed Time/GCodes Time In: 1000 Time Out: 1100 Total Billed Treatment Time: 60 Total Billed Treatment 1,FA30m,GT15m,EX25m GINA MCMAHON PIT HOIST OPERATOR Mar 09, 2019 11:09
--- NOTE | 2019-03-09 11:15 | NUR ---
DISCHARGE PLANNING Visited with patient and her daughter/DPOA Vika Neves this a.m. Patient will discharge tomorrow to coincide with her followup appointment with Dr. Delong, Linda will transport. Patient will be staying with Vika immediately following discharge until such time as they believe she can return home as before: Vika Neves [address] [place] [address] Presented Medicare Compare for [facility] agencies in patient service area, [facility] To be coordinated with [facility] as noted once orders received. DME: FWW will be coordinated with patient/daughter preferred agency, [facility], as soon as order obtained. Patient is also interested in a bed cane, confirmed HME has in stock and that it is not a covered item but rather self pay at $89.00. PHARMACY - Rx: Will be transmitted to patient's choice of [facility], they understand they will have paper Rx for Schedule II meds. DISABILITY PLACARD: Temporary placard prepared and will be given to patient/family for next steps. Updated PT systems engineering manager of discharge confirmation. Addendum: 03/09/19 at 1123 by GARRISON RIOS IMM2 presented to patient and daughter Vika this a.m., signed freely, charted. No intention to appeal.
--- NOTE | 2019-03-09 12:24 | Occupational Ther Daily Note ---
OT Current Status-Daily Note Subjective No pain reported. Appearance Pt. on toilet when OT entered room. Agrees to treatment. Mental Status/Objective Patient Orientation: Person, Place ADL-Treatment Therapy Code Descriptions/Definitions Functional [place] Measure: 0=Not Assessed/NA 4=Minimal Assistance 1=Total Assistance 5=Supervision or Setup 2=Maximal Assistance 6=Modified [place] 3=Moderate Assistance 7=Complete IndependenceSCALE: Activities may be completed with or without assistive devices. 3-Rsribpzomv-fwpjwnr completes the activity by him/herself with no assistance from a helper. 5-Set-up or Clean-up Assistance-helper sets up or cleans up; patient completes activity. [place] assists only prior to or following the activity. 4-Supervision or Touching Assistance-helper provides verbal cues and/or touching/steadying and/or contact guard assistance as patient completes activity. Assistance may be provided throughout the activity or intermittently. 3-Partial/Moderate Assistance-helper does LESS THAN HALF the effort. [place] lifts, holds or supports trunk or limbs, but provides less than half the effort. 2-Substantial/Maximal Assistance-helper does MORE THAN HALF the effort. [place] lifts or holds trunk or limbs and provides more than half the effort. 4-Oqgkijzir-nuqiyz does ALL the effort. Patient does none of the effort to complete the activity. Or, the assistance of 2 or more helpers is required for the patient to complete the activity. If activity was not attempted, code reason: 7-Patient Refused. 9-Not Applicable-not attempted and the patient did not perform the activity before the current illness, exacerbation or injury. 10-Not Attempted due to Environmental Limitations-(lack of equipment, weather restraints, etc.). 88-Not Attempted due to Medical Conditions or Safety Concerns. Eating (QC): 6 Oral Hygiene (QC): 5 (Set up seated at sink.) Shower/Bathe Self (QC): 4 (SBA in shower with LH sponge.) Upper Body Dressing (QC): 5 (Set up) Lower Body Dressing (QC): 4 (SBA to don underwear and pants using AE.) On/Off Footwear: 3 (Min assist to don socks and shoes with AE.) Toileting Hygiene (QC): 4 (SBA to toilet self with toilet tongs in stance.) Toilet Transfer (QC): 4 (SBA) Pt. completed ADLs in shower room. After this, ambulates with SBA and walker to therapy gym. No pain reported. Completed 10 minutes on arm bike with one rest break needed. Tolerated this well. Pt. and OT talked about needs for home. Pt. will need a walker basket, a wider walker, and a hip kit. Pt. is to stay with daughter for awhile before going back to her own house. Pt. ambulated back to room and all needs met. Education OT Patient Education: Correct positioning, Exercise program, Instructions to caregiver, Modified ADL techniques, Progress toward Goal/Update tx plan, Purpose of tx/functional activities, Reviewed precautions, Rehab process, Transfer techniques, Use of adapted equipment Teaching Recipient: Patient Teaching Methods: Demonstration, Discussion Response to Teaching: Verbalize Understanding, Return Demonstration OT Penitentiary Goals Penitentiary Goals Time Frame: Mar 14, 2019 Eating (QC): 6 Oral Hygiene (QC): 6 Toileting Hygiene (QC): 6 Shower/Bathe Self (QC): 6 Upper Body Dressing (QC): 6 Lower Body Dressing (QC): 6 On/Off Footwear (QC): 6 Additional Goals: 1-Demonstrate ADL Tasks, 2-Verbalize Understanding, 3-ImproveStrength/Dirk 1=Demonstrate adherence to instructed precautions during ADL tasks. 2=Patient will verbalize/demonstrate understanding of assistive devices/modifications for ADL. 3=Patient will improve strength/tolerance for activity to enable patient to perform ADL's. OT Education/Plan Problem List/Assessment Assessment: Decreased Activ Tolerance, Impaired I ADL's, Impaired Self-Care Skills Discharge Recommendations Plan/Recommendations: Continue POC Therapy Discharge Recommendati: Home & Family, Post Acute OT Equpiment Recommendations-D/C: Extended Shower Sprayer, Hip Kit, Walker Bag or Basket Comment Wider walker. Treatment Plan/Plan of Care Treatment,Training & Education: Yes Patient would benefit from OT for education, treatment and training to promote independence in ADL's, mobility, safety and/or upper extremity function for ADL's. Plan of Care: ADL Retraining, Caregiver Training, Functional Mobility, Group Exercise/Act as Ind, UE Funct Exercise/Act Treatment Duration: Mar 14, 2019 Frequency: At least 5 of 7 days/Wk (IRF) Estimated Hrs Per Day: 1.5 hours per day Agreement: Yes Rehab Potential: Good Time/GCodes Start Time: 08:00 Stop Time: 09:30 Total Time Billed (hr/min): 90 Billed Treatment Time 1, ADL x 60minutes, FA x 15minutes, Ex x 15minutes RADHA JACOME OT Mar 09, 2019 12:24
--- NOTE | 2019-03-09 12:54 | Physician Query Clarification ---
PQ-Intro New Diagnosis Admission/Discharge Admission Date: Feb 28, 2019 at 09:15 Discharge Date: The medical record reflects the following clinical scenario: History/Risk Factors: s/p spinal decompression Clinical Findings: leg weakness s/p spinal decompression Treatment: Rehab Question: What condition best reflects the above clinical scenario? Please document a response in the Progress Noter or Discharge Summary. 1. Lumbar spinal stenosis with neurogenic claudication 2. Leg weakness s/p spinal decompression 3. Other, with explanation of the clinical findings. 4. Clinically undetermined, no explanation for the clinical findings. PHYSICIAN RESPONSE What condition reflects above: 1 Please remember a lack of response to the above will prompt a phone page by CDI/Coding staff. In responding to this query, please exercise your independent professional judgment. The purpose of this communication is to more accurately reflect the complexity of your patients condition. The fact that a question is asked does not imply that any particular answer is desired or expected. Thank you for your timely response to this clarification. Requestors name: Sowmya THIS PHYSICIAN QUERY FORM IS A PERMANENT PART OF THE MEDICAL RECORD SOWMYA CHANEY Mar 09, 2019 12:54 PIERCE JAMES DO Mar 10, 2019 06:08
[2019-03-09 12:58] VITALS: BP 165/84
--- NOTE | 2019-03-09 13:07 | NUR ---
"RD ASSESSMENT PMHx: afib; hypercholesterolemia; HTN; hypotension; chronic constipation; gout PT INTERACTION: Pt was awake and pleasant during nutrition follow-up. Pt states she has been eating better since last assessment. Note avg PO intake of 70% x4d, per chart review. Pt states tolerating her nutrition supplementation, but asked to have it cancelled because she feels she is eating better. Pt states no recent issues with n/v/d since last assessment. Pt states having recent issues with constipation, but this is a chronic condition she has. Note last BM was 03/08 and pt is currently on bowel regimen of senna BID; colace BID; and miralax HS, per chart review. ABNORMAL NUTRITION-RELATED LAB VALUES LOW: HIGH: BUN 35; cr 1.73; Ca 10.2 Est. kcal needs: 8756-5797 kcal | 15-18 kcal/kg Est. Pro needs: 92-111 g Pro | 1.0-1.2 g Pro/kg PES STATEMENT: Inadequate oral intake (NI-2.1) related to constipation as evidenced by pt interview | avg PO intake 70% x4d INTERVENTION: Continue with current diet order of Regular diet. D/C current supplementation order of Glucerna with meals BID. Will continue to follow and reassess as pt needs and status change. MONITOR/EVALUATE: PO Intake; Plan of Care; Hydration Status; Weight Status; Lab Values Leslie Mahmood, MS, RD, LD"
--- NOTE | 2019-03-09 14:21 | Physical Therapy Daily Note ---
PT Daily Note-Current Subjective Pt. states she is tired this afternoon but wants to get up and move around. Pt. states she has less and less pain and feels remarkably better these past few days. Pain Location: No Pain Reported Mental Status Patient Orientation: Normal For Age Attachments: Other-See Comments (donns doffs back brace indep) Transfers SCALE: Activities may be completed with or without assistive devices. 2-Pcqhktumjo-ktihccr completes the activity by him/herself with no assistance from a helper. 5-Set-up or Clean-up Assistance-helper sets up or cleans up; patient completes activity. [place] assists only prior to or following the activity. 4-Supervision or Touching Assistance-helper provides verbal cues and/or touching/steadying and/or contact guard assistance as patient completes activity. Assistance may be provided throughout the activity or intermittently. 3-Partial/Moderate Assistance-helper does LESS THAN HALF the effort. [place] lifts, holds or supports trunk or limbs, but provides less than half the effort. 2-Substantial/Maximal Assistance-helper does MORE THAN HALF the effort. [place] lifts or holds trunk or limbs and provides more than half the effort. 7-Gixupnedt-qukkqd does ALL the effort. Patient does none of the effort to complete the activity. Or, the assistance of 2 or more helpers is required for the patient to complete the activity. If activity was not attempted, code reason: 7-Patient Refused. 9-Not Applicable-not attempted and the patient did not perform the activity before the current illness, exacerbation or injury. 10-Not Attempted due to Environmental Limitations-(lack of equipment, weather restraints, etc.). 88-Not Attempted due to Medical Conditions or Safety Concerns. indep all TRFs Weight Bearing Right Lower Extremity: Right Full Weight Bearing Left Lower Extremity: Left Full Weight Bearing Gait Training Gait Assistive Device: FWW 165x2 SBA to MOD I Exercises Standing: Hip Abduction, Hamstring curls, Heel/toe raises, Marching, Mini squats, Sit to Stand Standing Reps: 12 Treatments toileted Mod I Assessment Current Status: Good Progress near up ad danika status PT Short Term Goals Short Term Goals Time Frame: Mar 07, 2019 Roll Left & Right: 6 Sit to lyin Lying to sitting on side of be: 6 Sit to stand: 6 PT Steam Press Tender Goals Long-Term Goals PT Long-Term Goals Time Frame: Mar 14, 2019 Roll Left & Right (QC): 6 Sit to Lying (QC): 6 Lying-Sitting on Side/Bed(QC): 6 Sit to Stand (QC): 6 Chair/Rhc-hs-Zfqje Xfer(QC): 6 Toilet Transfer (QC): 6 Car Transfer (QC): 6 Does the Patient Walk: Yes Walk 10 feet (QC): 6 Walk 50ft with 2 Turns (QC): 6 Walk 150 ft (QC): 6 Walking 10ft on Uneven Surface: 6 1 Step (curb) (QC): 6 4 Steps (QC): 4 12 Steps (QC): 4 Picking up an Object (QC): 88 Does the Pt use WC or Scooter?: No Wheel 50 feet with 2 turns (QC: 9 Wheel 150 feet: 9 PT Plan Treatment/Plan Treatment Plan: Continue Plan of Care Treatment Plan: Bed Mobility, Education, Functional Activity Dirk, Functional Strength, Group Therapy, Gait, Safety, Therapeutic Exercise, Transfers Treatment Duration: Mar 14, 2019 Frequency: Modified Program (IRF) Estimated Hrs Per Day: 1.5 hours per day Patient and/or Family Agrees t: Yes Safety Risks/Education Patient Education: Gait Training, Transfer Techniques, Correct Positioning, Disease Process, Safety Issues Teaching Recipient: Patient Teaching Methods: Demonstration, Discussion Response to Teaching: Verbalize Understanding, Return Demonstration, Reinforcement Needed Time/GCodes Time In: 1350 Time Out: 1420 Total Billed Treatment Time: 30 Total Billed Treatment 1, GT 15m,EX15m GINA MCMAHON INVESTMENT DIRECTOR Mar 09, 2019 14:21
[2019-03-09 15:54] VITALS: BP 153/80
--- NOTE | 2019-03-09 16:57 | Cardiology Progress Note ---
Cardiology SOAP Progress Note Subjective: No cardiac complaints. Back pain is better. Objective: I&O/Vital Signs 03/09/19 03/09/19 03/09/19 03/09/19 05:07 05:45 05:47 06:19 Temp 37.0 36.2 37.0 37.0 Pulse 75 Resp 18 B/P (MAP) 165/84 (111) Pulse Ox 97 O2 Delivery Room Air 03/09/19 03/09/19 03/09/19 03/09/19 08:10 09:12 12:58 15:54 Temp 37.0 36.4 Pulse 74 70 Resp 14 B/P (MAP) 153/80 (104) Pulse Ox 97 95 O2 Delivery Room Air Room Air Room Air 03/09/19 00:00 Intake Total 720 ml Balance 720 ml Constitutional: No appears stated age; AAO x 3; No apparent distress, No PERRL, No well-developed, No well-nourished, No other Respiratory: No accessory muscle use, No respiratory distress, No chest tender, No chest expansion is symmetric; chest is bilaterally symmetric; No lungs clear to percussion; lungs clear to auscultation; No crackles, No rhonchi, No rales, No stridor, No wheezing, No pleural rub, No other Cardiovascular: regular rate-rhythm, S1 and S2 Gastrointestional: soft, audible bowel sounds Extremities: normal range of motion, non-tender, normal inspection, no lower extremity edema bilateral Neurologic/Psychiatric: no motor/sensory deficits, alert, normal mood/affect, oriented x 3 Skin: normal color Results/Procedures: Labs Laboratory Tests 03/09/19 05:37: White Blood Count 8.5, Red Blood Count 3.30L, Hemoglobin 9.9L, Hematocrit 30L, Mean Corpuscular Volume 92, Mean Corpuscular Hemoglobin 30, Mean Corpuscular Hemoglobin Concent 33, Red Cell Distribution Width 15.4H, Platelet Count 373, Mean Platelet Volume 9.0, Neutrophils (%) (Auto) 62, Lymphocytes (%) (Auto) 19, Monocytes (%) (Auto) 10, Eosinophils (%) (Auto) 8, Basophils (%) (Auto) 1, Neutrophils # (Auto) 5.3, Lymphocytes # (Auto) 1.6, Monocytes # (Auto) 0.8, Eosinophils # (Auto) 0.7H, Basophils # (Auto) 0.1, Sodium Level 139, Potassium Level 4.0, Chloride Level 103, Carbon Dioxide Level 21, Anion Gap 15H, Blood Urea Nitrogen 35H, Creatinine 1.73H, Estimat Glomerular Filtration Rate 28, BUN/Creatinine Ratio 20, Glucose Level 92, Calcium Level 10.2H, Corrected Calcium 10.4H, Total Bilirubin 0.3, Aspartate Amino Transf (AST/SGOT) 18, Alanine Aminotransferase (ALT/SGPT) 12, Alkaline Phosphatase 100, Total Protein 6.4, Albumin 3.7 A/P: Assessment/Dx: Recent spine surgery, Paroxysmal atrial fibrillation, Chronic kidney disease, Anemia, Hyponatremia, Syncope. Orthostatic hypotension Plan: Recent spine surgery, DVT prophylaxis. Paroxysmal atrial fibrillation, not on oral anticoagulation due to recent spine surgery. Flecainide as an outpatient. We need to the primary team/orthopedic surgery as to when oral anticoagulation can be restarted. Chronic kidney disease, defer to the primary team. Anemia, transfusion. Hyponatremia, unclear etiology. Syncope. Telemetry, echocardiogram. Telemetry shows no arrhythmias. Echocardiogram done 02/26/2019 shows hyperdynamic LV function with moderate diastolic dysfunction. Dehydration is likely. Generous IV fluid is recommended. Orthostatic hypotension, initially I recommended to start Florinef. However the blood pressure has been stable therefore we have not given Florinef. Follow-up with Dr. Baltazar for cardiology after discharge. Thank you for your consultation. Please call me if you have any questions. Malcom Lynn MD, FACP, FACC, FSCAI, FHRS, CCDS Interventional Cardiology Cardiac Electrophysiology Vascular Medicine and Endovascular Interventions Ludy LYNN MD Mar 09, 2019 16:57
[2019-03-09] MEDS: ALPRAZolam 0.25 MG (XANAX) TAB PO PRN (21:12)
[2019-03-09] MEDS: GABAPENTIN 100 MG (NEURONTIN) CAP PO SCH (21:13)
[2019-03-09] MEDS: POLYETHYLENE GLYCOL 17 GM (MIRALAX) PACK PO SCH (21:32)
[2019-03-10] MEDS: HYDROcodone/APAP 5 MG/325 MG (LORTAB) TAB PO PRN ×4 (00:59→14:22)
[2019-03-10] MEDS ORDERED: ALPR0.254 PO (05:56)
[2019-03-10] MEDS ORDERED: AMLO5TAB9 PO (05:56)
[2019-03-10] MEDS ORDERED: GABA-486 PO (05:56)
[2019-03-10] MEDS ORDERED: HYDR-3812 PO (05:56)
[2019-03-10] MEDS ORDERED: HYDR-3922 PO (05:56)
[2019-03-10] MEDS ORDERED: SENN-20 PO (05:56)
[2019-03-10] MEDS ORDERED: BACL10TA PO (05:56)
--- NOTE | 2019-03-10 05:58 | D/C HH Face to Face Order ---
D/C Face to Face Orders Reconcile Patient Problems Problems Reviewed?: Yes Instructions for Patient [facility] Patient Instructions/FollowUp: PCP in 1 week Physician to follow Patient: PCP Discharge Diet for Home: No Restrictions Patient Problems: Lumbar stenosis extensive surgery Anemia CRI HTN Goals for Patient: [place] Patient Data-Allergies,Ht & Wt Patient Allergies: Coded Allergies: oxycodone (Verified Allergy, Unknown, Vomiting, 02/26/19) Home Health Need/Face to Face Date of Face to Face: Mar 10, 2019 Clinical Findings: Generalized weakness and fatigue, Instability, Muscle weakness, Pain with ambulation, Unsteady gait I have seen Pt [id number]: Yes Discharged To: Home Diagnosis/Conditions: Lumbar stenosis extensive surgery Anemia CRI HTN Patient is Homebound due to: Jeremy fall risk due to instabilty, Muscle weakness, Pain w/ambulation Homebound Status Due to the above stated illness, injury or surgical procedure (medical condition or diagnosis) and associated clinical findings, the patient is homebound because of his/her inability to leave home except with aid of a supportive device and/or person AND leaving the home requires a considerable and taxing effort or is medically contraindicated. Pt req the following assistanc: Walker Home Health Nursing Orders Home Health Services Order: Nursing Services (BP monitoring), Seating Upholsterer-Evaluate & Treat, Physical Therapy-Evaluate & Treat Certify Stmt I certify that this patient is under my care and that I, a nurse practitioner or a physician; a teachers' assistant working with me, had a face to face encounter that - meets the physician face to face encounter requirements with this patient as dated. PIERCE JAMES DO Mar 10, 2019 05:58
--- NOTE | 2019-03-10 05:59 | Discharge Summary ---
Diagnosis/Chief Complaint Date of Admission Feb 28, 2019 at 09:15 Date of Discharge Discharge Date: Mar 10, 2019 Discharge Diagnosis Assessment: Status post lumbar spine decompression surgery POD # [address] Delong at [facility] [place] in [place] Syncope but has recurrent episodes in the past at home Orthostasis episodes in the past chronic but improved since DC HCTZ but she does not think there is a correlation? HTN labile levels and will start Norvasc 5mg PO BID today 03/07/19 Renal insufficiency improved Hyponatremia improved with fluid restriction and DC HCTZ so lifted fluid restriction since sodium level normal Anemia s/p 1 unit of blood at [facility] and received 1 unit Saturday since hemoglobin 7.1 and has cardiac risk factors Saturday 9.9 Dehydration on admit resolved with IV fluids Chronic AF Plan: Home meds except Plavix due to recent spine surgery but restarting Plavix today SCD's Cardiology evaluation appreciated Fluid restriction DC Venofer DC after 1 dose since IV infiltrated 1 unit of blood Saturday with Lasix afterwards Inpatient rehabilitation to continue recovery Hold [facility] for now DC Saturday Discharge Summary Discharge Physical Examination Allergies: Coded Allergies: oxycodone (Verified Allergy, Unknown, Vomiting, 02/26/19) Vitals & I&Os Vital Signs Date Time Temp Pulse Resp B/P (MAP) Pulse Ox O2 Delivery O2 Flow Rate FiO2 03/10/19 14:31 36.8 77 18 139/59 96 Room Air 03/05/19 15:00 21 General Appearance: Alert, Oriented X3, Cooperative Respiratory: Clear to Auscultation Cardiovascular: Regular Rate Neuro: Normal Gait, Normal Speech, Strength at 5/5 X4 Ext Psych/Mental Status: Mental Status NL Hospital Course Was the Problem List Reviewed?: Yes Hospital Course: Pt had an uneventful hospital course for ten days after transferred from [place] to higher level of care with cardiology evaluation required transfusion in addition to IV fluids with great improvement in renal failure. She has moved down to inpatient rehab and was able to participate after multiple medications given to help with the back pain and left radiculopathy after extensive spine surgery by Dr. Delong. After multiple attempts she regained enough function by participating in all required therapies. Back brace was maintained and bowels returned back to normal. She was minimally using Hydrocodone And Xanax for her pain and she will ave close follow up with Dr. Delong this afternoon and will go home after walker order placed along with home health. She was restarted on her Plavix. Overall she improved and will do well as long as she continues her aggressive treatment. Labs (last 24 hrs) Laboratory Tests 03/02/19 05:40: White Blood Count 10.5, Red Blood Count 3.28L, Hemoglobin 9.8L, Hematocrit 30L, Mean Corpuscular Volume 90, Mean Corpuscular Hemoglobin 30, Mean Corpuscular Hemoglobin Concent 33, Red Cell Distribution Width 14.6H, Platelet Count 301, Mean Platelet Volume 9.0, Neutrophils (%) (Auto) 69, Lymphocytes (%) (Auto) 18, Monocytes (%) (Auto) 8, Eosinophils (%) (Auto) 6, Basophils (%) (Auto) 0, Neutrophils # (Auto) 7.2, Lymphocytes # (Auto) 1.9, Monocytes # (Auto) 0.8, Eosinophils # (Auto) 0.6H, Basophils # (Auto) 0.0, Sodium Level 135, Potassium Level 4.1, Chloride Level 99, Carbon Dioxide Level 22, Anion Gap 14, Blood Urea Nitrogen 24H, Creatinine 1.48H, Estimat Glomerular Filtration Rate 34, BUN/Creatinine Ratio 16, Glucose Level 101, Calcium Level 10.1, Corrected Calcium 10.4H, Total Bilirubin 0.4, Aspartate Amino Transf (AST/SGOT) 27, Alanine Aminotransferase (ALT/SGPT) 13, Alkaline Phosphatase 85, Total Protein 6.3L, Albumin 3.6 03/09/19 05:37: White Blood Count 8.5, Red Blood Count 3.30L, Hemoglobin 9.9L, Hematocrit 30L, Mean Corpuscular Volume 92, Mean Corpuscular Hemoglobin 30, Mean Corpuscular Hemoglobin Concent 33, Red Cell Distribution Width 15.4H, Platelet Count 373, Mean Platelet Volume 9.0, Neutrophils (%) (Auto) 62, Lymphocytes (%) (Auto) 19, Monocytes (%) (Auto) 10, Eosinophils (%) (Auto) 8, Basophils (%) (Auto) 1, Neutrophils # (Auto) 5.3, Lymphocytes # (Auto) 1.6, Monocytes # (Auto) 0.8, Eosinophils # (Auto) 0.7H, Basophils # (Auto) 0.1, Sodium Level 139, Potassium Level 4.0, Chloride Level 103, Carbon Dioxide Level 21, Anion Gap 15H, Blood Urea Nitrogen 35H, Creatinine 1.73H, Estimat Glomerular Filtration Rate 28, BUN/Creatinine Ratio 20, Glucose Level 92, Calcium Level 10.2H, Corrected Calcium 10.4H, Total Bilirubin 0.3, Aspartate Amino Transf (AST/SGOT) 18, Alanine Aminotransferase (ALT/SGPT) 12, Alkaline Phosphatase 100, Total Protein 6.4, Albumin 3.7 Pending Labs Laboratory Tests 03/02/19 05:40: White Blood Count 10.5, Red Blood Count 3.28, Hemoglobin 9.8, Hematocrit 30, Mean Corpuscular Volume 90, Mean Corpuscular Hemoglobin 30, Mean Corpuscular Hemoglobin Concent 33, Red Cell Distribution Width 14.6, Platelet Count 301, Mean Platelet Volume 9.0, Neutrophils (%) (Auto) 69, Lymphocytes (%) (Auto) 18, Monocytes (%) (Auto) 8, Eosinophils (%) (Auto) 6, Basophils (%) (Auto) 0, Neutrophils # (Auto) 7.2, Lymphocytes # (Auto) 1.9, Monocytes # (Auto) 0.8, Eosinophils # (Auto) 0.6, Basophils # (Auto) 0.0, Sodium Level 135, Potassium Level 4.1, Chloride Level 99, Carbon Dioxide Level 22, Anion Gap 14, Blood Urea Nitrogen 24, Creatinine 1.48, Estimat Glomerular Filtration Rate 34, BUN/Creatinine Ratio 16, Glucose Level 101, Calcium Level 10.1, Corrected Calcium 10.4, Total Bilirubin 0.4, Aspartate Amino Transf (AST/SGOT) 27, Alanine Aminotransferase (ALT/SGPT) 13, Alkaline Phosphatase 85, Total Protein 6.3, Albumin 3.6 03/09/19 05:37: White Blood Count 8.5, Red Blood Count 3.30, Hemoglobin 9.9, Hematocrit 30, Mean Corpuscular Volume 92, Mean Corpuscular Hemoglobin 30, Mean Corpuscular Hemoglobin Concent 33, Red Cell Distribution Width 15.4, Platelet Count 373, Mean Platelet Volume 9.0, Neutrophils (%) (Auto) 62, Lymphocytes (%) (Auto) 19, Monocytes (%) (Auto) 10, Eosinophils (%) (Auto) 8, Basophils (%) (Auto) 1, Neutrophils # (Auto) 5.3, Lymphocytes # (Auto) 1.6, Monocytes # (Auto) 0.8, Eosinophils # (Auto) 0.7, Basophils # (Auto) 0.1, Sodium Level 139, Potassium Level 4.0, Chloride Level 103, Carbon Dioxide Level 21, Anion Gap 15, Blood Urea Nitrogen 35, Creatinine 1.73, Estimat Glomerular Filtration Rate 28, BUN/Creatinine Ratio 20, Glucose Level 92, Calcium Level 10.2, Corrected Calcium 10.4, Total Bilirubin 0.3, Aspartate Amino Transf (AST/SGOT) 18, Alanine Aminotransferase (ALT/SGPT) 12, Alkaline Phosphatase 100, Total Protein 6.4, Albumin 3.7 Discharge Home Medications: Active Scripts Active Senna-Time S Tablet (Sennosides/Docusate Sodium) 1 Each Tablet 2 Ea PO BID Gabapentin 100 Mg Capsule 100 Mg PO HS Amlodipine Besylate 5 Mg Tablet 5 Mg PO BID Hydralazine HCl 10 Mg Tablet 10 Mg PO Q6HR PRN Baclofen 10 Mg Tablet 5 Mg PO Q4HR PRN Hydrocodone-Acetamin 5-325 mg (Hydrocodone/Acetaminophen) 1 Each Tablet 1 Tab PO Q4H PRN Alprazolam 0.25 Mg Tablet 0.125-0.25 Mg PO DAILY PRN TAKES 1/2 TO 1 (0.25MG) TABLET Reported Plavix (Clopidogrel Bisulfate) 75 Mg Tablet 75 Mg PO DAILY Vitamin D3 (Cholecalciferol (Vitamin D3)) 2,000 Unit Capsule 2,000 Unit PO DAILY Biotin 5,000 Mcg Tab.subl 5,000 Mcg SL HS Multivitamins (Multivitamin) 1 Each Tablet 1 Tab PO DAILY Allopurinol 100 Mg Tablet 100 Mg PO DAILY LAST FILLED #90 11-05-18 Flecainide Acetate 150 Mg Tablet 150 Mg PO BID Instructions to patient/family Please see electronic discharge instructions given to patient. Diagnosis/Problems Diagnosis/Problems (1) Status post lumbar spine surgery for decompression of spinal cord (2) Iron deficiency (3) Anemia (4) Anxiety (5) Hyponatremia (6) Renal insufficiency (7) Syncope (8) Hypertension (9) Orthostasis (10) Constipation (11) Transfusion of blood during current hospitalisation Clinical Quality Measures DVT/VTE Risk/Contraindication: Risk Factor Score Per Nursin RFS Level Per Nursing on Admit: 3=High Contraindications-Pharm: Other *list below* Other: Recent spine surgery high risk for spinal hematoma and paralysis PIERCE JAMES DO Mar 10, 2019 05:59
[2019-03-10 06:00] VITALS: BP 166/76
[2019-03-10 08:00] VITALS: BP 139/59
--- NOTE | 2019-03-10 08:00 | NUR ---
PLANS TO BE DISCHARGED AT 1430 TODAY AND THEN GO TO DR. PRUETT APPOINTMENT. STATES SLEPT FOR 4.5 HOURS STRAIGHT LAST NIGHT AND FEELING GOOD THIS MORNING. DAUGHTER AT BEDSIDE. STATES LORTAB RELIEVING PAIN.
--- NOTE | 2019-03-10 08:47 | Therapy Team Discharge Summary ---
Therapy Discharge Summary Discharge Recommendations Date of Discharge 03-10-18 Therapy D/C Recommendations: Home w/ Family Support, Occupational Therapy Home Care Occupational Therapy Pt. is discharging home with family support. Pt. requires SBA with most ADLs, and min assist with footwear. Therefore, did not fully meet ADL goals of full independence. Pt. is staying with daughter. All equipment recommendations have been made. Recommend follow up OT care. Decreased Activ Tolerance, Impaired I ADL's, Impaired Self-Care Skills PT Granulator Goals Granulator Goals PT Granulator Goals Time Frame: Mar 14, 2019 Roll Left to Right (QC): 6 Sit to Lying (QC): 6 Lying-Sitting on Side/Bed(QC): 6 Sit to Stand (QC): 6 Chair/Apl-fw-Dpilb Xfer(QC): 6 Car Transfer (QC): 6 Does the Patient Walk: Yes Walk 10 feet (QC): 6 Walk 10ft-Uneven Surface(QC): 6 Walk 50ft with 2 Turns (QC): 6 Walk 150 ft (QC): 6 Does the Pt use WC or Scooter?: No Wheel 50 feet with 2 turns (QC: 9 1 Step (curb) (QC): 6 4 Steps (QC): 4 12 Steps (QC): 4 Picking up an Object (QC): 88 OT Intermediate Goals Intermediate Goals Time Frame: Mar 14, 2019 Eating (QC): 6 (met) Oral Hygiene (QC): 6 (not met) Shower/Bathe Self (QC): 6 (not met) Upper Body Dressing (QC): 6 (not met) Lower Body Dressing (QC): 6 (not met) On/Off Footwear (QC): 6 (not met) Toileting Hygiene (QC): 6 (not met) Toilet/Commode Transfer (QC): 6 (not met) Additional Goals: 1-Demonstrate ADL Tasks, 2-Verbalize Understanding, 3- ImproveStrength/Dirk 1=Demonstrate adherence to instructed precautions during ADL tasks. 2=Patient will verbalize/demonstrate understanding of assistive devices/modifications for ADL. 3=Patient will improve strength/tolerance for activity to enable patient to perform ADL's. RADHA JACOME OT Mar 10, 2019 08:47
[2019-03-10] MEDS: BACLOFEN 10 MG (LIORESAL) TAB PO PRN ×2 (08:53→14:21)
[2019-03-10] MEDS: FLECAINIDE 100 MG (TAMBOCOR) TAB PO SCH (08:53)
[2019-03-10] MEDS: CLOPIDOGREL 75 MG (PLAVIX) TABLET PO SCH (08:53)
[2019-03-10] MEDS: ALLOPURINOL 100 MG (ZYLOPRIM) TAB PO SCH (08:54)
[2019-03-10] MEDS: amLODIPine 5 MG (NORVASC) TAB PO SCH (08:54)
[2019-03-10] MEDS: DOCUSATE SODIUM 100 MG (COLACE) CAP PO SCH (08:55)
[2019-03-10] MEDS: DICLOFENAC 1% GEL 100 GM (VOLTAREN) TUBE TOP SCH ×2 (08:56→13:00)
[2019-03-10] MEDS: SENNA W/DOCUSATE (SENOKOT S) TABLET PO SCH (08:56)
--- NOTE | 2019-03-10 09:25 | Therapy Team Discharge Summary ---
Therapy Discharge Summary Discharge Recommendations Date of Discharge Therapy D/C Recommendations: Home w/ Family Support, Occupational Therapy Home Care Physical Therapy Patient came to rehab with syncope, weakness, s/p lumbar fusion. Upon evaluation patient performed bed mobility and supine <-> sit with min assist, transfers with CGA, car transfer max assist, ambulated 150' with a rolling walker with CGA (including 50' with at least 2 turns of 90 degrees but needed min assist for 10' over an uneven surface), and was able to go up and down 1 s tep using a rolling walker with min assist. Patient has been performing bed mobility and transfer training, balance and endurance training, functional strengthening, stair training, gait training, and education. Patient has made good progress and has met all of her terminal carman goals except for stairs. Now, patient performs bed mobility and transfers with independence, ambulates 150' with a rolling walker with independence (including 50' with at least 2 turns of 90 degrees and 10' over an uneven surface), and can go up and down 4 steps using 2 handrails with setup. Patient is discharging from this facility today and will be discharged from PT at this time. Occupational Therapy Decreased Activ Tolerance, Impaired I ADL's, Impaired Self-Care Skills PT Cheese Grader Goals Cheese Grader Goals PT Cheese Grader Goals Time Frame: Mar 14, 2019 Roll Left to Right (QC): 6 Sit to Lying (QC): 6 Lying-Sitting on Side/Bed(QC): 6 Sit to Stand (QC): 6 Chair/Ifq-cs-Fefij Xfer(QC): 6 Car Transfer (QC): 6 Does the Patient Walk: Yes Walk 10 feet (QC): 6 Walk 10ft-Uneven Surface(QC): 6 Walk 50ft with 2 Turns (QC): 6 Walk 150 ft (QC): 6 Does the Pt use WC or Scooter?: No Wheel 50 feet with 2 turns (QC: 9 1 Step (curb) (QC): 6 4 Steps (QC): 4 12 Steps (QC): 4 Picking up an Object (QC): 88 OT Senior Living Goals Cheese Grader Goals Time Frame: Mar 14, 2019 Eating (QC): 6 (met) Oral Hygiene (QC): 6 (not met) Shower/Bathe Self (QC): 6 (not met) Upper Body Dressing (QC): 6 (not met) Lower Body Dressing (QC): 6 (not met) On/Off Footwear (QC): 6 (not met) Toileting Hygiene (QC): 6 (not met) Toilet/Commode Transfer (QC): 6 (not met) Additional Goals: 1-Demonstrate ADL Tasks, 2-Verbalize Understanding, 3- ImproveStrength/Dirk 1=Demonstrate adherence to instructed precautions during ADL tasks. 2=Patient will verbalize/demonstrate understanding of assistive devices/modifications for ADL. 3=Patient will improve strength/tolerance for activity to enable patient to perform ADL's. LIZA HILARIO PT Mar 10, 2019 09:25
--- NOTE | 2019-03-10 12:46 | NUR ---
LINER MACHINE OPERATOR met with patient to review C provider options for [facility]. Based on local availability, [facility], all of which have staffing available. Patient selected [facility], a patient choice form was completed. Referral faxed to [phone].
--- NOTE | 2019-03-10 14:30 | NUR ---
AT 1330, DR. UREÑA WAS HERE TO SEE PATIENT AND PER HIS RECOMMENDATION, THIS NURSE LEFT MESSAGE WITH DR. SULLIVAN' NURSE TO FIND OUT IF THERE IS A REASON PATIENT IS NOT ON A BLOOD THINNER BECAUSE SHE HAS A HISTORY OF AFIB. ALSO CALLED DR. SULLIVAN' ION IMPLANT MACHINE OPERATOR TO MAKE A FOLLOW UP APPOINTMENT FOR PATIENT. HAVE NOT HEARD BACK FROM HIS OFFICE, BUT THEY WERE GIVEN PHONE NUMBER OF VERONICA (PATIENT'S DAUGHTER) TO CALL TO GIVE THIS INFORMATION TO.
[2019-03-10 14:31] VITALS: BP 139/59
--- NOTE | 2019-03-10 14:49 | NUR ---
SS DISCHARGE DME: FWW coordinated with [facility] as planned, daughter Vika here this a.m. and went to pick up attendant so that she could select a hip kit and walker basket. PLACARD: Physician signed temporary disability placard provided to patient. Vika will transport patient to followup with surgeon then on home to [place]. Discharge completed with assistance of colleague re [facility] services set up.
--- NOTE | 2019-03-10 19:01 | Cardiology Progress Note ---
Cardiology SOAP Progress Note Subjective: No cardiac complaints Objective: I&O/Vital Signs 03/10/19 03/10/19 03/10/19 08:00 09:00 14:31 Temp 36.8 Pulse 77 77 Resp 18 B/P (MAP) 139/59 (85) 139/59 Pulse Ox 96 O2 Delivery Room Air Room Air 03/10/19 00:00 Intake Total 600 ml Balance 600 ml Constitutional: No appears stated age; AAO x 3; No apparent distress, No PERRL, No well-developed, No well-nourished, No other Respiratory: No accessory muscle use, No respiratory distress, No chest tender, No chest expansion is symmetric; chest is bilaterally symmetric; No lungs clear to percussion; lungs clear to auscultation; No crackles, No rhonchi, No rales, No stridor, No wheezing, No pleural rub, No other Cardiovascular: regular rate-rhythm, S1 and S2 Gastrointestional: soft, audible bowel sounds Extremities: normal range of motion, non-tender, normal inspection, no lower extremity edema bilateral Neurologic/Psychiatric: no motor/sensory deficits, alert, normal mood/affect, oriented x 3 Skin: normal color A/P: Assessment/Dx: Recent spine surgery, Paroxysmal atrial fibrillation, Chronic kidney disease, Anemia, Hyponatremia, Syncope. Orthostatic hypotension Plan: Recent spine surgery, DVT prophylaxis. Paroxysmal atrial fibrillation, not on oral anticoagulation due to recent spine surgery. Flecainide as an outpatient. We need to the primary team/orthopedic surgery as to when oral anticoagulation can be restarted. I discussed at length with the patient, family and RN. Chronic kidney disease, defer to the primary team. Anemia, transfusion. Hyponatremia, unclear etiology. Syncope. Telemetry, echocardiogram. Telemetry shows no arrhythmias. Echocardiogram done 02/26/2019 shows hyperdynamic LV function with moderate diastolic dysfunction. Dehydration is likely. Generous IV fluid is recommended. Orthostatic hypotension, initially I recommended to start Florinef. However the blood pressure has been stable therefore we have not given Florinef. Follow-up with Dr. Baltazar for cardiology after discharge. Thank you for your consultation. Please call me if you have any questions. Malcom Lynn MD, FACP, FACC, FSCAI, FHRS, CCDS Interventional Cardiology Cardiac Electrophysiology Vascular Medicine and Endovascular Interventions Ludy LYNN MD Mar 10, 2019 19:01
== END 2019-03-10 14:30 | disposition home health service (06) | DRG 552 ==
LOC: UNDODISIN 09:20
PROVIDERS: ADMIT Internal Medicine; ATTEND Internal Medicine
DX: M54.16 Radiculopathy, lumbar region (principal); R29.898 Other symptoms and signs involving the musculoskeletal system; Z47.89 Encounter for other orthopedic aftercare; I95.1 Orthostatic hypotension; E86.0 Dehydration; D62 Acute posthemorrhagic anemia; E87.1 Hypo-osmolality and hyponatremia; K59.09 Other constipation; I48.0 Paroxysmal atrial fibrillation; I12.9 Hypertensive chronic kidney disease with stage 1 through stage 4 chronic kidney disease, or unspecified chronic kidney disease; N18.9 Chronic kidney disease, unspecified; E78.00 Pure hypercholesterolemia, unspecified; M81.0 Age-related osteoporosis without current pathological fracture; M19.91 Primary osteoarthritis, unspecified site; M54.9 Dorsalgia, unspecified; M10.9 Gout, unspecified; F41.9 Anxiety disorder, unspecified; R55 Syncope and collapse
CPT/HCPCS: 36415; 80053; 85025